=== PATIENT | female | born 1970 | race Caucasian/White ===

== ENCOUNTER → 2017-06-03 08:47 | Outpatient (CLI) | payer MEDICAID, SELFPAY ==
--- NOTE | 2017-06-03 08:51 | US_ITS ---
US thyroid HISTORY: Thyromegaly, weight gain and fatigue ITS.REASON: THYROMEGALY ORDERING PHYSICIAN: Anne Hancock PATIENT AGE: 47 years COMPARISON: None FINDINGS: Right lobe: The right lobe measures 4.3 x 1.3 x 1.6 cm. Homogeneous echogenicity. No mass. Left lobe: Left lobe measures 3.9 x 1.2 x 1.3 cm. Homogeneous echogenicity. No mass. Isthmus: The isthmus is slightly prominent measuring up to 5 mm in thickness. IMPRESSION: Mild thyromegaly otherwise negative thyroid ultrasound. No thyroid mass evident
== END ==
PROVIDERS: Family Provider Internal Medicine Adolescent Medicine; PCP Internal Medicine Adolescent Medicine; Visit Provider Nurse Practitioner Family
DX: E01.0 Iodine-deficiency related diffuse (endemic) goiter (principal)
CPT/HCPCS: 76536

== ENCOUNTER → 2020-11-01 18:36 | Outpatient (CLI) | payer OTHER, SELFPAY ==
[2020-11-01 19:16] LABS: Basophils % 0.3 % (0.1-2.0); Eosinophils # 0.2 K/mm3 (0.0-0.4); Eosinophils % 1.5 % (0.1-12.0); Hemoglobin 15.1 g/dL (12.2-16.2); Lymphocytes # 2.6 K/mm3 (0.7-4.5); Lymphocytes % 25.7 % (10-50); Mean Corpuscular HGB Conc 32.9 g/dL (31.8-35.4); Mean Corpuscular Hemoglobin 29.2 pg (27.0-31.2); Mean Corpuscular Volume 88.7 fl (81-99); Mean Platelet Volume 9.5 fl (7.4-10.4); Monocytes # 0.4 K/mm3 (0.1-1.0); Monocytes % 4.3 % (1.7-9.3); Neutrophils # 6.8 K/mm3 (1.8-7.8); Neutrophils % 68.3 % (37.0-80.0); Platelet Count 328 K/mm3 (142-424); Red Blood Count 5.19 M/mm3 (4.20-5.40); Red Cell Distribution Width 14.2 % (11.5-17.5)
[2020-11-01 19:39] LABS: Chloride 106 mmol/L (98-107)
[2020-11-01 19:40] LABS: Potassium 4.8 mmoL/L (3.5-5.1); Sodium 140 mmol/L (136-145)
[2020-11-01 19:42] LABS: Alanine Aminotransferase 24 U/L (12-78); Albumin Level 4.5 g/dl (3.5-5.0); Albumin/Globulin Ratio 1.6 (1.1-1.8); Alkaline Phosphatase 44 U/L (38-126); Anion Gap 13.8 mEq/L (5-15); Aspartate Amino Transferase 24 U/L (14-36); Bilirubin,Total 0.4 mg/dl (0.2-1.3); Blood Urea Nitrogen 16 mg/dl (7-17); Carbon Dioxide 25 mmol/L (22.0-30.0); Cholesterol 200 mg/dl (140-200); Estimated Glomerular Filt Rate 106 ml/min (>60); GFR (African American) 129 ML/MIN (>60); Globulin 2.9 g/dL (1.3-3.2); Total Protein,Serum 7.4 g/dl (6.3-8.2); Triglycerides 111 mg/dl (30-150); VLDL Cholesterol 22 mg/dL (0-40)
[2020-11-01 19:43] LABS: Calcium 9.4 mg/dl (8.4-10.2); Chol/HDL Ratio 4.3 (1-3.5); Glucose 101 mg/dl (74-100); HDL Cholesterol 47 mg/dl (40-60)
[2020-11-01 19:54] LABS: Direct LDL Cholesterol 120.86 mg/dL (100-129)
[2020-11-01 20:12] LABS: Thyroid Stimulating Hormone 1.06 uIU/mL (0.465-4.68)
[2020-11-01 21:48] LABS: 25-OH Vitamin D, Total 41.4 ng/mL (30-100)
== END ==
PROVIDERS: Visit Provider Nurse Practitioner Family
DX: L40.59 Other psoriatic arthropathy (principal); R63.5 Abnormal weight gain; E78.5 Hyperlipidemia, unspecified
CPT/HCPCS: 80053; 80061; 82306; 84443; 85025

== ENCOUNTER → 2021-02-19 09:37 | Outpatient (CLI) | payer OTHER, SELFPAY ==
--- NOTE | 2021-02-19 09:42 | FL_ITS ---
PROCEDURE: FL UPPER GI W AIR CLINICAL INDICATION: DYSPHAGIA COMPARISON: No exams were available for comparison TECHNIQUE: FLUOROSCOPY TIME : 1.32 minutes FINDINGS: The esophagus, stomach, and duodenum have an unremarkable appearance.There is no evidence of hiatal hernia. No ulcer or mass evident. There is mild prominence of the mucosa at the duodenal bulb and 2nd portion of the duodenum. There is normal peristalsis. The duodenal C-loop is nondisplaced. IMPRESSION: Mild prominence of the mucosa of the duodenal bulb and 2nd portion of the duodenum which may be seen with duodenitis. Otherwise negative Dictated by: Galdino Monzon MD 02/19/2021 13:57 Galdino Monzon MD in [place] 02/19/2021 13:57
== END ==
PROVIDERS: PCP Internal Medicine Adolescent Medicine; Visit Provider Nurse Practitioner Family
DX: R13.10 Dysphagia, unspecified (principal)
CPT/HCPCS: 74246

== ENCOUNTER → 2021-03-27 07:50 | Outpatient (CLI) | payer OTHER, SELFPAY | PROVIDERS: Visit Provider Internal Medicine | DX: Z20.822 Contact with and (suspected) exposure to COVID-19 (principal) | CPT/HCPCS: C9803; U0003; U0005 ==

== ENCOUNTER 2021-03-28 10:02 | Day surgery (SDC) | payer OTHER, SELFPAY ==
[2021-03-26 10:39] VITALS: BMI 28.1
--- NOTE | 2021-03-26 12:46 | SUR.PREOP ---
03/26/21 @ 9657 Called [facility] Orly colon prep Jaron. SPoke with Desean alcala. Order from Dr Cao
--- NOTE | 2021-03-26 12:48 | SUR.PREOP ---
TC to pt to let her know that GoLytely prep was called in to [facility] pharmacy in [place]. Also reviewed prep instructions with pt. Pt verbalized understanding of all instructions.
[2021-03-28] VITALS (7 sets, daily range): BP systolic 73–123; BP diastolic 38–84; PULSE 64–78; RESP 14–18; TEMP 36.1–37.3; O2SAT 91–100
[2021-03-28 10:21] LABS: Urine Pregnancy, HCG Qual. Negative (Negative)
--- NOTE | 2021-03-28 11:19 | HMH.SCOPE ---
- Procedure: Date: 03/28/21 Patient Date of :: 1970 Procedure Performed:: EGD Indications:: Abdominal pain. GERD. Intermittent dysphagia Performing Provider:: Tomas Cao MD Referring Provider:: Darian Escamilla MD Sedation:: See RN notes Procedure:: The gastroscope was gently passed through the incisoral orifice into the oral cavity and under direct visualization the esophagus was intubated. The endoscope was passed down the esophagus, through the stomach, and into the duodenum. Color, texture, mucosa, and anatomy of the esophagus, stomach, and duodenum were carefully examined with the scope. Findings:: Oropharynx: normal Esophagus: normal. Biopsies obtained distal and mid esophagus. Empiric dilatation performed sequentially with 18-20 mm tts balloon EG Junction: intact at 40 cm Cardia: normal Fundus: normal Body: Mild gastritis. Biopsies obtained Antrum: Mild gastritis. Biopsies obtained Duodenal bulb: Edematous appearing mucosa. Mild duodenitis. Biopsies obtained Duodenum (second and third portion): normal. Biopsies obtained Recommendations:: Await pathology results Recomend use of omeprazole (prilosec) or famotidine (pepcid) as needed Follow up with referring provider Complications:: None Estimated blood obtained (mL): 0
--- NOTE | 2021-03-28 11:23 | HMH.SCOPE ---
- Procedure: Date: 03/28/21 Patient Date of :: 1970 Procedure Performed:: Colonoscopy Indications:: The patient is a 51 year old who presents for screening colonoscopy Performing Provider:: Tomas Cao MD Referring Provider:: Darian Escamilla MD Sedation:: See RN notes Procedure:: After placing the patient in the left lateral decubitus position, the colonoscopy was gently inserted into the rectum and under direct visualization advanced to the cecum which was identified by transillumination in the right lower quadrant, identification of the ileocecal valve, appendiceal orifice, and cecal strap. Color, texture, mucosa, and anatomy of the colon were carefully examined with the scope. Findings:: Anal canal: normal Rectum: normal Sigmoid colon: Sessile polyp less than 5 mm in size. Removed with cold snare polypectomy. Polyp retrieved. Diverticulosis. Descending colon: normal without polyps or inflammatory changes Splenic flexure: normal Transverse colon: normal without polyps or inflammatory changes Hepatic flexure: normal Ascending colon: normal without polyps or inflammatory changes Cecum: normal Terminal ileum: not visualized Recommendations:: Await pathology results Repeat colonoscopy in 5 years Follow up with referring provider Complications:: none Estimated blood obtained (mL): 0
--- NOTE | 2021-03-28 13:28 | HMH.ANESCL ---
[facility] Anesthesia Checklist - Patient Identification Patient Identification: Arm Band, Verbal (Name & ) - Structural Data Admitted From: Home Planned Operative Procedure/s: EGD/Colonoscopy Consent for Planned Operative Procedure(s) Verified: Yes Verified Documents: Surgical Consent - NPO Status Verified Time NPO: 00:00 - Chart Verification Results Verified: None - Airway Assessment C-Spine Mobility Assessed: Yes TMJ Mobility Assessed: Yes Dentition: Good Dentition - Neurological Assessment Level of Consciousness: Awake, Alert, Appropriate - Anesthesia Plan Anesthesia Risk discussed: Yes ASA Class: II Anesthesia Type: General [facility] History I have reviewed the patient's past medical history: Yes Medical History: Reports:: Hyperlipidemia Denies:: Cancer, Diabetes Mellitus Type 1, Diabetes Mellitus Type 2, Internal Pacemaker, MRSA, Seizures *Have you ever received a pneumonia vaccine?: No *Have you received a flu vaccine this season?: Yes Anesthesia experience/problems:: none Other Surgeries: No: Pacemaker Amputation: No Fractures: No - *Social History Last grade of school completed: High school graduate Smoking Status: Current every day smoker Tobacco Type: cigarettes # Packs/Day (cigarettes): 1 Alcohol Intake: never Substance Use Type: denies use *Occupational Status:: employed *Travel in the last 8 weeks: None Family Hx:: No significant family history
== END 2021-03-28 12:17 | disposition home or self-care (01) ==
LOC: OUTP 10:03
PROVIDERS: PCP Internal Medicine Adolescent Medicine; Visit Provider Internal Medicine
PROC: 0DJ08ZZ Inspection of Upper Intestinal Tract, Via Natural or Artificial Opening Endoscopic (ICD-10-PCS; CPT 43235; principal; 2021-03-28 11:00)
DX: Z12.11 Encounter for screening for malignant neoplasm of colon (principal); K21.9 Gastro-esophageal reflux disease without esophagitis; K29.80 Duodenitis without bleeding; K63.5 Polyp of colon; K57.32 Diverticulitis of large intestine without perforation or abscess without bleeding; E78.5 Hyperlipidemia, unspecified; Z88.1 Allergy status to other antibiotic agents; Z88.6 Allergy status to analgesic agent; Z88.8 Allergy status to other drugs, medicaments and biological substances; Z79.899 Other long term (current) drug therapy
CPT/HCPCS: 43239; 45385; 81025; C1726

== ENCOUNTER → 2021-04-04 07:51 | Outpatient (CLI) | payer OTHER, SELFPAY ==
--- NOTE | 2021-04-04 07:54 | MM_ITS ---
PROCEDURE INFORMATION: Exam: Screening 3D Mammography Exam date and time: 04/04/2021 7:54 AM Age: 51 years old Clinical indication: Encounter for screening mammogram for malignant neoplasm of breast TECHNIQUE: Imaging protocol: Screening tomosynthesis and 2D mammography including computer-aided detection (CAD) when performed. COMPARISON: DMSB DIGITAL MAMM-SCREEN BILATERAL 12/20/2011 1:03 PM FINDINGS: MAMMOGRAPHY: Breast composition: The breast tissue is heterogeneously dense, which may obscure small masses. Mass: 1.9 cm mass in the middle third of the left approximate 3 o'clock axis may be on the basis of underlying cystic change Architectural distortion: None. Calcifications: No suspicious calcifications. Asymmetric density: None. Skin thickening: None. Axillary adenopathy: None. IMPRESSION: Patient to be recalled for left breast ultrasound for further evaluation of a left breast mass. ASSESSMENT: BI-RADS Category 0: Incomplete- Need Additional Imaging Evaluation and/or Prior Mammograms for Comparison
--- NOTE | 2021-04-04 07:54 | CT_ITS ---
FINAL REPORT CLINICAL HISTORY: CURRENT SMOKER FINDINGS: Low-Dose Chest CT CTDI vol (mGy): 2.90 DLP (mGy-cm): 87.25 Axial images were obtained from the lung apex to the mid abdomen by computed tomography. Low-dose protocol was utilized. FINDINGS: CHEST: There is no axillary adenopathy. There is no hilar or mediastinal adenopathy. The heart is proper size. There is no pericardial or pleural effusion. Limited images of the upper abdomen are unremarkable. Lung window images demonstrate mild emphysema. There is mild scarring. There are 2 adjacent nodules in the superior segment of the right lower lobe measuring 10 mm and 9 mm versus a focally dilated blood vessel. This could possibly represent a focal AVN. There is a 3 mm nodule in the left lung base on image 47. IMPRESSION: Lung RADS category 4A. Recommend PET-CT and/or post contrast chest CT. Reviewed, Interpreted and Dictated by Levy Galindo III, MD Transcribed by Yara Florence Authenticated by Levy Galindo III, MD on 04/04/2021 02:51:49 PM [facility]
== END ==
PROVIDERS: PCP Internal Medicine Adolescent Medicine; Visit Provider Nurse Practitioner Family
DX: Z12.31 Encounter for screening mammogram for malignant neoplasm of breast (principal); Z87.891 Personal history of nicotine dependence; Z12.2 Encounter for screening for malignant neoplasm of respiratory organs
CPT/HCPCS: 71271; 77063; 77067

== ENCOUNTER → 2021-04-17 12:38 | Outpatient (CLI) | payer OTHER, SELFPAY ==
--- NOTE | 2021-04-17 12:42 | CT_ITS ---
FINAL REPORT CLINICAL HISTORY: PULMONARY NODULES COMPARISON: 04/04/2021 FINDINGS: Axial CT images of the chest were obtained with contrast. Coronal reformatted images were also obtained. This study was performed with techniques to keep radiation doses as low as reasonably achievable, (ALARA). Individualized dose reduction techniques using automated exposure control or adjustment of mA and/or KV according to the patient's size were employed. There is mild upper right paratracheal adenopathy measuring up to 1.6 cm which is nonspecific, may be reactive. No axillary mass is identified. Again identified is anterior right lower lobe nodules measuring up to 10 and 9 mm which do not show evidence of contrast enhancement. These do not appear to be dilated blood vessels. Mild atelectasis is noted. Limited images of the upper abdomen reveal no mass or localized inflammatory process. IMPRESSION: Anterior right lower lobe nodules which do not appear to be dilated blood vessels but have a nonspecific appearance. Recommend PET/CT or short-term interval follow-up CT in 3 months. Reviewed, Interpreted and Dictated by Levy Galindo III, MD Transcribed by Rosalina Castro Authenticated by Levy Galindo III, MD on 04/17/2021 02:32:24 PM [facility]
--- NOTE | 2021-04-17 12:42 | US_ITS ---
PROCEDURE INFORMATION: Exam: US Left Breast, Complete Exam date and time: 04/17/2021 12:42 PM Age: 51 years old Clinical indication: Patient recalled for further evaluation of a left breast mass TECHNIQUE: Imaging protocol: Complete ultrasound of all four quadrants of the Left breast and the retroareolar regions, including ultrasound of the axilla when performed. COMPARISON: MG MM DIG SCREENING MAMM BI W/CAD 04/04/2021 8:00 AM FINDINGS: Breast: Sonographic images of the left breast including the retroareolar region, all 4 quadrants and the axilla do not demonstrate any solid masses. 1.9 cm cyst in the 2 o'clock axis 5 cm from the nipple corresponds to the mass on mammography. No architectural distortion or acoustical shadowing. No skin thickening or axillary adenopathy. IMPRESSION: Mass on screening mammography corresponds to underlying cystic change sonographically. There is no mammographic evidence of malignancy.Annual bilateral mammographic screening is recommended unless otherwise clinically indicated. ASSESSMENT: BI-RADS Category 2: Benign
== END ==
PROVIDERS: PCP Internal Medicine Adolescent Medicine; Visit Provider Nurse Practitioner Family
DX: R91.8 Other nonspecific abnormal finding of lung field (principal); R92.8 Other abnormal and inconclusive findings on diagnostic imaging of breast
CPT/HCPCS: 71260; 76641; Q9967

== ENCOUNTER → 2021-10-25 07:54 | Outpatient (CLI) | payer OTHER, SELFPAY ==
--- NOTE | 2021-10-25 09:21 | CT_ITS ---
FINAL REPORT TECHNIQUE: Axial images were obtained from the lung apex to the mid abdomen by computed tomography. Coronal reformatted images were obtained. This study was performed with techniques to keep radiation doses as low as reasonably achievable, (ALARA). Individualized dose reduction techniques using automated exposure control or adjustment of mA and/or kV according to the patient''s size were employed. CLINICAL HISTORY: Lung nodule COMPARISON: April 17, 2021 FINDINGS: There is no axillary adenopathy. There is no hilar adenopathy. There are several borderline size mediastinal lymph nodes including a subcarinal lymph node measuring up to 1.5 cm and a lower right paratracheal lymph node measuring up to 1.3 cm. Heart size is normal. There is no pericardial or pleural effusion. Limited images of the upper abdomen are unremarkable. Again noted are anterior right lower lobe nodules measuring 9 mm and 10 mm which are stable. No new mass or nodule is identified. There is mild atelectasis or scarring in the lung bases. There is a calcified granuloma in the right upper lobe. IMPRESSION: Stable findings. Consider additional follow-up chest CT in 12 months. Reviewed, Interpreted and Dictated by Levy Galindo III, MD Transcribed by Yara Florence Authenticated and [facility]
== END ==
PROVIDERS: PCP Internal Medicine Adolescent Medicine; Visit Provider Internal Medicine Pulmonary Disease
DX: R06.00 Dyspnea, unspecified (principal); R91.8 Other nonspecific abnormal finding of lung field
CPT/HCPCS: 71250; 94060; 94618; 94726; 94729

== ENCOUNTER → 2021-11-22 11:23 | Outpatient (CLI) | payer OTHER, SELFPAY ==
--- NOTE | 2021-11-22 11:27 | XR_ITS ---
FINAL REPORT CLINICAL HISTORY: SACROILIAC PAIN, low back pain FINDINGS: SACROILIAC JOINTS Three views demonstrate no acute fracture or dislocation. The sacral arches are intact. There is mild degenerative change of the right hip and right SI joint. No soft tissue abnormality is seen. IMPRESSION: Mild degenerative change. Reviewed, Interpreted and Dictated by Levy Galindo III, MD Transcribed by Paramjit Mendez Authenticated and [facility]
== END ==
PROVIDERS: PCP Nurse Practitioner Family; Visit Provider Nurse Practitioner Family
DX: M53.3 Sacrococcygeal disorders, not elsewhere classified (principal)
CPT/HCPCS: 72202

== ENCOUNTER → 2022-04-22 13:02 | Outpatient (CLI) | payer OTHER, SELFPAY ==
--- NOTE | 2022-04-22 13:02 | CT_ITS ---
FINAL REPORT TECHNIQUE: Thin section axial CT images of the facial bones and sinuses were obtained without contrast. Coronal reformatted images were also obtained. This study was performed with techniques to keep radiation doses as low as reasonably achievable, (ALARA). Individualized dose reduction techniques using automated exposure control or adjustment of mA and/or kV according to the patient's size were employed. CLINICAL HISTORY: sinusitis FINDINGS: CT SINUSES There is lobular mucoperiosteal thickening in the inferior right maxillary sinus. No air fluid levels are identified. The ostiomeatal units have an unremarkable appearance. The nasal septum is in the midline. No fracture or acute bony abnormality is identified. IMPRESSION: Lobular mucoperiosteal thickening in the inferior right maxillary sinus. Reviewed, Interpreted and Dictated by Ezequiel Bateman MD Transcribed by Yara Florence Authenticated and . [facility]
== END ==
PROVIDERS: PCP Nurse Practitioner Family; Visit Provider Student in an Organized Health Care Education/Training Program
DX: J32.9 Chronic sinusitis, unspecified (principal)
CPT/HCPCS: 70486

== ENCOUNTER → 2022-11-04 10:27 | Outpatient (CLI) | payer OTHER, SELFPAY ==
--- NOTE | 2022-11-04 10:28 | CT_ITS ---
FINAL REPORT CLINICAL HISTORY: lung cancer screening smokes 1 pk per day x 30 yrs copd COMPARISON: 10/25/2021, 04/04/2021 FINDINGS: CTDI vol (mGy): 2.90 DLP: 96.[address] images of the chest were obtained using the low-dose protocol for screening. A few scattered mediastinal lymph nodes are seen but unchanged from prior exam. No axillary mass or adenopathy is identified. On the lung window images, lobular, contiguous nodules are seen in the anterior right lower lobe with the most anterior nodule measuring 8 mm and posterior nodule measuring 10 mm. This is best seen on image 37 of series 3. These are stable from April 2021. IMPRESSION: Stable pulmonary nodules from 2021. Lung RADS category 2. Recommend 12 month followup low-dose CT for further evaluation. Reviewed, Interpreted and Dictated by Ezequiel Bateman MD Transcribed by Arabella Nunez Authenticated and [facility]
== END ==
PROVIDERS: PCP Nurse Practitioner Family; Visit Provider Internal Medicine Pulmonary Disease
DX: Z87.891 Personal history of nicotine dependence (principal); Z12.2 Encounter for screening for malignant neoplasm of respiratory organs
CPT/HCPCS: 71271

== ENCOUNTER → 2022-11-29 10:53 | Outpatient (CLI) | payer OTHER, SELFPAY ==
--- NOTE | 2022-11-29 10:59 | MM_ITS ---
PROCEDURE INFORMATION: Exam: MG Bilateral Screening 3D Mammography Exam date and time: 11/29/2022 10:58 AM Age: 52 years old Clinical indication: Screening examination; Family history of breast cancer in grandmother and Cousin TECHNIQUE: Imaging protocol: Bilateral Screening tomosynthesis and 2D mammography including computer-aided detection (CAD) when performed. COMPARISON: 1. MG MM DIG SCREENING MAMM BI W/CAD 04/04/2021 8:00 AM 2. MG DMSB DIGITAL MAMM-SCREEN BILATERAL 12/20/2011 1:03 PM FINDINGS: MAMMOGRAPHY: Breast composition: The breasts are heterogeneously dense, which may obscure small masses. Mass: None. Architectural distortion: None. Calcifications: No suspicious calcifications. Asymmetric density: None. Skin thickening: None. Axillary adenopathy: None. IMPRESSION: No mammographic evidence of malignancy. Annual screening is recommended unless otherwise clinically indicated. ASSESSMENT: BI-RADS Category 1: Negative
== END ==
PROVIDERS: PCP Nurse Practitioner Family; Visit Provider Nurse Practitioner Family
DX: Z12.31 Encounter for screening mammogram for malignant neoplasm of breast (principal)
CPT/HCPCS: 77063; 77067

== ENCOUNTER 2023-11-12 10:39 | Outpatient (CLI) | payer OTHER, SELFPAY ==
--- NOTE | 2023-11-12 10:39 | CT_ITS ---
FINAL REPORT CLINICAL HISTORY: lung cancer screening quit smoking 2 weeks ago. smoked 1 ppd x 30 years COMPARISON: 11/04/2022 FINDINGS: Axial images were obtained from the lung apex to the mid abdomen by computed tomography. Low-dose protocol was utilized. CTDl vol(mGy): 2.90 DLP (mGy-cm): 95.34 FINDINGS: There is no axillary adenopathy. There is no hilar or mediastinal adenopathy. The heart size is normal. There is no pericardial or pleural effusion. Limited images of the upper abdomen demonstrate mild fatty infiltration of the liver.. On the lung window images, lobular, contiguous nodules are seen in the anterior right lower lobe with the most anterior nodule measuring 8 mm and posterior nodule measuring 10 mm. This is best seen on image 31 of series 3. These are stable from April 2021. No new nodules are identified. IMPRESSION: Stable pulmonary nodules. Lung RADS category 2. Recommend 12 month follow-up low-dose chest CT. Reviewed, Interpreted and Dictated by Ezequiel Bateman MD Transcribed by Arti Bajwa Authenticated and [facility]
== END 2023-11-12 23:59 | disposition home or self-care (01) ==
LOC: RAD 10:39
PROVIDERS: PCP Nurse Practitioner Family; Visit Provider Internal Medicine Pulmonary Disease
DX: F17.210 Nicotine dependence, cigarettes, uncomplicated (principal)
CPT/HCPCS: 71271

== ENCOUNTER 2024-06-15 09:45 | Outpatient (CLI) | payer MEDICAID, SELFPAY ==
[2024-06-15 10:20] VITALS: PULSE 80
[2024-06-15] MEDS: LEVALBUTEROL 1.25MG/3ML NEB 1.25 MG IH (10:25)
== END 2024-06-15 23:59 | disposition home or self-care (01) ==
LOC: RT 09:46
PROVIDERS: PCP Nurse Practitioner Family; Visit Provider Internal Medicine Pulmonary Disease
DX: J44.9 Chronic obstructive pulmonary disease, unspecified (principal); R06.09 Other forms of dyspnea
CPT/HCPCS: 94010; 94618; 94640; J7614

== ENCOUNTER 2024-08-10 11:53 | Emergency (ER) | payer MEDICAID, SELFPAY ==
[2024-08-10 12:06] VITALS: BP 138/77; PULSE 87; RESP 20; TEMP 36.8; O2SAT 100; BMI 33.2
--- NOTE | 2024-08-10 12:07 | CT_ITS ---
FINAL REPORT CLINICAL HISTORY: rule out abscess on chin COMPARISON: None FINDINGS: CT SINUSES TECHNIQUE: Thin section axial CT with coronal and sagittal reconstructions were obtained after the administration of IV contrast. This study was performed with techniques to keep radiation doses as low as reasonably achievable, (ALARA). Individualized dose reduction techniques using automated exposure control or adjustment of mA and/or kV according to the patient's size were employed. The lower incisors and right lower teeth appear to be absent. At the level of the lateral right lower incisor, there appears to be a region of bony erosion measuring up to 9 mm in diameter. This may be related to dental abscess. There is overlying soft tissue inflammation. No discrete fluid collection identified. There are a few small submandibular lymph nodes which are asymmetrically more numerous on the right measuring up to 1.2 cm. There are linear lucencies in the right anterior mandible, well seen on images 74-81 of series 1002. Question of submandibular nondisplaced fracture possibly related to dental extraction. Correlate clinically. IMPRESSION: Possible mandible fracture. Possible area of bony erosion lateral right lower incisor. Reviewed, Interpreted and Dictated by Ezequiel Bateman MD Transcribed by Rhona De Jesus Authenticated and [facility]
--- NOTE | 2024-08-10 12:11 | ED_ITS ---
Discharge Plan Disposition Patient Disposition: Xfer Short-Term Hosp Condition: Fair Prescriptions Prescriptions: No Action Ajovy Syringe 225 mg/1.5 mL syringe 1 ml SQ MONTHLY nystatin 100,000 unit/gram cream 1 applic topical DAILY folic acid 1 mg tablet 1 mg PO DAILY diclofenac sodium 1 % kit 2 g topical BID Rx Instructions: apply to single elbow, wrist or hand; for hand includes palm/fingers/back of hand Nurtec ODT 75 mg tablet,disintegrating 75 mg PO .PRN trazodone 50 mg tablet 50 mg PO DAILY omeprazole 20 mg capsule,delayed release(DR/EC) 20 mg PO DAILY Cosentyx Pen 150 mg/mL pen injector 300 mg SQ Q4W celecoxib 100 mg capsule 100 mg PO DAILY leflunomide 10 mg tablet 10 mg PO DAILY valsartan-hydrochlorothiazide 80-12.5 mg tablet 1 tab PO DAILY Patient Comments: TAKE 1 TABLET BY MOUTH EVERY DAY FOR 30 DAYS cetirizine 10 mg tablet 10 mg PO DAILY Patient Comments: TAKE 1 TABLET BY MOUTH EVERY DAY FOR 90 DAYS ketotifen fumarate 0.025 % (0.035 %) drops 1 drp Eye-Both BID Patient Comments: INSTILL 1 DROP INTO BOTH EYES TWICE DAILY venlafaxine 75 mg capsule,extended release 24hr 75 mg PO DAILY Patient Comments: TAKE 1 CAPSULE BY MOUTH EVERY DAY FOR 30 DAYS atorvastatin 80 mg tablet 80 mg PO DAILY Patient Comments: TAKE 1 TABLET BY MOUTH EVERY DAY FOR 90 DAYS Combivent Respimat 20-100 mcg/actuation mist 1 puff IH Q6H PRN (Reason: shortness of breath or wheezing) 90 Days Qty: 4 3RF Stiolto Respimat 2.5-2.5 mcg/actuation mist 2 puff inhalation DAILY 90 Days Qty: 4 2RF fluticasone propionate 50 mcg/actuation spray,suspension See Rx Instructions .ROUTE .COMPLEX Qty: 16 3RF Dose Instruction: USE 2 SPRAYS IN EACH NOSTRIL ONCE DAILY Rx Instructions: USE 2 SPRAYS IN EACH NOSTRIL ONCE DAILY nicotine (polacrilex) 2 mg gum See Rx Instructions .ROUTE .COMPLEX Qty: 100 0RF Dose Instruction: CHEW [address] IT IN CHEEK EVERY 4 HOURS NEEDED FOR NICOTINE CRAVINGS Rx Instructions: CHEW [address] IT IN CHEEK EVERY 4 HOURS NEEDED FOR NICOTINE CRAVINGS montelukast 10 mg tablet See Rx Instructions .ROUTE .COMPLEX Qty: 90 3RF Dose Instruction: TAKE 1 TABLET BY MOUTH EVERY DAY Rx Instructions: TAKE 1 TABLET BY MOUTH EVERY DAY azelastine 137 mcg (0.1 %) spray,non-aerosol 2 spray intranasal HS 90 Days Qty: 30 2RF Rx Instructions: administer into each nostril halobetasol propionate 15 GM ointment 15 gm TP DAILY ibuprofen 600 MG tablet 1 mg PO HS PRN (Reason: pain) Referrals Follow up/Referrals: Anne Hancock APRN [Primary Care Provider] - See instructions Clinical Impressions Clinical Impression: Shilo angina, Cellulitis of submental space Stand Alone Forms Stand Alone Forms: Transfer Record - ED Instructions Patient Instructions: DI for Skin Abscess Print Language Print Language: Frisian Discharge ED Provider: Paul Rodas General Adult HPI <Josselyn Pastor APRN - Last Filed: 08/10/24 12:14> General Chief complaint: Skin/Abscess/Foreign Body Stated complaint: poss infection on chin w/redness headache Time Seen by Provider: 08/10/24 11:59 History of Present Illness HPI narrative: Bridgette Herr is a 54-year-old female who presents emergency room today with complaints of swelling of her chin. She recently had some dental work done in the last several weeks, has had at least 9 teeth pulled. Has been on azithromycin, Flagyl, and doxycycline, last finished Flagyl on August 04. Reports that she had a significant amount of drainage out of her chin about a week ago. Has been afebrile. No other complaints noted at this time. Please note that the above description of symptoms, and this electronic medical record under categorization of recalled from ER triage doctor by RN are reflective of an initial nursing assessment, however, is not reflective of my full history and physical exam that was personally taken and clarified. Consequentially, this proceeding description of symptoms, which may include the patient's cauterized chief complaint in the EMR, do not reflect my personal clinical impression, and the ultimate description of the history of present illness stated complaints should be deferred to this section of this note. Unless stated otherwise were congruent with the section of the note, additional signs, symptoms, or incongruence can be interpreted as in or accurate with my clinical impression. Related Data Home Medications ?Medication ?Instructions ?Recorded ?Confirmed fremanezumab-vfrm 225 mg/1.5 mL 1 ml SQ MONTHLY migraines 10/26/20 06/15/24 subcutaneous syringe (Ajovy Syringe) halobetasol propionate 0.05 % 15 gm topical DAILY * 03/26/21 06/15/24 topical ointment ibuprofen 600 mg tablet 1 mg PO HS PRN pain 03/26/21 06/15/24 diclofenac sodium 1 % gel topical 2 g topical BID 11/14/22 06/15/24 kit folic acid 1 mg tablet 1 mg PO DAILY 11/14/22 06/15/24 nystatin 100,000 unit/gram topical 1 applic topical DAILY 11/14/22 06/15/24 cream omeprazole 20 mg capsule,delayed 20 mg PO DAILY 11/14/22 06/15/24 release rimegepant 75 mg disintegrating 75 mg PO .PRN 11/14/22 06/15/24 tablet (Nurtec ODT) trazodone 50 mg tablet 50 mg PO DAILY 11/14/22 06/15/24 secukinumab 150 mg/mL subcutaneous 300 mg SQ Q4W 05/16/23 06/15/24 pen injector (Cosentyx Pen) atorvastatin 80 mg tablet 80 mg PO DAILY 06/15/24 06/15/24 celecoxib 100 mg capsule 100 mg PO DAILY 06/15/24 06/15/24 cetirizine 10 mg tablet 10 mg PO DAILY 06/15/24 06/15/24 ketotifen fumarate 0.025 % (0.035 1 drp Eye-Both BID 06/15/24 06/15/24 %) eye drops leflunomide 10 mg tablet 10 mg PO DAILY 06/15/24 06/15/24 valsartan 80 1 tab PO DAILY 06/15/24 06/15/24 mg-hydrochlorothiazide 12.5 mg tablet venlafaxine 75 mg capsule,extended 75 mg PO DAILY 06/15/24 06/15/24 release 24 hr Previous Rx's ?Medication ?Instructions ?Recorded ipratropium 20 mcg-albuterol 100 1 puff inhalation Q6H PRN 12/04/23 mcg/actuation mist for inhalation shortness of breath or wheezing 90 (Combivent Respimat) days #4 grams tiotropium 2.5 mcg-olodaterol 2.5 2 puff inhalation DAILY 90 days #4 04/15/24 mcg/actuation mist for inhalation grams (Stiolto Respimat) fluticasone propionate 50 See Rx Instructions .Route 05/17/24 mcg/actuation nasal .COMPLEX #16 mL spray,suspension nicotine (polacrilex) 2 mg gum See Rx Instructions .Route 05/31/24 .COMPLEX #100 gums montelukast 10 mg tablet See Rx Instructions .Route 06/28/24 .COMPLEX #90 tabs azelastine 137 mcg (0.1 %) nasal 2 spray intranasal HS 90 days #30 07/05/24 spray mL Allergies Allergy/AdvReac Type Severity Reaction Status Date / Time albuterol Allergy Unknown Unknown Verified 06/15/24 11:24 allergy reaction amoxicillin (From Augmentin) Allergy Unknown Unknown Verified 06/15/24 11:24 allergy reaction bupropion Allergy Unknown Unknown Verified 06/15/24 11:24 allergy reaction cephalexin (From Keflex) Allergy Unknown Unknown Verified 06/15/24 11:24 allergy reaction clavulanic acid (From Allergy Unknown Unknown Verified 06/15/24 11:24 Augmentin) allergy reaction codeine Allergy Unknown Unknown Verified 06/15/24 11:24 allergy reaction levofloxacin (From Levaquin) Allergy Unknown Unknown Verified 06/15/24 11:24 allergy reaction phenol (From Chloraseptic) Allergy Unknown Unknown Verified 06/15/24 11:24 allergy reaction PFSH <Josselyn Pastor, BROOMCORN THRESHER - Last Filed: 08/10/24 12:14> [facility], LAT[facility] Disclaimer: The information contained in this section may have been updated after the patient was seen, as this information can be updated by other users. Medical History Smoking greater than 30 pack years COPD (chronic obstructive pulmonary disease) Allergic rhinitis, unspecified Mediastinal lymphadenopathy Screening for lung cancer Tobacco abuse disorder Tobacco abuse counseling Pulmonary emphysema Multiple pulmonary nodules Smoking greater than 30 pack years Dyspnea on exertion Chronic sinusitis Surgical History H/O nasal septoplasty Family History Other No significant family history Social History Smoking Status: Never smoker smoking status stop date: 10/28/23 alcohol intake: never substance use type: denies use current occupational status: employed Travel in the last 8 weeks?: None caffeine: Yes Have you lived/traveled outside US in past 30 days?: No Contact w/someone who lives/traveled outside US past 30 days?: No Exposure to someone with infectious disease in past 14 days?: No Do you have a fever (greater than 100.4 F or 38 C)?: No Have you tested positive for COVID-19?: No Exposed to someone with COVID-19 in past 14 days?: No Do you have a sore throat?: No Do you have a cough?: No Do you have any weakness?: No Do you have any diarrhea?: No Are you experiencing any unusual bleeding?: No Do you have any muscle aches/pain?: No Do you have any abdominal pain?: Yes Are you experiencing loss of taste or smell?: No Other Medical History Have you received the Flu Vaccine for this season: Yes Have you received the Pneumonia Vaccine: Yes <Paul Rodas MD - Last Filed: 08/10/24 15:46> ROS Obtained: Yes All systems reviewed & no additional complaints except as documented Physical Exam <Paul Rodas MD - Last Filed: 08/10/24 15:46> General General appearance: alert and in no apparent distress Head Head exam: atraumatic and normocephalic Eye Eye exam: Present normal appearance, PERRL and EOMI ENT ENT exam: Present other (Submental redness, induration, significant tenderness. No evidence of tonsillitis, exudate, pharyngeal erythema, uvular deviation, palatal swelling, trismus,angioedema, or other abnormal leoplodo pharyngeal findings) Neck Neck exam: Present normal inspection, full ROM and trachea midline Respiratory Respiratory exam: Absent respiratory distress, wheezes, stridor, accessory muscle use or prolonged expiratory phase Cardiovascular Cardiovascular exam: Present other (Pulses equal symmetric in upper and lower extremities) Abdominal Exam Abdominal exam: Present soft; Absent distention, tenderness or pulsatile mass Extremities Exam Extremities exam: Absent edema Neurological Exam Neurological exam: Present alert, oriented X3 and CN II-XII intact; Absent motor sensory deficit Skin Skin exam: Present warm and dry; Absent diaphoresis or erythema Medical Decision Making <Josselyn Yund, [employer] THRESHER - Last Filed: 08/10/24 12:14> Medical Records Screening: Per USPSTF and CDC recommendations, given the prevalence of disease in our region, it is our hospital?s policy to screen for HIV and viral Hepatitis for all patients aged 18 and over and those with ongoing risk factors. Vital Signs: 08/10/24 12:06 08/10/24 15:58 08/10/24 16:22 Temperature 98.2 F 98.1 F Temperature Source Oral Oral Pulse Rate 74 87 Pulse Rate [Left Radial] 87 Respiratory Rate 20 16 17 Blood Pressure 141/65 H 135/87 Blood Pressure [Right Arm] 138/77 Blood Pressure Mean [Right Arm] 97 Blood Pressure Source Automatic Cuff Blood Pressure Position Sitting 02 Sat by Pulse Oximetry 100 97 Oxygen Delivery Method Room Air Room Air Room Air Lab Data Lab Results 08/10/24 13:15: WBC 9.5, RBC 4.21, Hgb 11.9 L, Hct 36.7 L, MCV 87.2, MCH 28.3, MCHC 32.4, RDW 13.7, Plt Count 325, MPV 10.1, Neut % (Auto) 70.7, Lymph % (Auto) 18.5, [place] % (Auto) 8.6, Eos % (Auto) 1.5, Baso % (Auto) 0.4, Neut # (Auto) 6.7, Lymph # (Auto) 1.8, [place] # (Auto) 0.8, Eos # (Auto) 0.1, Baso # (Auto) 0.0, Sodium 138, Potassium 4.0, Chloride 108 H, Carbon Dioxide 26, Anion Gap 8.0, BUN 11, Creatinine 0.60, Estimated Creat Clear 132, Estimated GFR 105, Est GFR ( Amer) 127, Glucose 115 H, Calcium 9.3, Total Bilirubin 0.3, AST 37 H, ALT 46, Alkaline Phosphatase 71, Total Protein 7.0, Albumin 3.9, Globulin 3.1, Albumin/Globulin Ratio 1.3 08/10/24 13:15 08/10/24 13:15 Orders (Tests/Meds): ED MEDICATIONS Discontinued Medications Generic Name Dose Route Start Last Admin Trade Name Freq PRN Reason Stop Dose Admin Diphenhydramine HCl 50 mg 08/10/24 12:56 08/10/24 13:26 Diphenhydramine 50mg/Ml Vial IV 09/09/24 12:55 50 mg NEEDED PRN Administration Allergic Reaction Sodium Chloride 1,000 mls @ 999 mls/hr 08/10/24 12:53 08/10/24 13:24 Sod Chlor 0.9% 1000ml Bag IV 08/10/24 13:53 999 mls/hr .Q1H1M ONE Administration Metronidazole 500 mg in 100 mls @ 100 mls/hr 08/10/24 12:53 08/10/24 13:26 Flagyl 500mg/100ml Ivpb IV 08/10/24 13:52 100 mls/hr ONCE ONE Administration Vancomycin/PEG/NADA/Lysine/Water 1.25 gm in 250 mls @ 125 mls/hr 08/10/24 13:15 08/10/24 13:46 Vancomycin 1.25gm/250ml (Peg) Premix IV 08/10/24 15:14 125 mls/hr ONCE ONE Administration Iopamidol 75 ml 08/10/24 13:58 08/10/24 13:58 Iopamidol-370 (76%);100ml Bottle IV 08/10/24 13:59 75 ml ONCE ONE Administration Ketorolac Tromethamine 30 mg 08/10/24 15:20 08/10/24 15:35 Ketorolac 30mg/Ml Vial IV 08/10/24 15:21 30 mg ONCE ONE Administration Sodium Chloride 10 ml 08/10/24 13:58 08/10/24 13:58 Sodium Chloride 0.9% 10ml Syr (Rad Only) IV 08/10/24 13:59 10 ml ONCE ONE Administration ORDERS Category Date Time Status CT facial bones w con Stat Cat Scan 08/10/24 12:[address] soft tissue neck w con Stat Cat Scan 08/10/24 12:12 Completed CBC w/Auto Diff [Complete Blood Count Auto Diff] Stat Lab 08/10/24 13:15 Completed CMP [Comprehensive Metabolic Panel] Stat Lab 08/10/24 13:15 Completed <Paul Rodas MD - Last Filed: 08/10/24 15:46> Medical Records Medical records reviewed: Yes I reviewed the patient's medical records. Corey Inquiry Pt receiving controlled substance: No Corey was queried for this patient: No Vital Signs: 08/10/24 12:06 08/10/24 15:58 08/10/24 16:22 Temperature 98.2 F 98.1 F Temperature Source Oral Oral Pulse Rate 74 87 Pulse Rate [Left Radial] 87 Respiratory Rate 20 16 17 Blood Pressure 141/65 H 135/87 Blood Pressure [Right Arm] 138/77 Blood Pressure Mean [Right Arm] 97 Blood Pressure Source Automatic Cuff Blood Pressure Position Sitting 02 Sat by Pulse Oximetry 100 97 Oxygen Delivery Method Room Air Room Air Room Air Lab Data Lab Results 08/10/24 13:15: WBC 9.5, RBC 4.21, Hgb 11.9 L, Hct 36.7 L, MCV 87.2, MCH 28.3, MCHC 32.4, RDW 13.7, Plt Count 325, MPV 10.1, Neut % (Auto) 70.7, Lymph % (Auto) 18.5, [place] % (Auto) 8.6, Eos % (Auto) 1.5, Baso % (Auto) 0.4, Neut # (Auto) 6.7, Lymph # (Auto) 1.8, [place] # (Auto) 0.8, Eos # (Auto) 0.1, Baso # (Auto) 0.0, Sodium 138, Potassium 4.0, Chloride 108 H, Carbon Dioxide 26, Anion Gap 8.0, BUN 11, Creatinine 0.60, Estimated Creat Clear 132, Estimated GFR 105, Est GFR ( Amer) 127, Glucose 115 H, Calcium 9.3, Total Bilirubin 0.3, AST 37 H, ALT 46, Alkaline Phosphatase 71, Total Protein 7.0, Albumin 3.9, Globulin 3.1, Albumin/Globulin Ratio 1.3 Orders (Tests/Meds): ED MEDICATIONS Discontinued Medications Generic Name Dose Route Start Last Admin Trade Name Freq PRN Reason Stop Dose Admin Diphenhydramine HCl 50 mg 08/10/24 12:56 08/10/24 13:26 Diphenhydramine 50mg/Ml Vial IV 09/09/24 12:55 50 mg NEEDED PRN Administration Allergic Reaction Sodium Chloride 1,000 mls @ 999 mls/hr 08/10/24 12:53 08/10/24 13:24 Sod Chlor 0.9% 1000ml Bag IV 08/10/24 13:53 999 mls/hr .Q1H1M ONE Administration Metronidazole 500 mg in 100 mls @ 100 mls/hr 08/10/24 12:53 08/10/24 13:26 Flagyl 500mg/100ml Ivpb IV 08/10/24 13:52 100 mls/hr ONCE ONE Administration Vancomycin/PEG/NADA/Lysine/Water 1.25 gm in 250 mls @ 125 mls/hr 08/10/24 13:15 08/10/24 13:46 Vancomycin 1.25gm/250ml (Peg) Premix IV 08/10/24 15:14 125 mls/hr ONCE ONE Administration Iopamidol 75 ml 08/10/24 13:58 08/10/24 13:58 Iopamidol-370 (76%);100ml Bottle IV 08/10/24 13:59 75 ml ONCE ONE Administration Ketorolac Tromethamine 30 mg 08/10/24 15:20 08/10/24 15:35 Ketorolac 30mg/Ml Vial IV 08/10/24 15:21 30 mg ONCE ONE Administration Sodium Chloride 10 ml 08/10/24 13:58 08/10/24 13:58 Sodium Chloride 0.9% 10ml Syr (Rad Only) IV 08/10/24 13:59 10 ml ONCE ONE Administration ORDERS Category Date Time Status CT facial bones w con Stat Cat Scan 08/10/24 12:[address] soft tissue neck w con Stat Cat Scan 08/10/24 12:12 Completed CBC w/Auto Diff [Complete Blood Count Auto Diff] Stat Lab 08/10/24 13:15 Completed CMP [Comprehensive Metabolic Panel] Stat Lab 08/10/24 13:15 Completed Medical Decision Narrative: 54-year-old female presenting with concern for facial cellulitis. She states that she has been on antibiotics on and off for the past month including Augmentin, clindamycin, Flagyl for dental infections. States that she has had multiple teeth extracted. Came in today because she is now having swelling underneath her chin. She states that for 5 days prior to this, she had abscess on the right side of her jaw open, drained, and malodorous discharge was expressed. Patient also states that she is not having significant pain underneath her jaw. No tongue elevation, changes in voice, difficulty breathing, pain or changes with range of motion of her neck, nausea, vomiting, fevers, chills, etc.. History was obtained via conversation with patient. On arrival, patient hemodynamically stable, alert, oriented x4, appropriate, GCS 15, moving all extremities spontaneously, pupils equal and reactive to light. Full physical exam performed and significant for submental induration with associated erythema and significant tenderness. No stridor, range of motion of neck difficulties, voice changes, intraoral abnormalities. No elevation of the tongue. Differential includes cellulitis, abscess, deep space infection, among others. Patient given Toradol, fluids, empiric antibiotics. Workup initiated and independently interpreted. No leukocytosis. Nonactionable chemistry. On independent interpretation of CT scan of the face and neck with contrast, patient has dental abscess, what appears to be submental cellulitis without abscess. Otolaryngology was formally consulted here. Dr. Prater saw patient in the emergency department. Recommended transfer for IV antibiotics, since patient is immune compromised on long-acting injectable for psoriatic arthritis as well as failed multiple outpatient antibiotics. was contacted and case was discussed at length with Dr. Wilson, wanted to talk to oral surgery prior to final disposition. OMFS recommended transfer for likely I&D and evaluation. Because patient high risk for clinical decompensation if discharged, deemed appropriate for transfer and inpatient admission. Results were relayed to patient who voiced understanding and patient was agreeable to transfer, inpatient admission, and management. Patient was graciously accepted and transferred to [facility] for further definitive management, under Dr. Wilson.. Lead Portfolio Manager disclaimer Much of this encounter note is an electronic philatelic consultant spoken language to printed text. Electronic philatelic consultant of the spoken language may permit errors. Although I have reviewed the note, some errors may still exist. Critical Care <Paul Rodas MD - Last Filed: 08/10/24 15:46> Critical Care Time Critical Care Time: Yes (ID) Attestation: On 08/10/24, the high probability of a clinically significant, sudden or life threatening deterioration of the following system(s) required my full and direct attention, intervention and personal management. The time I documented below is in addition to time spent performing reported procedures but includes the following listed in this critical care notation. Total Time Total Critical Care Time: 35
--- NOTE | 2024-08-10 12:12 | CT_ITS ---
FINAL REPORT TECHNIQUE: Thin section axial CT images with coronal and sagittal reformats were performed after the administration of IV contrast. This study was performed with techniques to keep radiation doses as low as reasonably achievable (ALARA). Individualized dose reduction techniques using automated exposure control or adjustment of mA and/or kV according to the patient''s size were employed. CLINICAL HISTORY: rule out abscess chin COMPARISON: None FINDINGS: Asymmetrically more numerous submandibular lymph nodes xwfao-uhuaras-czcl-left measuring up to 1.2 cm. Inflammation is seen adjacent to the right mandible. No discrete abscess identified. IMPRESSION: Inflammation adjacent to the right mandible. No discrete abscess identified. Reviewed, Interpreted and Dictated by Ezequiel Bateman MD Transcribed by Rhona De Jesus Authenticated and [facility]
--- OUTSIDE RECORDS SUMMARY | 2024-08-10 12:12 | XMS_ITS | Continuity of Care Document ---
Author Organization [facility] [address] Address [address] [place] [address] Care Team Providers Care Manager Product Management Name Role Phone ANALI HANCOCK Referring Provider ANALI HANCOCK Primary Care Provider [phone] Assessment No assessment recorded. Plan of Treatment Reminders Order Date Submit Date Provider Last Modified By Organization Details Last Modified Time Details Appointments None record ed. Lab None record ed. Referral None record ed. Procedures None record ed. Surgeries None record ed. Imaging None record ed. Medication Orders None record ed. Patient TargetsNo targets recorded. Patient Instructions Encounter Date Encounter Id Patient Instructions Last Modified By Organization Details Last Modified Time 07/14/2024 [id number] patient has right-sided mild nasal septal deviation. There is no evidence of polyps or obstruction of the OMCs. I have recommended a nasal cone to be used in the right nasal cavity at nighttime if this is bothersome to her an information regarding were to obtain those was discussed. Follow up as needed. [email or web address] Not available 07/14/2024 11:00:32 Reason for Referral None Reported. Results Created Date Observation Date Name Description Value Unit Range Abnormal Flag Note LastModifiedBy Organization Detail LastModifiedTime 06/17/1906/16/2024 US, echoc ardio gram, trans thora cic, compl ete, w/ color flow [facility] [address] [place] [address] Phone: Fax: Name: CATHERINE SONG MS Exam Date: 025 : 1969 Age 54 years Gender : F Access ion: [id number] Physic hcacorta: ASHLIE BARRIOS Facili ty: [facility] Facili ty HSV: Outpat ient Exam: ECHOCA RDIOGR AM Conclu sions: 1. Normal LV size and functi on. 2. Estima carolann left ventri cular ejecti on fracti on is 55-60% . 3. Mild concen tric left ventri cular hypert rophy. 4. There is no signif icant valvul ar stenos is or regurg itatio n by Dopple r flow analys is. Findin gs: Left Ventri klaudia:Mi ld concen tric left ventri cular hypert rophy. No left ventri cular thromb us noted. Normal LV size and functi on. Right Ventri klaudia:No right ventri cular thromb us is noted. Left Atrium :Renate l left atrial size. Right Atrium :Renate l right atrial size. Mitral Valve: Normal mitral valve struct ure. Tricus pid Valve: The tricus pid valve is poorly seen. Aortic Valve: Normal aortic valve struct ure. Pulmon ic Valve: The pulmon ic valve is poorly seen. Aorta: The aortic root is normal . Pulmon lyndon Artery :The pulmon lyndon artery is not well visual ized. Perica rdium: Normal perica rdium. There is no signif icant perica rdial effusi on. Electr onical ly signed PATRICK GAMEZ MD 06/15/24 2:24 PM Study Data 2D Measur ements LVIDd: 4.81 (4.2-5 .9) cm LVIDs: 4.09 (2.1-4 .0) cm IVSDd: 1.33 (0.6-1 .0) cm IVSDs: 0.99 (0.7-1 .1) cm LVPWd: 1.25 (0.6-1 .0) cm LVPWs: 0.94 (0.9-1 .4) cm Aortic Root:2 .64 (2.0-3 .7) cm LA/AR Ratio: 1.27 Simpso n's EF:47. 85 % FS:5.9 8 (25-43 ) % SV:11. 57 (70-10 0) ml SI:6.5 6 EDV:84 .67 (67-15 5) ml EDV Index: 48.01 (35-75 ) ml/m2 ESV:73 .79 (22-58 ) ml ESV Index: 41.84 (12-30 ) ml/m2 LA:3.3 6 (3.0-4 .0) cm LV Mass:1 71 (88-22 4) g LV Mass index: 96.96 (49-11 5) g/m2 LVOT Diam:2 .03 (1.8-2 .4) cm M-MODE Measur ements LV Mass:2 90 (88-22 4) g LV Mass Index: 164.43 (49-11 5) g/m2 EPSS:0 .54 cm Mitral Valve Mitral P.6 7 mmHg Peak E Grad:2 .82 mmHg Peak A Grad:3 .1 mmHg Legall y authen ticate d by BUDDY Ng MD 06-16 07:59: 02 E/A Ratio: 0.95 (.75-1 .5) E/e' Latera l:9.33 (<=8) E/e' Medial :6 (<=8) MVA by PHT:2. 24 (4-6) cm2 Tricus pid Valve Peak Grad:6 .97 (<=2) mmHg TR Peak Grad:6 .45 mmHg TAPSE: 1.52 (>=1.6 ) cm Aortic Valve Peak Grad:6 .35 (<=16) mmHg LVOT P.8 9 mmHg Pulmon ic Valve Peak Grad:4 .16 (<=3) mmHg Report for CATHERINE SONG MS [id number] on 5 Dictat ed By: PATRICK BENOIT Transc ribed By: JACQUELIN VILLAGOMEZ Transc ribed On: 06/17/19 7:51 AM Electr onical ly signed by: PATRICK BENOIT 06/17/19 Thank you for referr CATHERINE Bocanegra MS to [facility]. Legall y authen ticate d by BUDDY Ng MD 06-16 07:59: 02 CC'ed Logic: Orderi ng Provid er: BUDDY Ng Attend ing Provid er: SOPHIE DAILEY Referr ing Provid er: SOPHIE DAILEY Admitt ing Provid er: SOPHIE DAILEY [facility] [address] , [place], [address], 07/01/2024 09:58:01 07/15/19 25 04/22/2022 CT, sinus es, w/o contr ast No observ ation record ed. Not Available 09:13:54 Result Notes None recorded. Procedures Surgical History Date Name Laterality Status Provider Name and Address Organization Details Recorded Time 07/15/19 25 Nasal Endoscopy completed Yana Rebollar MD [address] [facility], [place], [address], [place] [facility] [place] [facility] [place] 07/14/2024 10:53:46 07/25/19 23 completed Callie Karissa [place] [facility] [place] [facility] [place] 07/14/2024 09:01:15 03/23/19 22 Date of Last Colonoscopy completed Callie Karissa [place] [facility] [place] [facility] [place] 07/14/2024 09:01:15 03/17/19 22 Colonoscopy completed Callie Karissa [place] [facility] [place] [facility] [place] 07/14/2024 09:02:23 12/24/19 20 Date of Last Pap Smear completed Callie Karissa [place] [facility] [place] [facility] [place] 07/14/2024 09:01:15 03/17/19 09 Sinus Surgery completed Callie Karissa [place] [facility] [place] [facility] [place] 07/14/2024 09:02:23 03/17/19 08 Other completed Callie Karissa [place] [facility] [place] [facility] [place] 07/14/2024 09:02:23 03/17/18 89 Other completed Callie Karissa [place] [facility] [place] [facility] [place] 07/14/2024 09:02:23 03/17/18 85 Appendectomy completed Callie Karissa [place] [facility] [place] [facility] [place] 07/14/2024 09:02:23 appendectomy completed Callie Karissa [place] [facility] [place] [facility] [place] 07/14/2024 08:55:30 nasal septoplasty completed Callie Karissa [place] [facility] [place] [facility] [place] 07/14/2024 08:55:45 Imaging Results None recorded. Procedure Notes None recorded. Medical Equipment None Reported. Allergies Allergen ID Allergen Name Allergen Category Reaction Reaction Severity Criticality Documentation Date Start Date Code Code System Note Provider Name and Address Organization Details Recorded Time 785325 Levaquin medicatio n hives severe Not available 07/14/2024 29034 2 RxNorm Callie Karissa null, [place] [facility] & [place] 5 09:01:09 [id number] codeine medicatio n hives severe Not available 07/14/2024 2670 RxNorm Callie Karissa null, [place] [facility] & [place] 5 09:01:09 [id number] Zyban medicatio n hives Not available [facility] 07/14/2024 57107 8 RxNorm Callie Karissa null, [place] [facility] & [place] 5 08:56:43 [id number] Augmentin medicatio n hives severe Not available 07/14/2024 05373 2 RxNorm Callie Karissa [place], [place] [facility] [place] [facility] [place] 5 09:01:09 405690 albuterol medicatio n hives moderate Not available 07/14/2024 435 RxNorm Callie Karissa [place], [place] [facility] [place] [facility] [place] 5 09:01:08 [id number] Chlorasep tic medicatio n hives severe Not available 07/14/2024 25269 RxNorm Callie Karissa [place], [place] [facility] [place] [facility] [place] 5 09:01:08 [id number] amoxicill in medicatio n hives moderate Not available 07/14/2024 723 RxNorm Callie Karissa null, [place] [facility] [place] [facility] [place] 5 09:01:08 245688 bupropion Not available hives moderate Not available 07/14/2024 44490 RxNorm Callie wen, [place] - [facility] & [place] 5 09:01:08 287278 Keflex medicatio n hives severe Not available 07/14/2024 83665 7 RxNorm Callie wen, [place] - [facility] & [place] 5 09:01:08 Medications Name Sig Start Date Stop Date Status Note LastModified by Organization Details LastModified Time atorvastati n 40 mg tablet TAKE 1 TABLET BY MOUTH EVERY DAY FOR 30 DAYS 07/05 completed Not Available Not Available Not Available methocarbam ol 500 mg tablet TAKE 1-2 TABLETS BY MOUTH 2 TIMES A DAY NEEDED FOR SPASM 10 DAYS 07/14 completed Not Available Not Available Not Available atorvastati n 80 mg tablet TAKE 1 TABLET BY MOUTH EVERY DAY FOR 90 DAYS 2024 active Not Available Not Available Not Avai lable venlafaxine ER 75 mg capsule,ext ended release 24 hr TAKE 1 CAPSULE BY MOUTH EVERY DAY FOR 30 DAYS 07/14 completed Not Available Not Available Not Available clindamycin HCl 300 mg capsule TAKE ONE CAPSULE 3 TIMES A DAY UNTIL GONE. 07/14 completed Not Available Not Available Not Available triazolam 0.25 mg tablet TAKE 1 TABLET AT BEDTIME NIGHT BEFORE APPT, 1 TABLET 1 HOUR BEFORE APPT. BRING 3RD TABLET TO APPT active Not Available Not Available No t Available trazodone 50 mg tablet 2 TABLETS ORALLY ONCE A DAY AT NIGHT 30 DAYS active Not Available Not Available No t Available cetirizine 10 mg tablet TAKE 1 TABLET BY MOUTH EVERY DAY FOR 90 DAYS active Not Available Not Available No t Available ibuprofen 800 mg tablet TAKE 1 TABLET BY MOUTH EVERY 6 TO 8 HOURS NEEDED 07/14 completed Not Available Not Available Not Available nicotine (polacrilex ) 2 mg gum CHEW [address] IT IN CHEEK EVERY 4 HOURS NEEDED FOR NICOTINE CRAVINGS active Not Available Not Available No t Available ketotifen 0.025 % (0.035 %) eye drops INSTILL 1 DROP INTO BOTH EYES TWICE DAILY active Not Available Not Available No t Available hydrocodone 5 mg-acetamin ophen 325 mg tablet TAKE 1 TABLET BY MOUTH EVERY 4 TO 6 HOURS NEEDED FOR PAIN active Not Available Not Available No t Available prednisone 20 mg tablet TAKE 2 TABLETS BY MOUTH EVERY DAY FOR 5 DAYS 07/14 completed Not Available Not Available Not Available venlafaxine ER 150 mg capsule,ext ended release 24 hr TAKE 1 CAPSULE BY MOUTH EVERY DAY FOR 30 DAYS active Not Available Not Available No t Available amlodipine 5 mg tablet TAKE 1 TABLET BY MOUTH EVERY DAY 07/05 completed Not Available Not Available Not Available valsartan 80 mg-hydrochl orothiazide 12.5 mg tablet TAKE 1 TABLET BY MOUTH EVERY DAY FOR 30 DAYS active Not Available Not Available No t Available amlodipine 10 mg tablet TAKE 1 TABLET BY MOUTH EVERY DAY 07/05 completed Not Available Not Available Not Available oseltamivir 75 mg capsule TAKE 1 CAPSULE BY MOUTH EVERY DAY FOR 10 DAYS 07/05 completed Not Available Not Available Not Available halobetasol propionate 0.05 % topical ointment APPLY 1 EZRA APPLIED TOPICALLY 2 TIMES A DAY active Not Available Not Available No t Available nicotine 21 mg/24 hr daily transdermal patch 1 PATCH TRANSDERM ALLY ONCE A DAY active Not Available Not Available No t Available omeprazole 20 mg capsule,del ayed release TAKE 1 CAPSULE BY MOUTH EVERY DAY FOR 30 DAYS active Not Available Not Available No t Available folic acid 1 mg tablet TAKE 1 TABLET BY MOUTH EVERY DAY FOR 30 DAYS active Not Available Not Available No t Available montelukast 10 mg tablet TAKE 1 TABLET BY MOUTH EVERY DAY active Not Available Not Available No t Available ergocalcife rol (vitamin D2) 1,250 mcg (50,000 unit) capsule TAKE 1 CAPSULE BY MOUTH 2 TIMES A WEEK 07/14 completed Not Available Not Available Not Available azelastine 137 mcg (0.1 %) nasal spray 2 SPRAY INTRANASA LLY AT BEDTIME NIGHTLY FOR 90 DAYS ADMINISTE R INTO EACH NOSTRIL active Not Available Not Available No t Available ibuprofen 600 mg tablet TAKE ONE TABLET BY MOUTH THREE TIMES A DAY NEEDED FOR JOINT PAIN active Not Available Not Available No t Available methylpredn isolone 4 mg tablets in a dose pack TAKE 6 TABLETS ON DAY 1 DIRECTED ON PACKAGE AND DECREASE BY 1 TAB EACH DAY FOR A TOTAL OF 6 DAYS 07/14 completed Not Available Not Available Not Available celecoxib 100 mg capsule TAKE 1 CAPSULE BY MOUTH TWICE A DAY NEEDED active Not Available Not Available No t Available fluticasone propionate 50 mcg/actuati on nasal spray,suspe nsion USE 2 SPRAYS IN EACH NOSTRIL ONCE DAILY active Not Available Not Available No t Available diclofenac 1 % topical gel APPLY TOPICALLY 4 TIMES A DAY DIRECTED active Not Available Not Available No t Available Combivent Respimat 20 mcg-100 mcg/actuati on solution for inhalation 1 PUFF INHALED EVERY 6 HOURS NEEDED FOR SHORTNESS OF BREATH OR WHEEZING FOR 90 DAYS active Not Available Not Available No t Available Stiolto Respimat 2.5 mcg-2.5 mcg/actuati on solution for inhalation INHALE 2 PUFFS DAILY FOR 90 DAYS active Not Available Not Available No t Available Ajovy Syringe 225 mg/1.5 mL subcutaneou s INJECT SUBCUTANE OUSLY ONCE A MONTH 30 DAYS active Not Available Not Available No t Available Nurtec ODT 75 mg disintegrat ing tablet TAKE 1 TABLET BY MOUTH EVERY DAY NEEDED FOR MIGRAINES active Not Available Not Available No t Available Vitals Date Recorded Body weight Body mass index (BMI) Body height Body temperature Provider Name and Address Organization Details Last Updated DateTime 07/14/2024 90720.07 g 34 kg/m2 152.4 cm 97.2 [degF] Callie Hancock [facility] & [place] 07/14/2024 09:01:02 Social History Question Answer Notes LastModified by [employer] Details LastModified Time Tobacco Smoking Status Former Smoker Callie Hancock [facility], [facility] & [place] 07/14/2024 09:01:26 Do You Have An Advance Directive? No Information not available 07/14/2024 Are You Blind Or Do You Have Difficulty Seeing? No Information not available 07/14/2024 What Was The Date Of Your Most Recent Tobacco Screening? 07/13/2024 Information not available 07/14/2024 Are You Passively Exposed To Smoke? No Information not available 07/14/2024 How Much Tobacco Do You Smoke? No Information not available 07/14/2024 How Many Years Have You Smoked Tobacco? 30 Information not available 07/14/2024 Sex: Unknown Functional Status Question Answer Note LastModified by [employer] ion Details LastModified Time Do you use any illicit or recreational drugs? No Information not available 07/14/2024 What is your level of alcohol consumption? Occasional Information not available 07/14/2024 Do you or have you ever used smokeless tobacco? Never used smokeless tobacco Information not available 07/14/2024 What is your exercise level? Occasional Information not available 07/14/2024 Mental Status Question Answer Note LastModified by Organization D etails LastModified Time Do you feel stressed (tense, restless, nervous, or anxious, or unable to sleep at night)? [id number] Information not available 07/14/2024 Family History Relationship Description Onset Age of this Age Resolved Age Notes LastModified by Organization Details LastModified Time Mother Disorder of endocrine system pt. added direct ly (07/13) [email or web address] Not available 07/13/2024 13:56:48 Mother Headache pt. added direct ly (07/13) [email or web address] Not available 07/13/2024 13:57:07 Mother Hypercholest erolemia pt. added direct ly (07/13) [email or web address] Not available 07/13/2024 13:57:49 Brother Disorder of endocrine system pt. added direct ly (07/13) [email or web address] Not available 07/13/2024 13:56:48 Brother Hypertensive disorder pt. added direct ly (07/13) [email or web address] Not available 07/13/2024 13:58:03 Brother Kidney disease pt. added direct ly (07/13) [email or web address] Not available 07/13/2024 13:58:35 Maternal Aunt Disorder of endocrine system pt. added direct ly (07/13) [email or web address] Not available 07/13/2024 13:56:48 Maternal Aunt Heart disease pt. added direct ly (07/13) [email or web address] Not available 07/13/2024 13:57:36 Maternal Uncle Disorder of endocrine system pt. added direct ly (07/13) [email or web address] Not available 07/13/2024 13:56:48 Maternal Grandfather Heart disease pt. added direct ly (07/13) [email or web address] Not available 07/13/2024 13:57:36 Father Hypercholest erolemia pt. added direct ly (07/13) [email or web address] Not available 07/13/2024 13:57:49 Medical History Condition Response Other Y Migraines Y COPD Y Osteoporosis/Osteopenia Y Autoimmune disease Y Arthritis Y Acid Reflux (GERD) Y Reflux/GERD Y High Cholesterol Y Rheumatoid Arthritis Y Headaches Y Hypertension Y Gynecological History Statement/Question Response Menses Monthly N Date of Last Pap Smear 12/24/2019 Date of Last Colonoscopy 03/23/2021 07/24/2022 Sexually Active? N Obstetrics History GPAL:G 0 P 0 0 0 0 Past Encounters Encounter ID Performer Location Encounter Start Date Encounter Closed Date Diagnosis/Indication Diagnosis SNOMED-CT Code Diagnosis ICD10 Code Diagnosis Note [id number] Ynaa Rebollar MD [facility] [place] [address] [place] [address] 07/14/2024 08:49:20 07/14/2024 09:42:45 Nasal congestion 72875453 R09.81 History of nasal sinus surgery 7947865321 80447 Z98.890 Health Concerns Section Related Observation LastModified by Organization Detai ls LastModified Time None Recorded Concern Status LastModified by Organization Details LastModified Time None Recorded Payers Encounter Date Sequence Insurance Name Policy Number Policy Martinez Covered Member ID Martinez Member ID Guarantor Name 07/14/2024 1 [facility] (MEDICAID HMO) Catherine Herr [id number] Catherine Herr Notes Date Note Type Note Provider Name and Address Organization Details Recorded Time 07/14/2024 text/html 07/14/24-Patient is here for right side nasal congestion. This is mostly at nightime when she is trying to fall asleep. She reports that it does not wake her up at night. She has not had a recent sinus infection. Patient has difficulty breathing from the right side at night only. Patient saw Dr García and had deviated septum surgery in [address] Prater at [facility] and she had a CT of sinus and was told she had a cyst on her sinuses but it was nothing he would do surgery on .Patient is wanting a second opinion. Patient uses Flonase and Montelukast, azelastine.Lane woo states she has been on these for a couple years. She was allergy tested at [facility] in [place] but allergy injections were not recommended. CT scan of the sinus from 2022 was available for my review. Yana Rebollar MD [address], [place], [address], [facility] - [place] & [place] 07/14/2024 11:01:23 OBGyn Episode No OBEpisode recorded.
--- OUTSIDE RECORDS SUMMARY | 2024-08-10 12:12 | XMS_ITS | Continuity of Care Document ---
Author Organization [facility] Phone Care Team Providers Care Digital Sales Planner Name Role Phone TYRA RAMOS Admitting ANALI BAIRD Primary Care TYRA RAMOS Primary Attending TYRA RAMOS Unavailable ALLERGIES AND ADVERSE REACTIONS ALLERGIES AND ADVERSE REACTIONS Code System Allergy Substance Adverse Reaction Date Reaction (Severity) Comment [place] [id number] RXNorm LEVAQUIN Hives Hives active Patient [id number] on December 19, 2021 12:39:02 PM UTC 2231 RXNorm KEFLEX Hives Hives active Patient [id number] o n December 19, 2021 12:39:02 PM UTC 2670 RXNorm CODEINE Hives Hives active Patient [id number] on December 19, 2021 12:39:02 PM UTC 23048 RXNorm ZYBAN Hives Hives active Patient [id number] o n December 19, 2021 12:39:02 PM UTC RESULTS Patient: ALICE NEAL Date of : 1970 8 LABORATORY RESULTS Information is not available LABORATORY NARRATIVE RESULTS Information is not available RADIOLOGY RESULTS ORDER 100: PELVIS 1 TO 2V (L OINC: [id number]) ORDER DATE: July 21, 2024 2:48:00 PM [place] PERFORMING LAB: [address] [id number] Final Result Date: July 21 2:58:[address] [place] [address] Name: CATHERINE JENKINS Exam Date: 07/21/2024 : 1970 Age 54 years Gender: F Physician: TYRA RAMOS Facility: [facility] Facility HSV: Outpatient Exam: PELVIS 1 TO 2V EXAM DESCRIPTION: LUMBAR 2 TO 3V (accession [id number]), PELVIS 1 TO 2V (accession [id number]) CLINICAL HISTORY: 54 years Female, standing TECHNIQUE: Conventional radiography. COMPARISON: None available. FINDINGS: A frontal view of the pelvis with a frontal view of the left hip and a frog-leg lateral view were obtained; frontal and lateral views of the lumbar spine were obtained. The pelvis shows no acute abnormality. There are degenerative changes in the hips. No aggressive skeletal lesion is identified. Tubal ligation clips are evident. There are 5 nonrib-bearing lumbar-type vertebral bodies. Vertebral body heights are maintained, and the spine is well aligned. There are minimal discogenic endplate changes. An L5 pars interarticularis defect is evident with trace anterolisthesis of L5 on S1.. Vascular calcifications are present. IMPRESSION: 1. No acute abnormality in the pelvis with degenerative changes in the hips. 2. Bilateral L5 pars interarticularis defects with trace anterolisthesis of L5 on S1. 3. Mild degenerative changes throughout the spine. Electronically signed by: Javier Sharpe MD 07/22/2024 10:47 AM EDT RP Dictated By: Javier Sharpe Transcribed By: Transcribed On: 07/21/2024 10:58 AM Electronically signed by: Javier Sharpe 07/21/2024 Thank you for referring CATHERINE JENKINS to [facility]. Legally authenticated by POLINA MCCLURE MD 2024-07-21 10:58:33 ORDER 200: LUMBAR 2 TO 3V (L OINC: [id number]) ORDER DATE: July 21, 2024 2:48:00 PM [facility] PERFORMING LAB: [address] [id number] Final Result Date: July 21 2:58:[address] [place] [address] Name: CATHERINE JENKINS Exam Date: 07/21/2024 : 1970 Age 54 years Gender: F Physician: TYRA RAMOS Facility: [facility] Facility HSV: Outpatient Exam: LUMBAR 2 TO 3V EXAM DESCRIPTION: LUMBAR 2 TO 3V (accession [id number]), PELVIS 1 TO 2V (accession [id number]) CLINICAL HISTORY: 54 years Female, standing TECHNIQUE: Conventional radiography. COMPARISON: None available. FINDINGS: A frontal view of the pelvis with a frontal view of the left hip and a frog-leg lateral view were obtained; frontal and lateral views of the lumbar spine were obtained. The pelvis shows no acute abnormality. There are degenerative changes in the hips. No aggressive skeletal lesion is identified. Tubal ligation clips are evident. There are 5 nonrib-bearing lumbar-type vertebral bodies. Vertebral body heights are maintained, and the spine is well aligned. There are minimal discogenic endplate changes. An L5 pars interarticularis defect is evident with trace anterolisthesis of L5 on S1.. Vascular calcifications are present. IMPRESSION: 1. No acute abnormality in the pelvis with degenerative changes in the hips. 2. Bilateral L5 pars interarticularis defects with trace anterolisthesis of L5 on S1. 3. Mild degenerative changes throughout the spine. Electronically signed by: Javier Sharpe MD 07/22/2024 10:47 AM EDT RP Dictated By: Javier Sharpe Transcribed By: Transcribed On: 07/21/2024 10:58 AM Electronically signed by: Javier Sharpe 07/21/2024 Thank you for referring CATHERINE JENKINS to [facility]. Legally authenticated by POLINA MCCLURE MD 2024-07-21 10:58:40 PATHOLOGY NARRATIVE RESULTS Information is not available MICROBIOLOGY RESULTS No Micro Labs/Results Exist for Patient BLOOD ADMIN RESULTS Information is not available MEDICATIONS HOME MEDICATIONS Status RXNORM NDC Medication Dose Route Frequency Dates Comments Reported By Updated By Drug Treatment Unknown DISCHARGE MEDICATIONS Status RXNORM NDC Medication Dose Route Frequency Dates Comments Physician Updated By No Discharge Medication Info rmation Available INPATIENT MEDICATIONS Status RXNORM NDC Medication Dose Route Frequency Rat e Quantity Dates Comments Physician Updated By No Inpatient Medication Info rmation Available SOCIAL HISTORY SOCIAL HISTORY SNOMED-CT Social History Element Description Effective Dates Offered Cessation Comment UpdatedBy [id number] Smoking Status Unknown If Ever Smoked SOCIAL HISTORY - Gender Sex: Female SOCIAL HISTORY - Status : status i nformation is not available Intention in Next Year: intention information is not available SOCIAL HISTORY - Sexual Behavior Sexual Orientation Gender Identity SNOMED-CT Description SNO MED -CT Description Activity Level No of Partners Partner Type UpdatedBy Information is not available HEALTH CONCERNS Problems Concern Status Health Concern problem infor mation not available. Smoking Status Status Years Used Consumed packs p er day Health Concern smoking histo ry information not available. Family History Concern Status Health Concern family histor y information not available. ENCOUNTERS ENCOUNTER INFORMATION Reason for Visit M54.50 Admission July 21, 2024 2:39:[address] [address] Discharge July 21, 2024 2:39:00 PM [facility] DISCH ARGED TO HOME OR SELF CARE ENCOUNTER DIAGNOSES Notes information is not jayjay ilable. Code System Diagnosis Onset Date Diagnosis information is not available. ABSTRACT DIAGNOSES Code System Diagnosis Updated By M54.50 ICD10 LOW BACK PAIN, UNSPECIFIED I [id number] on July 23, 2024 9:54:21 AM [facility] M25.552 ICD10 PAIN IN LEFT HIP [id number] on July 23, 2024 9:54:21 AM [facility] M47.816 ICD10 SPONDYLOSIS WITH OUT MYELOPATHY OR RADICULOPATHY, LUMBAR REGION [id number] on July 23, 2024 9:54:21 AM [facility] M43.17 ICD10 SPONDYLOLISTHESIS, LUMBOSACR AL REGION [id number] on July 23, 2024 9:54:21 AM [facility] M43.8X7 ICD10 OTHER SPECIFIED DEFORMING DORSOPATHIES, LUMBOSACRAL REGION [id number] on July 23, 2024 9:54:21 AM [facility] M16.0 ICD10 BILATERAL PRIMARY OSTEOARTHR ITIS OF HIP [id number] on July 23, 2024 9:54:21 AM [facility] M54.50 ICD10 LOW BACK PAIN, UNSPECIFIED I [id number] on July 23, 2024 9:54:21 AM [facility] M25.552 ICD10 PAIN IN LEFT HIP [id number] on July 23, 2024 9:54:21 AM [facility] CARE TEAM Care Digital Sales Planner Role TYRA RAMOS Admitting NAALI BAIRD Primary Care TYRA RAMOS Primary Attending TYRA RAMOS Referring CARE TEAM CARE carpenter helper hardwood flooring Role on Team Status Start Date End Date Update d By OLI Crain APRN PCP normal July 21, 2024 4:00:00 AM UT July 21, 2024 2:39:00 PM UT [id number] on July 21, 2024 2:40:25 PM UT RICHARD MARY MD Referring normal July 21, 2024 4:00:00 AM [facility] July 21, 2024 2:39:00 PM [facility] [id number] on July 21, 2024 2:40:25 PM [facility] RICHARD MARY MD Attending normal July 21, 2024 4:00:00 AM [facility] July 21, 2024 2:39:00 PM [facility] [id number] on July 21, 2024 2:40:25 PM [facility] RICHARD MARY MD Admitting normal July 21, 2024 4:00:00 AM [facility] July 21, 2024 2:39:00 PM [facility] [id number] on July 21, 2024 2:40:25 PM [facility]
--- OUTSIDE RECORDS SUMMARY | 2024-08-10 12:12 | XMS_ITS | Data Portability ---
[facility] Organization [place] [facility] Address [address] [place] [id number] Care Team Providers Care Shower Doors And Panels Fabricator Name Role Phone OLI, ANALI Referring Provider ANALI HANCOCK Primary Care Provider Assessment No assessment recorded. Plan of Treatment Reminders Order Date Submit Date Provider Last Modified By Organization Details Last Modified Time Details Appointments None record ed. Lab None record ed. Referral None record ed. Procedures None record ed. Surgeries None record ed. Imaging None record ed. Medication Orders None record ed. Patient TargetsNo targets recorded. Patient InstructionsNo instructions recorded. Reason for Referral None Reported. Results Created Date Observation Date Name Description Value Unit Range Abnormal Flag Note LastModifiedBy Organization Detail LastModifiedTime 06/17/1906/16/2024 US, echoc ardio gram, trans thora cic, compl ete, w/ color flow [facility] [address] [place] [address] Phone: Fax: Name: CATHERINE SONG MS Exam Date: 025 : 1969 Age 54 years Gender : F Access ion: [id number] Physic chacorta: ASHLIE BARRIOSi ty: [facility] Facili ty HSV: Outpat ient Exam: [...] (<=3) mmHg Report for CATHERINE SONG MS [id number] on 5 Dictat ed By: PATRICK BENOIT Transc ribed By: JACQUELIN VILLAGOMEZ Transc ribed On: 06/17/19 7:51 AM Electr onical ly signed by: PATRICK BENOIT 06/17/19 Thank you for referr sabra SONG CATHERINE OLVERA to [facility]. Legall y authen ticate d by BUDDY Ng MD 06-16 07:59: 02 CC'ed Logic: Orderi ng Provid er: BUDDY Ng Attend ing Provid er: SOPHIE DAILEY Referr ing Provid er: SOPHIE Summers ing Provid er: SOPHIE DAILEY [facility] [address], [place], [address], 07/01/2024 09:58:01 07/15/19 25 04/22/2022 CT, sinus es, w/o contr ast No observ ation record ed. [id number] Not Available 09:13:54 Result Notes None recorded. Procedures Surgical History Date Name Laterality Status Provider Name and Address Organization Details Recorded Time 07/15/19 25 Nasal Endoscopy completed Yana Rebollar MD [address] [facility], [place], [address], [place] [facility] [place] [facility] [place] 07/14/2024 10:53:46 07/25/19 23 completed Callie Oli [place] - [facility] [place] [facility] [place] 07/14/2024 09:01:15 03/23/19 22 Date of Last Colonoscopy completed Callie Oli [place] [facility] [place] [facility] [place] 07/14/2024 09:01:15 03/17/19 22 Colonoscopy completed Callie Oli [place] [facility] [place] 07/14/2024 09:02:23 12/24/19 20 Date of Last Pap Smear completed Callie Oli [place] [facility] [place] 07/14/2024 09:01:15 03/17/19 09 Sinus Surgery completed Callie Oli [place] [facility] [place] [facility] [place] 07/14/2024 09:02:23 03/17/19 08 Other completed Callie Oli [place] [facility] [place] [facility] [place] 07/14/2024 09:02:23 03/17/18 89 Other completed Callie Oli [place] [facility] [place] 07/14/2024 09:02:23 03/17/18 85 Appendectomy [place] Callie Oli [place] [facility] [place] 07/14/2024 09:02:23 appendectomy completed Clalie Oli [place] [facility] [place] [facility] [place] 07/14/2024 08:55:30 nasal septoplasty completed Callie Oli [place] [facility] [place] [facility] [place] 07/14/2024 08:55:45 Imaging Results None recorded. Procedure Notes None recorded. Medical Equipment None Reported. Allergies Allergen ID Allergen Name Allergen Category Reaction Reaction Severity Criticality Documentation Date Start Date Code Code System Note Provider Name and Address Organization Details Recorded Time 601021 Levaquin medicatio n hives severe Not available 07/14/2024 77426 2 RxNorm Callie Oli null, [place] [facility] [place] [facility] [place] 5 09:01:09 152083 codeine medicatio n hives severe Not available 07/14/2024 2670 RxNorm Callie Oli [place], [place] [facility] [place] 5 09:01:09 181632 Zyban medicatio n hives Not available high 07/14/2024 02222 8 RxNorm Callie Oli [place], [place] [facility] [place] 5 08:56:43 300332 Augmentin medicatio n hives severe Not available 07/14/2024 51801 2 RxNorm Callie Oli [place], [place] [facility] [place] [facility] [place] 5 09:01:09 994020 albuterol medicatio n hives moderate Not available 07/14/2024 435 RxNorm Callie Oli [place], [place] [facility] [place] [facility] [place] 5 09:01:08 617766 Chlorasep tic medicatio n hives severe Not available 07/14/2024 78641 RxNorm Callie Oli [place], [place] [facility] [place] 5 09:01:08 722605 amoxicill in medicatio n hives moderate Not available 07/14/2024 723 RxNorm Callie Oli [place], [place] [facility] [place] [facility] [place] 5 09:01:08 349095 bupropion Not available hives moderate Not available 07/14/2024 54928 RxNorm Callie Oli null, [place] [facility] [place] [facility] [place] 5 09:01:08 847260 Keflex medicatio n hives severe Not available 07/14/2024 27172 7 RxNorm Callie Oli [place], [place] [facility] [place] [facility] [place] 5 09:01:08 Medications Name Sig Start Date [...] Not Available Not Available No t Available [facility] ODT 75 mg disintegrat ing tablet TAKE 1 TABLET BY MOUTH EVERY DAY NEEDED FOR MIGRAINES active Not Available Not Available No t Available Vitals Date Recorded Body weight Body mass index (BMI) Body height Body temperature Provider Name and Address Organization Details Last Updated DateTime 07/14/2024 99996.07 g 34 kg/m2 152.4 cm 97.2 [degF] Callie CARRIZALES [facility] & [place] 07/14/2024 09:01:02 Social History Question Answer Notes LastModified by [employer] Details LastModified Time Tobacco Smoking Status Former Smoker Callie [facility], [facility] & [place] 07/14/2024 09:01:26 Do You Have An Advance [...] Functional Status Question Answer Note LastModified by Organizat ion Details LastModified Time Do you use [...] anxious, or unable to sleep at night)? GV85033-2 Information not available 07/14/2024 Family History Relationship [...] available 07/13/2024 13:57:49 Medical History Condition Response Autoimmune disease Y Other Y Osteoporosis/Osteopenia Y Arthritis Y Reflux/GERD Y High Cholesterol Y Acid Reflux (GERD) Y Rheumatoid Arthritis Y Migraines Y Headaches Y Hypertension Y COPD Y Gynecological History Statement/Question Response Menses Monthly N Date of Last Pap Smear 12/24/2019 Date of Last Colonoscopy 03/23/2021 07/24/2022 Sexually Active? N Obstetrics History GPAL:G 0 P 0 0 0 0 Past Encounters Encounter ID Performer Location Encounter Start Date Encounter Closed Date Diagnosis/Indication Diagnosis SNOMED-CT Code Diagnosis ICD10 Code Diagnosis Note [id number] Yana Rebollar MD [facility] [id number] [address] [facility], [place] [address] 07/14/2024 08:49:20 07/14/2024 09:42:45 Nasal congestion 68337771 R09.81 History of nasal sinus surgery 2839302492 75073 Z98.890 Health Concerns Section Related Observation LastModified by Organization Detai ls LastModified Time None Recorded Concern Status LastModified by Organization Details LastModified Time None Recorded Advance Directives Directive N: Payers Insurance Date Sequence Insurance Name Policy Number Policy Martinez Covered Member ID Martinez Member ID Guarantor Name 07/11/2024 1 [facility] (MEDICAID HMO) Catherine Herr [id number] Catherine Herr Notes Date Note Type Note [...] [address] Prater at [facility] and she had a CT of sinus and was told she had a cyst on her sinuses but it was nothing he would do surgery on .Patient is wanting a second opinion. Patient uses Flonase and Montelukast, azelastine.Lane t states she has been on these for a couple years. She was allergy tested at [facility] in [place] but allergy injections were not recommended. CT scan of the sinus from 2022 was available for my review. Yana Rebollar MD [facility], [place], [address], [facility] [place] & [place] 07/14/2024 11:01:23 OBGyn Episode No OBEpisode recorded.
[2024-08-10] MEDS: 0.9 % SODIUM CHLORIDE 1000ML 1,000 ML 999 ML IV (13:24)
[2024-08-10] MEDS: METRONIDAZ/SOD CHL 500 MG/100 ML PIGGYBACK 100 MG IV (13:26)
[2024-08-10] MEDS: diphenhydrAMINE 50MG/ML VIAL 50 MG IV (13:26)
[2024-08-10 13:30] LABS: Basophils % 0.4 % (0.1-2.0); Eosinophils # 0.1 Kmm3 (0.0-0.4); Eosinophils % 1.5 % (0.1-12.0); Hematocrit 36.7 % (37.0-47.0); Hemoglobin 11.9 g/dL (12.2-16.2); Immature Granulocytes # 0.03 10^3uL; Immature Granulocytes % 0.3 %; Lymphocytes # 1.8 K/mm3 (0.7-4.5); Lymphocytes % 18.5 % (10-50); Mean Corpuscular HGB Conc 32.4 g/dL (31.8-35.4); Mean Corpuscular Hemoglobin 28.3 pg (27.0-31.2); Mean Corpuscular Volume 87.2 fl (81-99); Mean Platelet Volume 10.1 fl (7.4-10.4); Monocytes # 0.8 K/mm3 (0.1-1.0); Monocytes % 8.6 % (1.7-9.3); Neutrophils # 6.7 K/mm3 (1.8-7.8); Neutrophils % 70.7 % (37.0-80.0); Nucleated Red Blood Cells # 0 10^3/uL; Nucleated Red Blood Cells % 0 %; Platelet Count 325 K/mm3 (142-424); Red Blood Count 4.21 M/mm3 (4.20-5.40); Red Cell Distribution Width 13.7 % (11.5-17.5); Red Cell Distribution Width-SD 43.8 fL; White Blood Count 9.5 K/mm3 (4.8-10.8)
[2024-08-10 13:39] LABS: Albumin Level 3.9 g/dl (3.5-5.0); Chloride 108 mmol/L (98-107); Sodium 138 mmol/L (136-145)
[2024-08-10 13:41] LABS: Blood Urea Nitrogen 11 mg/dl (7-17); Creatinine Clearance Estimated 132 mL/min (50-200); Estimated Glomerular Filt Rate 105 ml/min (>60); GFR (African American) 127 ML/MIN (>60)
[2024-08-10 13:42] LABS: Alanine Aminotransferase 46 U/L (12-78); Albumin/Globulin Ratio 1.3 (1.1-1.8); Alkaline Phosphatase 71 U/L (38-126); Aspartate Amino Transferase 37 U/L (14-36); Bilirubin,Total 0.3 mg/dl (0.2-1.3); Calcium 9.3 mg/dl (8.4-10.2); Carbon Dioxide 26 mmol/L (22.0-30.0); Globulin 3.1 g/dL (1.3-3.2); Glucose 115 mg/dl (74-100)
[2024-08-10] MEDS: VANCOMYCIN/WATER FOR INJ (PEG) 1.25 GM/250 ML PIGGYBACK IV (13:46)
[2024-08-10] MEDS: IOPAMIDOL-370 (76%);100ML BOTTLE 75 ML IV (13:58)
[2024-08-10] MEDS: SODIUM CHLORIDE 0.9% 10ML SYR (RAD ONLY) 10 ML IV (13:58)
--- NOTE | 2024-08-10 14:29 | PC.NURSE ---
speaking with Dr. Prater, ENT
--- NOTE | 2024-08-10 15:01 | PC.NURSE ---
calling [facility] at this time.
--- NOTE | 2024-08-10 15:15 | PC.NURSE ---
on the phone with
--- NOTE | 2024-08-10 15:22 | EXP.ENTCONS ---
History of Present Illness *Admission Date: 08/10/24 *Reason for visit:: floor of mouth swelling *History of present illness: 54-year-old female presents with an approximate 1 month history of intermittent floor of mouth and submandibular swelling associated with her lower dentition. She has been in the process of getting her teeth pulled but still has a few left ago with the oral surgeons. She states she has been on numerous rounds of oral antibiotics when her mouth will swell and then will go back down. Over the last week or so it has been more significantly swollen and had a spot come up on the right side of her mandible that opened up and drained. Over the last 48 hours she has developed continued swelling and is starting develop some throat irritation. She denies any difficulty breathing. It does hurt to swallow but she is managing to get things down fine. No difficulties laying flat. NC/AT NAD no inc WOB, no stridor, no steror nasal passages clear external ear WNL tongue mobile, OP clear, no OP swelling FOM firm to palpation significant submental and submandibular swelling and induration, spot of recent drainage on right side of mandible noted but no active drainage PFSH PFS Disclaimer: The information contained in this section may have been updated after the patient was seen, as this information can be updated by other users. Medical History Smoking greater than 30 pack years COPD (chronic obstructive pulmonary disease) Allergic rhinitis, unspecified Mediastinal lymphadenopathy Screening for lung cancer Tobacco abuse disorder Tobacco abuse counseling Pulmonary emphysema Multiple pulmonary nodules Smoking greater than 30 pack years Dyspnea on exertion Chronic sinusitis Surgical History H/O nasal septoplasty Family History Other No significant family history Social History Smoking Status: Never smoker smoking status stop date: 10/28/23 alcohol intake: never substance use type: denies use current occupational status: employed Travel in the last 8 weeks?: None caffeine: Yes Have you lived/traveled outside US in past 30 days?: No Contact w/someone who lives/traveled outside US past 30 days?: No Exposure to someone with infectious disease in past 14 days?: No Do you have a fever (greater than 100.4 F or 38 C)?: No Have you tested positive for COVID-19?: No Exposed to someone with COVID-19 in past 14 days?: No Do you have a sore throat?: No Do you have a cough?: No Do you have any weakness?: No Do you have any diarrhea?: No Are you experiencing any unusual bleeding?: No Do you have any muscle aches/pain?: No Do you have any abdominal pain?: Yes Are you experiencing loss of taste or smell?: No Meds Home Medications and Allergies Home Medications ?Medication ?Instructions ?Recorded ?Confirmed ?Type fremanezumab-vfrm 225 mg/1.5 mL 1 ml SQ MONTHLY migraines 10/26/20 06/15/24 History subcutaneous syringe (Ajovy Syringe) halobetasol propionate 0.05 % 15 gm topical DAILY * 03/26/21 06/15/24 History topical ointment ibuprofen 600 mg tablet 1 mg PO HS PRN pain 03/26/21 06/15/24 History diclofenac sodium 1 % gel topical 2 g topical BID 11/14/22 06/15/24 History kit folic acid 1 mg tablet 1 mg PO DAILY 11/14/22 06/15/24 History nystatin 100,000 unit/gram topical 1 applic topical DAILY 11/14/22 06/15/24 History cream omeprazole 20 mg capsule,delayed 20 mg PO DAILY 11/14/22 06/15/24 History release rimegepant 75 mg disintegrating 75 mg PO .PRN 11/14/22 06/15/24 History tablet (Nurtec ODT) trazodone 50 mg tablet 50 mg PO DAILY 11/14/22 06/15/24 History secukinumab 150 mg/mL subcutaneous 300 mg SQ Q4W 05/16/23 06/15/24 History pen injector (Cosentyx Pen) ipratropium 20 mcg-albuterol 100 1 puff inhalation Q6H PRN 12/04/23 06/15/24 Rx mcg/actuation mist for inhalation shortness of breath or wheezing 90 (Combivent Respimat) days #4 grams tiotropium 2.5 mcg-olodaterol 2.5 2 puff inhalation DAILY 90 days #4 04/15/24 06/15/24 Rx mcg/actuation mist for inhalation grams (Stiolto Respimat) fluticasone propionate 50 See Rx Instructions .Route 05/17/24 06/15/24 Rx mcg/actuation nasal .COMPLEX #16 mL spray,suspension nicotine (polacrilex) 2 mg gum See Rx Instructions .Route 05/31/24 06/15/24 Rx .COMPLEX #100 gums atorvastatin 80 mg tablet 80 mg PO DAILY 06/15/24 06/15/24 History celecoxib 100 mg capsule 100 mg PO DAILY 06/15/24 06/15/24 History cetirizine 10 mg tablet 10 mg PO DAILY 06/15/24 06/15/24 History ketotifen fumarate 0.025 % (0.035 1 drp Eye-Both BID 06/15/24 06/15/24 History %) eye drops leflunomide 10 mg tablet 10 mg PO DAILY 06/15/24 06/15/24 History valsartan 80 1 tab PO DAILY 06/15/24 06/15/24 History mg-hydrochlorothiazide 12.5 mg tablet venlafaxine 75 mg capsule,extended 75 mg PO DAILY 06/15/24 06/15/24 History release 24 hr montelukast 10 mg tablet See Rx Instructions .Route 06/28/24 Rx .COMPLEX #90 tabs azelastine 137 mcg (0.1 %) nasal 2 spray intranasal HS 90 days #30 07/05/24 Rx spray mL New Prescriptions to Start Prescriptions: Allergies Allergy/AdvReac Type Severity Reaction Status Date / Time albuterol Allergy Unknown Unknown Verified 06/15/24 11:24 allergy reaction amoxicillin (From Augmentin) Allergy Unknown Unknown Verified 06/15/24 11:24 allergy reaction bupropion Allergy Unknown Unknown Verified 06/15/24 11:24 allergy reaction cephalexin (From Keflex) Allergy Unknown Unknown Verified 06/15/24 11:24 allergy reaction clavulanic acid (From Allergy Unknown Unknown Verified 06/15/24 11:24 Augmentin) allergy reaction codeine Allergy Unknown Unknown Verified 06/15/24 11:24 allergy reaction levofloxacin (From Levaquin) Allergy Unknown Unknown Verified 06/15/24 11:24 allergy reaction phenol (From Chloraseptic) Allergy Unknown Unknown Verified 06/15/24 11:24 allergy reaction Results Labs 08/10/24 13:15 08/10/24 13:15 Labs: Abnormal lab results 08/10/24 Range/Units 13:15 Hgb 11.9 L (12.2-16.2) g/dL Hct 36.7 L (37.0-47.0) % Chloride 108 H (98-107) mmol/L Glucose 115 H (74-100) mg/dl AST 37 H (14-36) U/L H & H 08/10/24 Range/Units 13:15 Hgb 11.9 L (12.2-16.2) g/dL Hct 36.7 L (37.0-47.0) % All other labs normal. Assessment and Plan *Assessment and plan (1) Shilo angina: Status: Acute Category: Medical Code(s): K12.2 - Cellulitis and abscess of mouth Plan 54-year-old with likely developing Shilo angina in the setting of being on Cosyentrix from numerous odontogenic infections. I reviewed her CT scan and I do not see any obvious drainable abscesses but she has significant cellulitis and edema in her floor of mouth and submental area. She is not having any airway issues at this time and she has since been started on IV antibiotics by the emergency department. Given there is no abscess I do not see any indication for surgical intervention but I do think she warrants admission for airway observation, IV antibiotics, and likely see infectious disease. Unfortunately we do not have infectious disease coverage here in [place], as such I have discussed with the emergency room team about transfer to a tertiary care center that has this available which they and the patient are in agreement with. She certainly wants that this gets cool down needs to continue to follow with oral surgery about removing the remaining mandibular dentition to prevent this from happening going forward
[2024-08-10] MEDS: KETOROLAC 30MG/ML VIAL 30 MG IV (15:35)
--- NOTE | 2024-08-10 15:46 | PC.NURSE ---
accepted to [facility] by Dr. Wilson and [facility]
[2024-08-10 15:58] VITALS: BP 141/65; PULSE 74; RESP 16; O2SAT 97
[2024-08-10 16:22] VITALS: BP 135/87; PULSE 87; RESP 17; TEMP 36.7; O2SAT 98
== END 2024-08-10 16:24 | disposition short-term general hospital (02) ==
PROVIDERS: Nurse Practitioner Acute Care; Emergency Provider Emergency Medicine; PCP Nurse Practitioner Family
DX: L03.211 Cellulitis of face (principal); K12.2 Cellulitis and abscess of mouth; Z87.891 Personal history of nicotine dependence
CPT/HCPCS: 10060; 70487; 70491; 80053; 85025; 96365; 96366; 96375; 99285; J1200; J1836; J1885; J3372; J7030; Q9967

== ENCOUNTER 2024-11-16 08:24 | Outpatient (CLI) | payer MEDICAID, SELFPAY ==
--- OUTSIDE RECORDS SUMMARY | 2024-06-19 17:30 | XMS_ITS ---
Author Organization [facility] Address [address] [facility] [address] [place] [address] Care Team Providers Care Barrel Cooper Name Role Phone Darian Escamilla Primary Care Provider [phone] Anne Hancock Unavailable [phone] Migration, Provider Unavailable Unavailable Allergies Allergen (clinical drug ingredient) Drug/Non Drug Allergy documented on EMR Reaction Allergy Type Onset Date Status CHLOROSEPTIC (uncoded) hives/rash Allergy Active LEVAQUIN (uncoded) rash Allergy A ctive ZYBAN (uncoded) hives Allergy Acti ve amoxicillin / clavulanate Augmentin hives Drug Allergy Active escitalopram Lexapro Unknown Drug Allergy Acti ve codeine Codeine hives Drug Allergy Active REASON FOR VISIT [facility] To [facility] Conversion Encounter Medications Medication SIG (Take, Route, [...] review and pick correct strength-formulat ion from [employer]omato options. If intended option is not shown, [...] review and pick correct strength-formulat ion from Zomato options. If intended option is not shown, discontinue and re-order from Quick Search* Active Leflunomide 10 MG 1 tab(s) orally once a day Active Venlafaxine HCl ER 150 MG 1 cap(s) orally once a day; Duration: 30 days 06/16/2024 Active Encounters Encounter Location Date Provider Diagnosis [facility] [address] [facility] [address] [place] [id number] 06/19/2024 Provider Migration Depression with anxiety F41.8 [...] * Bridgette JENKINS RDOB:1969 (54 yo F)Acc No.[id number]:06/19/2024 Patient: Bridgette CASE Provider: Shaheed Dykes :1970 A ge:54 Y S ex:Female Date:06/19/2024 Address:[address] [place], [place] [id number] Pcp:Darian Escamilla Subjective: * Chief Complaints: * 1 . [facility] En[facility]. * Medical History: * Medications: T aking Leflunomide 10 MG Tablet 1 tab(s) orally once a day , Taking Stiolto Respimat 2.5 MCG-2.5 MCG/INH AEROSOL 2 PUFF(S) INHALED EVERY 24 HOURS , Notes to Pharmacist: *Please review and pick correct strength-formulation from [employer] options. If intended option is not shown, [...] *Please review and pick correct strength-formulation from [facility] options. If intended option is not shown, [...] Treatment: * * Electronic signature of Prov ider Migration on 11/16/2024 at 08:44 AM EDT Sign off status: Pending * Provider: Shaheed schmid Migration Date: 0 06/19/2024 Generated for Ernesto resendez/Lynda/Rebekah on: 0 11/16/2024 08:44 AM EDT
--- OUTSIDE RECORDS SUMMARY | 2024-09-21 10:30 | XMS_ITS | Encounter Summary ---
Author Organization Healthcare Address [address] [place] [address] Care Team Providers Care Blown Film Extrusion Operator Name Role Phone Anne Hancock CELIA Primary Care Provider [phone] Reason for Referral * Consultation (Routine) - Authorized Specialty Diagnoses / Procedures Referred By Mukesh woo Referred To Contact Diagnoses Osteomyelitis of mandible Leighann Rodriguez APRN [address] [address] Phone: tel: fax: Referral ID Status Reason Start Date Expiration Date V isits Requested Visits Authorized [id number] Authorized 09/21/2024 03/23/2026 1 1 Reason for Visit * Reason Comments Hospital Follow Up Encounter Details Date Type Department Care Team (Late st Contact Info) Description 09/21/2024 10:30 AM EDT Office Visit [address] [address] Leighann Rodriguez APRN [address] [address] Osteomyelitis of mandible (Primary Dx); Receiving intravenous antibiotic treatment at home; Hospital discharge follow-up Social History Tobacco Use Types Packs/Day Years Used Date Smoking Tobacco: Former Cigarettes Smokeless Tobacco: Never Alcohol Use Standard Drinks/Week Comments Not Currently 0 (1 standard drink = 0.6 oz pur e alcohol) Humiliation, Afraid, Rape, and Kick questionnair e Answer Date Recorded Within the last year, have y ou been afraid of your partner or ex-partner? No 08/13/2024 Within the last year, have y ou been humiliated or emotionally abused in other ways by your partner or ex-partner? No Within the last year, have y ou been kicked, hit, slapped, or otherwise physically hurt by your partner or ex-partner? No 08/13/2024 Within the last year, have y ou been raped or forced to have any kind of sexual activity by your partner or ex-partner? No 08/13/2024 PHQ-2 Answer Date Recorded Patient Health Questionnaire-2 Score 0 05/13/2024 Hunger Vital Sign Answer Date Recorded Within the past 12 months, y ou worried that your food would run out before you got the money to buy more. Never true 08/14/19 25 Within the past 12 months, t he food you bought just didn't last and you didn't have money to get more. Never true 08/13/2024 PRAPARE - Transportation Answer Date Re corded In the past 12 months, has l ack of transportation kept you from medical appointments or from getting medications? No 07/17 In the past 12 months, has l ack of transportation kept you from meetings, work, or from getting things needed for daily living? No 08/13/2024 Housing Stability Vital Sign Answer Get e Recorded In the last 12 months, was t here a time when you were not able to pay the mortgage or rent on time? No 08/13/2024 In the past 12 months, how m any times have you moved where you were living? 0 08/13/2024 At any time in the past [address] [facility], were you homeless or living in a chcf (including now)? No 08/13/2024 Utilities Answer Date Recorded In the past 12 months has e electric, gas, oil, or water company threatened to shut off services in your home? No 08/13/2024 PHQ-2A Answer Date Recorded Patient Health Questionnaire-2 Score 0 10/18/2022 Comments No Sex and Gender Information Value Date Recorded Sex Assigned at Not on file Legal Sex Female 6:58 PM EDT Gender Identity Not on file Sexual Orientation Not on file documented as of this encounter Last Filed Vital Signs Vital Sign Reading Time Taken Comments Blood Pressure 128/84 09/21/2024 10:20 AM EDT Pulse 74 09/21/2024 10:20 AM EDT Temperature 36.6 C (97.8 F) 09/21/2024 10:20 AM EDT Respiratory Rate - - Oxygen Saturation 95% 09/21/2024 10:20 AM EDT Inhaled Oxygen Concentration - - Weight 76.8 kg (169 lb 5 oz) 09/21/2024 10:20 AM EDT Height 154.9 cm (5' 1 ) 09/21/2024 10:20 AM EDT Body Mass Index 31.99 09/21/2024 10:20 AM EDT documented in this encounter Miscellaneous Notes * Coral Parra RN - 09/21/2024 10:46 AM EDT Images from the original note were not included. 810 After PICC Line Removal How do I care for myself at home? Before you go home. When the PICC is out, we will put pressure at the insertion site. This helps prevent bleeding. We may put antibiotic ointment on the site. We will tape dry, sterile gauze over thesite. Leave this dressing on for 24 hours. Cleaning the site. After the 24 hours is up, you may remove the dressing. The PICC site is very small. A small scab may form at the site. It is okay to wash the site gently with soap and water. Do not remove or pick the scab off. After washing, gently pat the site dry. You do not need to put another dressing on after you wash it. Activity. Avoid hard physical activity for 24 hours. This includes things like: ?? Weight lifting ?? Hard yard work ?? Any physical activity with repeated arm movements When do I call my doctor? Call or see your caregiver if you have any of these problems in the arm that had the PICC: ?? Swelling or puffiness ?? Tenderness or pain that gets worse When should I go to the Emergency Room? Go to the nearest ER if you have any of these problems in the arm that had the PICC: ?? Numbness or tingling in your fingers, hand, or arm ?? Arm has a blue color and feels cold to the touch ?? Redness around the insertion site or a red-streak goes up your arm ?? Any type of drainage from the PICC insertion site - including: o Bleeding - (If so, use a clean towel to put firm, direct pressure to the site.) o Drainage that is yellow or armstrong in color ?? You have temperature by mouth above 102??F (38.9?? C) that is not helped by medicine * Progress Notes - Leighann Rodriguez APRN - 09/21/2024 10:30 AM EDT INFECTIOUS DISEASE HOSPITAL FOLLOW UP NOTE Patient Name: Bridgette Herr [id number] female 54 y.o. Admission Dates: 08/10/24 --> 08/16/24 ANTIMICROBIAL REVIEW: [facility] HOSPITAL HPI: Bridgette Herr is a 54 y.o. female with history of hypertension, hyperlipidemia, GERD, PsoriaticArthritis on COsentyx and history of tobacco use disorder with recent dental extractions performed by General Dentistry on 07/02; followed by oral maxillofacial surgical dental extraction performed on 07/23 with a complication of mandibular abscess formation/gum line infection. Patient has recent antibiotic exposure to clindamycin, azithromycin, Flagyl therapy. Patient reports mandibular edema and erythema improved while on Flagyl; however, after completing this one-week course of antibiotic, she developed submental edema, erythema with spontaneous purulent drainage of the right chin leading her to ED for evaluation. Patient was hemodynamically stable at the time of admission with normal white count and renal function. She was initiated on antibiotics with cefepime and Flagyl therapy based on her antibiotic intolerances noted in the past. Oral maxillofacial surgery took her for submental abscess I&D with mandibular bone biopsy for culture and right neck fistulectomy on 08/11/2024. All surgical cultures are currently pending. With concern for osteomyelitis, Infectious Disease was asked see the patient. Agree with the concern of osteomyelitis given recent dental extraction procedures in the setting ofpoor healing and intraoral/extraoral purulent drainage as an outpatient. We will continue to followsurgical cultures for antibiotic recommendations. She has multiple drug intolerances listed and would consider transition to ertapenem 1 g IV daily with monitoring of tolerance while inpatient. Agreethat she will require 6 weeks of IV antibiotics with the use of single lumen PICC line to facilitate discharge to home. OPAT nurse navigator requested to see the patient to assist with possible discharge prior to the weekend RECOMMENDATIONS: Continue Invanz 1 g IV Daily and monitor tolerance -If she is itchy with infusion, can pre-medicate with Benadryl -Would recommend discontinue if there is concern for tongue/lip swelling, difficulty swallowing or breathing (d/w patient) Single lumen PICC line to assist with outpatient infusion needs Lab Monitoring (weekly, preferably on Mondays unless otherwise specified): CBC w/ differential, BUN, SrCr, and LFTs, CRP Start Date: 08/11/24 Stop Date: 09/21/24 Anticipated Duration of therapy : 6 weeks total Wound care (to include mouth rinses) per OMFS recommendations HPI: Ms. Herr presents to clinic today for hospital follow-up. Patient was recently admitted due to mandibular OM with sinus tract/orocutaneous fistula present. Patient is s/p recent dental extraction(07/02 and 07/23). Inpatient ID recommended 6 weeks of IV Invanz which is due to end today. Patient reports that the jaw pain has improved, denies any drainage, and swelling is improving. She does report that she just recently had the rest of her teeth extracted. REVIEW OF SYSTEMS: 14-point ROS negative except as stated above. ALLERGIES: Allergies[1] VITAL SIGNS: Visit Vitals BP 128/84 Pulse 74 Temp 36.6 ??C (97.8 ??F) (Oral) Ht 1.549 m (5' 1 ) Wt 76.8 kg (169 lb 5 oz) SpO2 95% BMI 31.99 kg/m?? PHYSICAL EXAM: Physical Exam Vitals reviewed. Constitutional: Appearance: Normal appearance. HENT: Head: Normocephalic. Cardiovascular: Heart sounds: Normal heart sounds. Pulmonary: Effort: Pulmonary effort is normal. Breath sounds: Normal breath sounds. Abdominal: General: Bowel sounds are normal. Palpations: Abdomen is soft. Musculoskeletal: Cervical back: Normal range of motion and neck supple. Skin: General: Skin is warm and dry. Neurological: Mental Status: She is alert and oriented to person, place, and time. Psychiatric: Mood and Affect: Mood normal. Behavior: Behavior normal. No images are attached to the encounter. LABS:. Documentation on 09/16/2024 Component Date Value Ref Range Status External C-Reactive Protein(CRP) 09/16/2024 0.4 (A) 0.05 - 0.3 mg/dl Final External BUN 09/16/2024 9 Final External Creatinine Blood 09/16/2024 0.9 mg/dL Final External AST (SGOT) 09/16/2024 80 Final External ALT (SGPT) 09/16/2024 135 Final External Alkaline Phosphatase 09/16/2024 82 Final External Bilirubin Total 09/16/2024 0.5 mg/dL Final External WBC 09/16/2024 6.1 4.5 - 11.5 10^3/ul Final External Red Blood Cell (RBC) 09/16/2024 4.49 Final External Hemoglobin (Hgb) 09/16/2024 12.80 Final External Platelet Count (Plt) 09/16/2024 241 Final External Neutrophil Abs 09/16/2024 3.73 Final External Lymphocyte-Absolute 09/16/2024 1.59 Final External Eos-Absolute 09/16/2024 0.25 10^3/ul Final ASSESSMENT/PLAN: Problem List Items Addressed This Visit None Visit Diagnoses Osteomyelitis of mandible - Primary Relevant Medications ertapenem (INVanz) injection Receiving intravenous antibiotic treatment at home Hospital discharge follow-up Reviewed inpatient records, previous test results, and OPAT communications. I will discontinue the IV antibiotic today and have the OPAT RN remove her PICC. She will remain inoffice for 30 minutes s/p PICC removal for monitoring. Patient will return in 1 month for follow-up. Leighann Rodriguez APRN Infectious Diseases [1] Allergies Allergen Reactions Albuterol Hives Amoxicillin-Pot Clavulanate Hives and Rash Tolerated cefepime 07/2024 Bupropion Hives Cephalexin Hives Tolerated cefepime 07/2024 Codeine Hives Escitalopram Hives Levofloxacin Hives Phenol Hives * Progress Notes - Coral Armendariz RN - 09/21/2024 10:30 AM EDTAssociated Order(s): Discontinue PICC Pre-Procedure Diagnose(s): Osteomyelitis of mandible Post-Procedure Diagnose(s): Osteomyelitis of mandible Patient ID: Bridgette Herr is a 54 y.o. female. Encounter Diagnoses Name Primary? Osteomyelitis of mandible Yes Receiving intravenous antibiotic treatment at home Hospital discharge follow-up Discontinue PICC Date/Time: 09/21/2024 10:40 AM Performed by: Coral Armendariz RN Authorized by: Leighann Rodriguez APRN Consent: Consent obtained: Verbal Consent given by: [facility] protocol: Procedure explained and questions answered to patient or proxy's satisfaction: yes Site/side marked: yes Immediately prior to procedure, a time out was called: yes Patient identity confirmed: Verbally with patient Sedation: Sedation type: None Procedure specific details: Patient remained in clinic for 30 minutes following removal. No concerns noted. Return precautions and care instructions reviewed, patient verbalized understanding. Post-procedure details: Procedure completion: Tolerated well, no immediate complications documented in this encounter Plan of Treatment Upcoming Encounters Date Type Department Care Team (Late st Contact Info) Description 01/13/2025 10:30 AM EDT Office Visit [facility] Medicine Specialties [address] [place] [address] Rafael Michele APRN [address] [place] [address] Scheduled Referrals Name Type Priority Associated Diagnoses Orde r Schedule Follow Up ID Outpatient Referral Routine Osteomyelitis of mandible 1 Occurrences starting 09/21/2024 until 10/22/2025 documented as of this encounter Procedures Procedure Name Priority Date/Time Associated Diagnosis Comments DISCONTINUE PICC Routine 09/21/2024 10:4 0 AM EDT Osteomyelitis of mandible documented in this encounter Results * Discontinue PICC (09/21/2024 10:40 AM EDT) Narrative Coral Armendariz RN - 09/21/2024 10:40 AM EDT Coral Armendariz RN 09/21/2024 10:46 AM Discontinue PICC Date/Time: 09/21/2024 10:40 AM Performed by: Coral Armendariz RN Authorized by: Leighann Rodriguez APRN Consent: Consent obtained: Verbal Consent given by: [facility] [place] protocol: Procedure explained and questions answered to patient or proxy's satisfaction: yes Site/side marked: yes Immediately prior to procedure, a time out was called: yes Patient identity confirmed: Verbally with patient Sedation: Sedation type: None Procedure specific details: Patient remained in clinic for 30 minutes following removal. No concerns noted. Return precautions and care instructions reviewed, patient verbalized understanding. Post-procedure details: Procedure completion: Tolerated well, no immediate complications Leighann Rodriguez APRN IV THERAPY ORDERABLES Daja ballesteros Result documented in this encounter Visit Diagnoses Diagnosis Osteomyelitis of mandible- Primary Receiving intravenous antibiotic treatment at home Hospital discharge follow-up Other follow-up examination documented in this encounter Additional Health Concerns Assessment Noted Time A fall risk assessment has been complete d for the patient 05/13/2024 9:20 AM EST A Body Mass Index follow-up plan has been documented for the patient 09/30/2024 3:45 PM EDT documented as of this encounter Care Teams Blown Film Extrusion Operator Relationship Specialty Start Date End Date Anne Hancock APRN [address] [place] [address] PCP - General 07/28/20 documented as of this encounter
--- OUTSIDE RECORDS SUMMARY | 2024-09-22 13:07 | XMS_ITS ---
Author Organization [facility] Address [address] [facility] [address] [facility] [address] [place] [address] Care Team Providers Care E Commerce Solution Architect Name Role Phone Darian Escamilla Primary Care Provider KarissaAnne cope [facility] [phone] Results Component Value Reference Range Notes QUANTIFERON(R)-TB GOLD PLUS, 1 TUBE (24571) Reviewed date:11/04/2024 10:50:09 AM Interpretation: Performing Lab:[facility], [facility] [facility] Lennox Menendez Notes/Report: NON-FASTING QUANTIFERON(R)-TB GOLD PLUS, 1 TUBE NEGATIVE NEGATIVE Negative test result. M. tuberculosis complex infection unlikely. NIL 0.02 MITOGEN-NIL 7.56 TB1-NIL 0.00 TB2-NIL 0.00 The Nil tube value reflects the background interferon gamma immune response of the patient's blood sample. This value has been subtracted from the patient's displayed TB and Mitogen results. Lower than expected results with the Mitogen tube prevent false-negative Quantiferon readings by detecting a patient with a potential immune suppressive condition and/or suboptimal pre-analytical specimen handling. The TB1 Antigen tube is coated with the M. tuberculosis-specific antigens designed to elicit responses from TB antigen primed CD4+ helper T-lymphocytes. The TB2 Antigen tube is coated with the M. tuberculosis-specific antigens designed to elicit responses from TB antigen primed CD4+ helper and CD8+ cytotoxic T-lymphocytes. 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 P olyarticular psoriatic arthritis - L40.59 (Primary) 2 . I mmunosuppressed status - D89.9 Plan: * Treatment: 2. I mmunosuppressed status L AB: QUANTIFERON(R)-TB GOLD PLUS, 1 TUBE (97350) * Procedure Codes: * true * Date: Generated for Calistai ng/Falashellg/eTransmitting on: 0 11/16/2024 08:44 AM EDT
--- NOTE | 2024-11-16 08:30 | CT_ITS ---
FINAL REPORT TECHNIQUE: Thin section axial images were obtained from the lung apices to the upper abdomen by computed tomography. Reformatted images were obtained and reviewed. This study was performed with techniques to keep radiation doses al low as reasonably achievable (ALARA). Individualized dose reduction techniques using automated exposure control or adjustment of mA and/or kV according to the patient's size were employed. CLINICAL HISTORY: lung cancer screening former smoker, quit 1 year ago. smoked 1 ppd x 30 years COMPARISON: 11/12/2023 FINDINGS: CHEST CT LOW DOSE 54-year-old female, former smoker for 1 year, 62-mngo-zqbv history. CTDI vol (mGy): 2.90 DLP (mGy-cm): 92.73 There is no axillary adenopathy. There is no mediastinal or hilar mass or adenopathy. The heart is normal in size. There is no pericardial or pleural effusion. Lung window images demonstrate the lobular contiguous nodules in the anterior right lower lobe, stable when compared to the prior exam of 11/12/2023. This is best seen on image #36 of series 4, and in aggregate the nodules measure up to 1.8 centimeters in size, stable. Limited images of the upper abdomen are unremarkable. IMPRESSION: Lung-RADS category 2. Recommend 12 month follow up low dose chest CT. Reviewed, Interpreted and Dictated by Ezequiel Bateman MD Transcribed by Chula Herrera Authenticated and [facility]
--- OUTSIDE RECORDS SUMMARY | 2024-11-16 08:44 | XMS_ITS | Referral Summary ---
Author Organization [facility] ([place], [place], [place], [place]) Address [address] [place] [address] Care Team Providers Care Partition Notcher Name Role Phone Unavailable Primary Care Provider Unavailabl e Social History Tobacco Use Types Packs/Day Years Used Date Smoking Tobacco: Never Assessed Food Insecurity Answer Date Recorded Food run out past 12 months Not on file 03/18 Food did not last past 12 months Not on file 04/05/2023 Employment Answer Date Recorded Help finding and keeping a job Not on file 0 04/05/2023 Family and Community Support Answer Get e Recorded Help with Day to Day Activities Not on file 04/05/2023 Feeling Lonely or Isolated Not on file 04/05 Educational Attainment Answer Date Wolf rded Speak language other than Guamanian at home Not on file 04/05/2023 Want help with school or training Not on file 04/05/2023 Substance Use Answer Date Recorded Used prescription meds for non-medical reasons N ot on file 04/05/2023 Used illegal drugs past 12 months Not on file 04/05/2023 Comments Unknown Sex and Gender Information Value Date Recorded Sex Assigned at Not on file Legal Sex Female 9:44 AM FELT FINISHER Gender Identity Not on file Sexual Orientation Not on file Plan of Treatment Not on file [facility]
--- OUTSIDE RECORDS SUMMARY | 2024-11-16 08:44 | XMS_ITS | Encounter Summary ---
Author Organization Healthcare Address [address] [place] [address] Care Team Providers Care Chief Of Anesthesiology Name Role Phone Anne Hancock APRN Primary Care Provider [phone]- [phone] Reason for Visit * Reason Onset Date Comments Med Refill 04/18/2023 Encounter Details Date Type Department Care Team (Late st Contact Info) Description 04/18/2023 Refill [facility] Medicine Specialties [address] [place] [address] Cassidy Bolanos MD [address] [facility] [address] [place] [address] Psoriatic arthritis (CMS/HCC) Social History Tobacco Use Types Packs/Day Years Used Date Smoking Tobacco: Every Day Smokeless Tobacco: Never Alcohol Use Standard Drinks/Week Comments Yes 0 (1 standard drink = 0.6 oz pur e alcohol) PHQ-2 Answer Date Recorded Patient Health Questionnaire-2 Score 0 04/22/2023 PHQ-2A Answer Date Recorded Patient Health Questionnaire-2 Score 0 10/18/2022 Comments Unknown Sex and Gender Information Value Date Recorded Sex Assigned at Not on file Legal Sex Female 6:58 PM EDT Gender Identity Not on file Sexual Orientation Not on file documented as of this encounter Plan of Treatment Upcoming Encounters Date Type Department Care Team (Late st Contact Info) Description 01/13/2025 10:30 AM EDT Office Visit [facility] Medicine Specialties [address] [place] [id number] Rafael Michele, CELIA [address] [place] [address] documented as of this encounter Visit Diagnoses Diagnosis Psoriatic arthritis (CMS/HCC) Psoriatic arthropathy documented in this encounter Additional Health Concerns Assessment Noted Time A fall risk assessment has been complete d for the patient 04/19/2022 10:44 AM EST A Body Mass Index follow-up plan has been documented for the patient 10/18/2022 7:22 PM EDT documented as of this encounter Care Teams Chief Of Anesthesiology Relationship Specialty Start Date End Date Anne Hancock APRN [address] [phone] PCP - General 07/28/20 documented as of this encounter
--- OUTSIDE RECORDS SUMMARY | 2024-11-16 08:44 | XMS_ITS | Encounter Summary ---
Author Organization [facility] Address [address] [place] [address] Care Team Providers Care Telephonic Case Manager Name Role Phone Anne Hancock CELIA Primary Care Provider +1- [phone] Encounter Details Date Type Department Care Team (Latest Contact Info) Description 09/21/2024 Travel Social History Tobacco Use Types Packs/Day Years [...] any time in the past 12 m [facility], were you homeless or living in a senior living (including now)? No 08/13/2024 Utilities Answer Date Recorded In the past 12 months has th e electric, gas, oil, or water company [...] Description 01/13/2025 10:30 AM EDT Office Visit [facility] Medicine Specialties [address] [place] [address] Rafael Michele APRN [address] [place] [address] documented as of this encounter Visit Diagnoses Not on filedocumented in this encounter Additional Health Concerns Assessment Noted Time A fall risk assessment has been complete d for the patient 05/13/2024 9:20 AM EST A Body Mass Index follow-up plan has been documented for the patient 09/30/2024 3:45 PM EDT documented as of this encounter Care Teams Telephonic Case Manager Relationship Specialty Start Date End Date Anne Hancock APRN [address] [place] [address] PCP - General 07/28/20 documented as of this encounter
--- OUTSIDE RECORDS SUMMARY | 2024-11-16 08:44 | XMS_ITS | Patient Health Record ---
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 Role Phone Darian Escamilla Primary Care Provider Anne Hancock Unavailable [phone] Migration, Provider Unavailable Unavailable Allergies Allergen (clinical drug ingredient) Drug/Non Drug Allergy documented on EMR Reaction Allergy Type Onset Date Status CHLOROSEPTIC (uncoded) hives/rash Allergy Active LEVAQUIN (uncoded) rash Allergy A ctive ZYBAN (uncoded) hives Allergy Acti ve amoxicillin / clavulanate Augmentin hives Drug Allergy Active escitalopram Lexapro Unknown Drug Allergy Acti ve codeine Codeine hives Drug Allergy Active Results Component Value Reference Range Notes QUANTIFERON(R)-TB GOLD PLUS, 1 TUBE (82950) Reviewed date:11/04/2024 10:50:09 AM Interpretation: Performing Lab:[facility], [facility] HospitalGzwhSX[address] Lennox Menendez Notes/Report: NON-FASTING QUANTIFERON(R)-TB GOLD PLUS, [...] T-lymphocytes. For additional information, please refer to https://[email or web address]/faq/[email or web address] (This link is being provided for informational/ educational purposes only.) Medications Medication SIG (Take, Route, Frequency, Duration) Notes Start Date End Date Status Atorvastatin Calcium 80 MG 1 tab(s) orally once a day; Duration: 90 days Active Folic Acid 1 MG 1 tab(s) orally once a day; Duration: 30 day(s) Active ALL DAY ALLERGY (CETIRIZINE) 10 MG 1 TAB(S) ORALLY ONCE A DAY; Duration: 90 DAYS *Please review for potential replacement for e-prescription and drug interaction check* Active Leflunomide 10 MG 1 tab(s) orally once a day Active Stiolto Respimat 2.5 MCG-2.5 MCG/INH 2 PUFF(S) INHALED EVERY 24 HOURS *Please review and pick correct strength-formulat ion from [employer] options. If intended option is not shown, discontinue and re-order from Quick Search* Active Ibuprofen 600 MG 1 tab(s) orally 3 times a day as needed for joint pain; Duration: 30 days Active Venlafaxine HCl ER 150 MG TAKE 1 CAPSULE BY MOUTH EVERY DAY FOR 30 DAYS; Duration: 30 Active Diclofenac Sodium 1 % as directed applied topically 4 times a day; Duration: 30 days Active Halobetasol Propionate 0.05 % 1 margaret applied topically 2 times a day; Duration: 25 Active Methocarbamol 500 MG 1-2 tablets orally 2 times a day as needed for spasm; Duration: 10 days Active NURTEC ODT 75 MG TAKE 1 TABLET BY MOUTH EVERY DAY PRN FOR MIGRAINES; Duration: 28 days Active Valsartan-hydroCHLOR Othiazide 80-12.5 MG TAKE 1 TABLET BY MOUTH EVERY DAY FOR 30 DAYS; Duration: 30 Active Cosentyx 150 MG/ML 300mg subcutaneously every 4 weeks Active Ajovy 225 MG/1.5ML INJECT SUBCUTANEOUSL Y ONCE A MONTH 30 DAYS; Duration: 30 Active traZODone HCl 50 MG 2 tablets orally onc e a day at night; Duration: 30 days Active Combivent Respimat 20-100 MCG/ACT INHALE 1 PUFF BY MOUTH EVERY 6 HOURS NEEDED; Duration: 30 Active Fluticasone Propionate 50 MCG/ACT 2 sprays each nostril once a day; Duration: 30 days Active Promethazine HCl 25 MG 1 tab(s) orally every 6 hours as needed for nausea/vomiting; Duration: 3 days 05/27/2023 Active Omeprazole 20 MG TAKE 1 CAPSULE BY MOUTH EVERY DAY FOR 30 DAYS; Duration: 30 Active amLODIPine Besylate 5 MG TAKE 1 TABLET BY MOUTH EVERY DAY; Duration: 30 Active Immunizations Vaccine Route Administration Date Status Comme nts Flublok IM Intramuscular 12/21/2019 Administered Lot # [id number] Flublok IM Intramuscular 01/09/2022 Administered Pneumovax 23 IM Intramuscular 01/20/2017 Administered SHINGRIX Unknown 03/26/2021 Administered SHINGRIX Unknown 07/17/2021 Administered Social History Tobacco Use: Social History Observation Description Date Details (start date - stop date) Former Smoker NA - NA Tobacco Control (Standard) Question Answer Notes Tobacco use: Former smoker How long has it been since you last smoked? 1-5 years Problems Problem Type SNOMED Code ICD Code Onset Dates Problem Status W/U Status Risk Notes Problem Hyperlipidemia (72258328) Hyperlipidemia, unspecified (E78.5) Active confirmed Problem Anxiety disorder (126566233) Anxiety disorder, unspecified (F41.9) Active confirmed Problem Simple chronic bronchitis (11781942) Simple chronic bronchitis (J41.0) Active confirmed Problem Localized, primary osteoarthritis of the hand (082046575) Primary osteoarthritis, right hand (M19.041) Active confirmed Problem Localized, primary osteoarthritis of the hand (245151001) Primary osteoarthritis, left hand (M19.042) Active confirmed Problem Tobacco use (466276919) Tobacco use (Z72.0) Active confirmed Problem Mixed anxiety and depressive disorder (091978161) Depression with anxiety (F41.8) Active confirmed Problem Allergic rhinitis (55309708) Allergic rhinitis (J30.9) Active confirmed Problem Vitamin D deficiency (39744304) Vitamin D deficiency (E55.9) Active confirmed Problem Tobacco use (638190827) Tobacco use disorder (Z72.0) Active confirmed Problem Chronic obstructive pulmonary disease (21401215) 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) Active confirmed Problem Essential hypertension (08100546) Essential hypertension (I10) Active confirmed Problem Psoriasis (2652948) Psoriasis (L40.9) Active co nfirmed Problem Seasonal allergy (992812612) Seasonal allergies (J30.2) Active confirmed Problem Body mass index 30.00 to 34.99 (822802307504111) BMI 34.0-34.9,adult (Z68.34) Active confirmed Problem Chronic pain (22307237) Other chronic pain (G89.29) Active confirmed Problem BMI 30+ - obesity (532195564) BMI 32.0-32.9,adult (Z68.32) Active confirmed Problem Chronic migraine (560477428) Chronic migraine (G43.709) Active confirmed Problem Abnormal mammogram (098363545) Abnormal mammogram (R92.8) Active confirmed Problem Chronic insomnia (241301959) Chronic insomnia (F51.04) Active confirmed Problem Disorder of immune function (528818799) Immunosuppressed status (D89.9) Active confirmed Problem Migraine without aura, not refractory (687555795) Migraine NOS/not intrcbl (G43.009) Active confirmed Problem 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) Active confirmed Problem Dysphagia (49206522) Dysphagia, unspecified type (R13.10) Active confirmed Problem Reflux gastritis (12008117) Reflux gastritis (K29.60) Active confirmed Problem Folate deficiency (081524104) Folate deficiency (E53.8) Active confirmed Problem Elevated blood-pressure reading without diagnosis of hypertension (202255287) Elevated blood pressure reading (R03.0) Active confirmed Problem Nocturia (655935428) Nocturia more than twice per night (R35.1) Active confirmed Problem Acne rosacea, erythematous telangiectatic type (419838) Acne rosacea, erythematous telangiectatic type (L71.8) Active confirmed Problem Thyromegaly (5055904) Thyromegaly (E01.0) Active confirmed Problem Menopausal flushing (981931457) Hot flashes, menopausal (N95.1) Active confirmed Problem Drug-induced immunodeficiency (disorder) (593536260) 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) Active confirmed Problem Impaired fasting glycaemia (012785881) IFG (impaired fasting glucose) (R73.01) Active confirmed Problem Tomography - chest abnormal (739477217) Abnormal CT of the chest (R93.89) Active confirmed Problem Sebaceous cyst of skin of breast (56858561) Sebaceous cyst of skin of left breast (N60.82) Active confirmed Vital Signs Heart Rate 92 /min 08/25/2024 Temperature 98 degrees Fahrenheit 08/25/2024 Blood pressure diastolic 80 mm Hg 08/25/2024 Height 60 in 08/25/2024 Blood pressure systolic 122 mm Hg 08/25/2024 Weight 168 lbs 08/25/2024 BMI 32.81 kg/m2 08/25/2024 Encounters Encounter Location Date Provider Diagnosis [facility] [address] [facility] [address] [place] [address] 06/19/2024 Provider Migration Depression with anxiety F41.8 [facility] [place] [address] [address] 06/02/2024 Anne Karissa Essential hypertensi on I10 ; Polyarticular psoriatic arthritis L40.59 ; Depression with anxiety F41.8 ; BMI 34.0-34.9,adult Z68.34 and Acute left-sided low back pain without sciatica M54.50 [facility] [place] [address] [address] 06/16/2024 Anne Karissa Essential hypertensi on I10 ; Depression with anxiety F41.8 and Hot flashes, menopausal N95.1 [facility] [address] [address] 08/25/2024 Anne Karissa Dental abscess K04.7 ; Essential hypertension I10 ; Hospital discharge follow-up Z09 ; BMI 32.0-32.9,adult Z68.32 ; Polyarticular psoriatic arthritis L40.59 ; Immunosuppressed status D89.9 and Submental abscess L02.01 [facility] [address] [facility] [address] [place] [address] 11/18/2023 Anne Karissa [facility] [address] [facility] [address] [place] [address] 12/15/2023 Anne Karissa [facility] [address] [place] [address] 12/31/2023 Anne Karissa [facility] [address] [place] [address] 04/20/2024 Anne Karissa [facility] [address] [place] [address] 06/29/2024 Anne Karissa [facility] [address] [place] [address] 07/01/2024 Anne Karissa [facility] [address] [facility] [address] [place] [address] 08/04/2024 Anne Karissa [facility] [place] [address] [place] [address] 08/19/2024 Darian Besson [facility] [address] [place] [address] 08/25/2024 Anne Karissa [facility] [place] [address] [facility] [address] [place] [address] 09/14/2024 Anne Karissa [facility] [address] [place] [address] 09/22/2024 Anne Karissa Polyarticular psoria tic arthritis L40.59 and Immunosuppressed status D89.9 Assessments Encounter Date Diagnosis (ICD Code) Assessment Notes Treatment Notes Treatment Clinical Notes Section Notes 09/22/2024 Immunosuppressed status (ICD-10 - D89.9) 09/22/2024 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 consider stress testing pending those results. add additional therapy for HTN...discussed importance of weight loss. weight has been stable over the past year. She has improved portion control, isn't drinking soda, does have 2 cups of coffee most days. encouraged more regular exercise, either walking or use of exercise bike which would be easiest on her joints. 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 gabapentin may be a reasonable option. concerned about use of Veozah due to risk of hepatotoxicity and her other medications with similar risk. 06/16/2024 Essential hypertension (ICD-10 - I10) Much better control, requested results of echo 06/16/2024 Hot flashes, menopausal (ICD-10 - N95.1) 06/02/2024 Depression with anxiety (ICD-10 - F41.8) no changes recommended, much of this seems situational at present 08/25/2024 Hospital discharge follow-up (ICD-10 - Z09) records reviewed 08/25/2024 BMI 32.0-32.9,adult (ICD-10 - Z68.32) discussed importance of limiting calories and increasing physical activity for weight loss 06/02/2024 BMI 34.0-34.9,adult (ICD-10 - Z68.34) complicates all aspects of care 06/02/2024 Acute left-sided low back pain without sciatica (ICD-10 - M54.50) suspect SI inflammation, she will d/w orthopedics 08/25/2024 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) 08/25/2024 Immunosuppressed status (ICD-10 - D89.9) 08/25/2024 Submental abscess (ICD-10 - L02.01) Plan Of Treatment Pending Test Test Name Order Date X ray : Chest 06/10/2019 Ultrasound : Breast, Left 12/13/2016 Ultrasound : Breast, Left 06/24/2017 Ultrasound : Pelvis, Transvaginal 2011 Mammogram : Diagnostic 06/04/2017 Mammogram : Left breast 12/13/2016 Mammogram : Left breast 12/23/2016 Mammogram : Right Breast 12/23/2016 Rapid Strep 11/28/2008 H-CRP 06/01/2014 , Rapid Urine 09/25/2011 Physical Therapy 05/01/2011 Physical Therapy 09/15/2013 Physical Therapy 11/28/2021 Physical Therapy 11/21/2021 CT Scan : Head, with/without contrast H-CBC with AUTO DIFF 09/24/2010 H-CBC with AUTO DIFF 01/20/2017 H-CBC with AUTO DIFF 09/02/2016 H-CBC with AUTO DIFF 03/28/2015 H-CBC with AUTO DIFF 09/06/2013 H-CBC with AUTO DIFF 11/28/2008 H-CBC with AUTO DIFF 07/08/2011 H-THROAT CULTURE 11/28/2008 H-THROAT CULTURE 09/24/2010 H-IRON & TIBC 06/12/2009 H-FOLATE, SERUM 06/12/2009 H-FERRITIN 06/12/2009 H-CMP 03/28/2015 H-CMP 09/02/2016 H-CMP 01/20/2017 H-CMP 09/06/2013 H-LIPID PANEL 02/14/2016 H-LIPID PANEL 09/06/2013 H-LIPID PANEL 09/02/2016 H-LIPID PANEL 03/28/2015 H-LIPID PANEL 01/20/2017 H-TSH 09/02/2016 H-SED RATE 07/08/2011 H-NOAH PROFILE 07/08/2011 [id number] NUCLEAR AG IgG 11/28/2008 [id number] NUCLEAR AG IgM 11/28/2008 H-URINALYSIS 07/08/2011 C-CBC 03/02/2010 C-CMP 03/02/2010 C-LIPID PANEL 03/02/2010 M-Complete Blood Count Auto Diff 018 M-Complete Blood Count Auto Diff 020 M-Complete Blood Count Auto Diff 019 M-Complete Blood Count Auto Diff 020 M-Comprehensive Metabolic Panel 11/10/19 20 M-Comprehensive Metabolic Panel 09/25/19 19 M-Comprehensive Metabolic Panel 04/01/19 20 M-Comprehensive Metabolic Panel 11/14/19 18 M-Lipid Panel 11/13/2017 M-Lipid Panel 09/24/2018 M-Lipid Panel 04/01/2019 M-Lipid Panel 10/30/2022 M-Lipid Panel 11/10/2019 M-Free T4 (Free Thyroxine) 11/13/2017 M-Thyroid Stimulating Hormone 11/13/2017 M-Thyroid Stimulating Hormone 10/30/2022 M-Thyroid Stimulating Hormone 04/01/2019 M-Thyroid Stimulating Hormone 09/24/2018 M-Vitamin B12 09/24/2018 M-Vitamin D 25 Hydroxy 04/01/2019 M-Vitamin D 25 Hydroxy 11/01/2020 M-Vitamin D 25 Hydroxy 10/30/2022 M-Vitamin D 25 Hydroxy 11/10/2019 M-Vitamin D 25 Hydroxy 09/24/2018 M-Folate 10/30/2022 Physical Therapy Eval and Treat 07/25/19 23 LIPID PANEL, STANDARD (7600) 05/16/2023 COMPREHENSIVE METABOLIC PANEL (19735) CBC (INCLUDES DIFF/PLT) (6399) HEMOGLOBIN A1c (496) 05/16/2023 HEMOGLOBIN A1c (496) 10/29/2023 FOLATE, SERUM (466) 05/16/2023 VITAMIN B12 (927) 05/16/2023 TSH W/REFLEX TO FT4 (18775) 05/16/2023 VITAMIN D,25-OH,TOTAL,IA [phone] Insurance Providers Payer Name Payer Address Payer Phone Subscriber Number Group Number Insured Name Patient Relationship to Insured Coverage Start Date Coverage End Date [employer] [place] [employer] [address] [address] [place] [phone] [id number] Bridgette Herr Self - patient is the insured Medications Administered Medication Instructions Date of Administration Dosage Notes Dexamethasone 4mg Injection 12/18/2022 4 mg Medical (General) History Medical History History ICD Code depression psoriasis anxiety hyperlipidemia tobacco use Migraine headaches Asthma with COPD - diagnosed by Dr Nandini dickey reflux gastritis screening colonoscopy 2021, tubular adenoma, repeat [address] Cao Abnormal CT chest - followed by Dr Cheek gi Surgical History Surgery Date(Month/Year) appendectomy ovarian cyst nasal surgery 2009 mirena colonoscopy Hospitalization History Reason Date(Month/Year) 08/10-08/15/2024 allergic reaction
--- OUTSIDE RECORDS SUMMARY | 2024-11-16 08:44 | XMS_ITS | Clinical Summary ---
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 Gender Identity Not on file Sexual Orientation Not on file Plan of Treatment Health Maintenance Due Date Last Done Comments CT Colonography 1971 Colonoscopy 1971 Colorectal Cancer Screening 1971 FOBT/FIT 1971 Fit-DNA (Cologuard) 1971 Sigmoidoscopy 1971 Depression Screening (12+) 1983 Tobacco Cessation Counseling and Screening (12+) 1983 HIV Screening 1986 Hepatitis C Screening 1989 DTAP/TDAP/TD VACCINES (1 - Tdap) 1990 Pap Smear 02/25/1992 Lipid Panel 02/25/2016 Breast Cancer Screening 01/19/2020 01/18/2018 Pneumococcal 50+ years (2 of 2 - PCV) 02/24/202108/2016 COVID-19 VACCINE (1 - season) 2023 Influenza Vaccine (#1) 2024 0, 12/21/2019, 12/28/2015 Shingles Vaccine (Zoster) Completed 07/17/2021, 12/2021 Insurance [employer] [facility]
--- OUTSIDE RECORDS SUMMARY | 2024-11-16 08:44 | XMS_ITS | Encounter Summary ---
Author Organization Healthcare Address [address] [place] [address] Care Team Providers Care Senior Project Leader/Team Lead Name Role Phone Anne Hancock CELIA Primary Care Provider [phone] Encounter Details Date Type Department Care Team (Late st Contact Info) Description 09/21/2024 Telephone [facility] [address] [place] [address] Batch, Andrey Ahn, PharmD Social History Tobacco Use Types Packs/Day Years [...] any time in the past 12 m onths, were you homeless or living in a group home (including now)? No 08/13/2024 Utilities Answer Date Recorded In the past 12 months has th e [employer], gas, oil, or water company threatened to shut off services in your home? No 08/13/2024 PHQ-2A Answer Date Recorded Patient Health Questionnaire-2 Score 0 10/18/2022 Comments No Sex and Gender Information Value Date Recorded Sex Assigned at Not on file Legal Sex Female 6:58 PM EDT Gender Identity Not on file Sexual Orientation Not on file documented as of this encounter Miscellaneous Notes * Telephone Encounter - Andrey Lozada PharmD - 09/23/2024 9:50 AM EDT [facility] Plan of Care - [facility] Review Reviewed patient's current medication list for drug interaction with specialty medication: No interaction identified Adherence Summary: Issues identified - No clinical intervention needed; Why? Held doses due to IV antibiotics Adverse events/side effect summary: No adverse events/side effects identified Storage, disposal, and administration summary: No issues identified Condition Summary: Improved Plan of care goal: Improving or maintaining quality of life and Control signs and symptoms of disease Therapeutic Goal Summary: Patient is achieving progress toward goal Patients therapy is appropriate to: Continue Did the patient have any additional questions or needs to be coordinated with additional members ofthe care team (Physical therapy, Social Work, etc)? no Summary: Pharmacist reviewed the plan of care in regards to specialty medication Cosentyx for diagnosis PsA. Assessment: Patient has ceased IV antibiotics and is clear to resume Cosentyx. Plan/Patient specific needs: Restart Cosentyx Patient/caregiver participated in the development and expressed understanding of the plan of care. Patient/caregiver had no additional questions or concerns for the care team. Patient/caregiver voiced understanding of the goals with the regimen and agreed to attend follow up appointments to assess progress toward their goal. The plan of care will be reviewed at least annually, or more often if there is a need. Andrey Lozada PharmD documented in this encounter Plan of Treatment Upcoming Encounters Date Type Department Care Team (Late st Contact Info) Description 01/13/2025 10:30 AM EDT Office Visit [facility] [address] [place] [id number] Rafael Michele APRN [address] [place] [address] documented as of this encounter Visit Diagnoses Not on filedocumented in this encounter Additional Health Concerns Assessment Noted Time A fall risk assessment has been complete d for the patient 05/13/2024 9:20 AM EST A Body Mass Index follow-up plan has been documented for the patient 09/30/2024 3:45 PM EDT documented as of this encounter Care Teams Senior Project Leader/Team Lead Relationship Specialty Start Date End Date Anne Hancock APRN [address] [address] PCP - General 07/28/20 documented as of this encounter
--- OUTSIDE RECORDS SUMMARY | 2024-11-16 08:45 | XMS_ITS | Clinical Summary ---
Author Organization Healthcare Address [address] [place] [address] Care Team Providers Care Appliance Counselor Name Role Phone Anne Hancock CELIA Primary Care Provider [phone] Allergies Active Allergy Reactions Criticality Noted Date Comments Albuterol Hives Medium 07/13/2014 Amoxicillin-Pot Clavulanate Hives,Rash Medium 01/20/20 18 Tolerated cefepime 07/2024 Bupropion Hives Medium 01/19/2018 Cephalexin Hives Medium 07/13/2014 Tolerated cefepime 07/2024 Codeine Hives Medium 01/19/2018 Escitalopram Hives Medium 01/09/2022 Levofloxacin Hives Medium 07/13/2014 Phenol Hives Medium 10/18/2022 Medications Fremanezumab-vfrm 225 MG/1.5ML solution auto-injector Inject 1.5 mL under the skin every 30 days. 10/19/19 21 Active Rimegepant Sulfate (Nurtec) 75 MG orally disintegrating tablet Dissolve 1 tablet on the tongue as needed. 11/25/19 21 Active cetirizine (ZyrTEC) 10 MG tablet Take 1 tablet by mouth daily. 10/27/19 21 Active fluticasone (Flonase) 50 MCG/ACT nasal spray Administer 2 sprays into each nostril daily. 11/16/19 21 Active ipratropium-albute rol (Combivent Respimat) 20-100 MCG/ACT inhaler Inhale 1 puff every 6 hours as needed for wheezing or shortness of breath. 11/16/19 21 Active diclofenac (Voltaren) 1 % topical gel Place on the skin 4 times a day. 11/22/19 21 Active halobetasol (UltraVATE) 0.05 % ointment Apply 1 application topically 2 (two) times a day. 10/10/19 21 Active omeprazole (PriLOSEC) [address] capsule Take 1 capsule by mouth daily. Do not crush or chew. Active folic acid (Folvite) 1 MG tablet Take 1 tablet by mouth daily. 08/19/19 22 Active montelukast (Singulair) 10 MG tablet Take 1 tablet by mouth daily. 09/26/19 23 Active KP Ketotifen Fumarate 0.035 % ophthalmic solution Administer 1 drop into both eyes 2 times a day. 03/26/19 24 Active Azelastine HCl 137 MCG/SPRAY solution Administer 2 sprays into each nostril nightly. 12/18/19 23 Active traZODone (Desyrel) 50 MG tablet Take 2 tablets by mouth nightly. 04/14/19 25 Active atorvastatin (Lipitor) 80 MG tablet Take 1 tablet by mouth daily. 01/29/20 24 Active venlafaxine XR (Effexor-XR) 150 MG 24 hr capsule Take 1 capsule by mouth daily. 04/14/19 25 Active celecoxib (CeleBREX) 100 MG capsule Take 1 capsule (100 mg) by mouth 2 (two) times a day. 60 capsule 11 05/13/19 25 Active Secukinumab, 300 MG Dose, (Cosentyx Sensoready, 300 MG,) 150 MG/ML solution auto-injectorIndic ations:Psoriatic arthritis (CMS/HCC),Plaque psoriasis Inject 300 mg under the skin every 28 (twenty-eight) days. 2 mL 8 05/13/19 25 Active leflunomide (Arava) 10 MG tablet Take 2 tablets by mouth daily. 60 tablet 4 07/29/19 25 Active valsartan-hydroCHL OROthiazide (Diovan-HCT) 80-12.5 MG tablet Take 1 tablet by mouth daily. Active tiotropium-olodate rol (Stiolto Respimat) 2.5-2.5 MCG/ACT aerosol solution inhaler Inhale 2 Inhalations daily. Active chlorhexidine (Peridex) 0.12 % solution Use 15 mL in the mouth or throat 2 times a day as needed for wound care. 473 mL 08/17/19 25 Active ibuprofen 600 MG tablet Take 1 tablet by mouth every 8 hours. 28 tablet 08/17/19 25 Active methocarbamol (Robaxin) 500 MG tablet Take 1 tablet by mouth 4 times a day. 40 tablet 08/17/19 25 Active oxyCODONE (Roxicodone) 5 MG immediate release tablet Take 1 tablet by mouth every 6 hours as needed for moderate pain or severe pain. 8 tablet 08/17/19 25 Active senna-docusate (Susie-Colace) 8.6-50 MG tablet Take 1 tablet by mouth 2 times a day. 20 tablet 08/17/19 25 Active Additional Information Patient not taking.Reported on 09/21/2024 amLODIPine (Norvasc) 10 MG tablet 1 (one) time each day at the same time. Active ertapenem (INVanz) injection 09/21/19 25 Active oxyCODONE-acetamin ophen (Percocet) 5-325 MG tablet 07/24/19 25 Active Active Problems Problem Noted Date Diagnosed Date Chronic obstructive pulmonary disease 08/11/2024 HTN (hypertension) 08/11/2024 Gastroesophageal reflux disease 08/11/2024 Rheumatoid arthritis 08/11/2024 Smoker 08/11/2024 Submental abscess 08/10/2024 Encounters Date Type Department Care Team Description 09/21/2024 10:30 AM EDT Office Visit [facility] [address] [place] [address] Leighann Rodriguez APRN Osteomyelitis of mandible (Primary Dx); Receiving intravenous antibiotic treatment at home; Hospital discharge follow-up 09/21/2024 Telephone [facility] [address] [place] [address] Batch, Andrey Ahn, PharmD 09/21/2024 Travel 08/19/2024 1:00 PM EDT Office Visit [facility] [address] [address] Amador Johansen DMD Submental abscess (Primary Dx) 08/19/2024 Travel 08/18/2024 Telephone [facility] [address] [place] [address] Ada Rubio LPN 08/17/2024 Telephone [facility] [address] [address] Surgeon Taylor MD 08/17/2024 Telephone [facility] [address] [address] Surgeon Claudia, 08/17/2024 Clinical Support [facility] [address] [place] [address] Patricio Butterfield, PharmD 08/10/2024 5:36 PM EDT - 08/16/2024 12:31 PM EDT Hospital Encounter [facility] [address] [place] [address] Anthony Jeong MD Tucker, Steven R, DMD Submental abscess (Primary Dx) Discharge Disposition: Home or Self Care from Last 3 Months Immunizations Immunization Administration Dates Next Due Influenza, injectable, quadrivalent 12/21/2019,1 Pneumococcal Polysaccharide PPV23 01/20/2017 Family History Medical History Relation Name Comments Breast cancer Cousin 1 Family history of malignant neoplasm of breast Thyroid cancer Cousin 2 Family histor y of malignant neoplasm of thyroid Conversions - Other Maternal Grandfather malignant neoplasm of skin Breast cancer Maternal Grandmother Family history of malignant neoplasm of breast Diabetes Other 1 Hyperlipidemia Other 2 Hypertension Other 3 Liver cancer Paternal Grandfather Family history of liver cancer Relation Name Status Comments Cousin 1 Cousin 2 Maternal Grandfather Maternal Grandmother Other 1 Other 2 Other 3 Paternal Grandfather Social History Tobacco Use Types Packs/Day Years Used Date Smoking Tobacco: Former Cigarettes Smokeless Tobacco: Never Tobacco Cessation:Counseling Given: Not Answered Alcohol Use Standard Drinks/Week Comments Not Currently [...] money to buy more. Never true 08/14/19 Within the past 12 months, t he [...] any time in the past 12 m [facility], were you homeless or living in a long-term (including now)? No 08/13/2024 Utilities Answer Date Recorded In the past 12 months has th e [employer], gas, oil, or water [employer] threatened to shut off services in your home? No 08/13/2024 PHQ-2A Answer Date Recorded Patient Health Questionnaire-2 Score 0 10/18/2022 Comments No Sex and Gender Information Value Date Recorded Sex Assigned at Not on file Legal Sex Female 6:58 PM EDT Gender Identity Not on file Sexual Orientation Not on file Last Filed Vital Signs Vital Sign Reading Time Taken Comments Blood Pressure 128/84 09/21/2024 10:20 AM EDT Pulse 74 09/21/2024 10:20 AM EDT Temperature 36.6 C (97.8 F) 09/21/2024 10:20 AM EDT Respiratory Rate 18 08/16/2024 7:36 AM EDT Oxygen Saturation 95% 09/21/2024 10:20 AM EDT Inhaled Oxygen Concentration - - Weight 76.8 kg (169 lb 5 oz) 09/21/2024 10:20 AM EDT Height 154.9 cm (5' 1 ) 09/21/2024 10:20 AM EDT Body Mass Index 31.99 09/21/2024 10:20 AM EDT Plan of Treatment Upcoming Encounters Date Type Department Care Team (Late st Contact Info) Description 01/13/2025 10:30 AM EDT [facility] Visit [facility] [address] [place] [address] Rafael Michele, [employer] [address] [place] [address] Health Maintenance Due Date Last Done Comments Dental Oral Exam 1970 Dental Prophylaxis 1970 Dental X-Ray: Bitewings 1970 Dental X-Ray: Full Mouth 1970 [facility]-Infant/Child/Adol SDOH Screenings 1971 [facility]-DTaP,Tdap,and Td Vaccines (1 - Tdap) 1990 [facility]-Hepatitis B Vaccines (1 of 3 - 19+ 3-dose series) 1990 [facility]-Zoster Vaccines (1 of 2) 1990 [facility]-Pap Smear 02/25/1992 [facility]-Cervical Cancer Screening 2001 [facility]-HPV/Cotest 2001 CT Colonography 02/25/2016 Colonoscopy 02/25/2016 FIT-DNA 02/25/2016 FIT 02/25/2016 FOBT 02/25/2016 Sigmoidoscopy 02/25/2016 [facility]-Colorectal Cancer Screening 02/25/2016 [id number] Vaccine (3 - Pfizer risk series) 07/28/2020 06/30/2020, 06/09/2020 [facility]-Breast Cancer Screening 2021 01/19/2018 [facility]-Pneumococcal Vaccine: 50+ Years (2 of 2 - PCV) 2021 01/20/2017 [facility]-Influenza Vaccine (#1) 2024 12/21/2019, [facility]- SDOH Screenings 02/13/2025 [facility]-Adult SDOH Screenings 02/13/2025 08/13/2024 [facility]-Depression Screening 05/13/2025 05/13/2024 [facility]-HIV Screening Completed 08/10/2024, 07/13/2014 [facility]-Hepatitis C Screening Completed 2024, 12/09/2016, 07/13/2014 [facility]-Obesity Intervention Completed 025, 08/19/2024, 08/17/2024, Additional history exists HPV Vaccines Aged Out No longer eligi ble based on patient's age to complete this topic [facility]-HIB Vaccines Aged Out No longer e ligible based on patient's age to complete this topic [facility]-Hepatitis A Vaccines Aged Out No longer eligible based on patient's age to complete this topic [facility]-IPV Vaccines Aged Out No longer e ligible based on patient's age to complete this topic [facility]-Rotavirus Vaccines Aged Out No lo nger eligible based on patient's age to complete this topic Procedures Procedure Name Priority Date/Time Associated Diagnosis Comments DISCONTINUE PICC Routine 09/21/2024 10:4 0 AM EDT Osteomyelitis of mandible CBC WITH AUTO DIFFERENTIAL Routine 09/16/2024 COMPREHENSIVE METABOLIC PANEL, PLASMA Routine 09/16/2024 C-REACTIVE PROTEIN, PLASMA Routine 09/16/2024 CBC WITH AUTO DIFFERENTIAL Routine 09/09/2024 C-REACTIVE PROTEIN, PLASMA Routine 09/09/2024 UREA NITROGEN, PLASMA Routine 09/09/2024 CREATININE, PLASMA Routine 09/09/2024 HEPATIC FUNCTION PANEL Routine 09/09/2024 CBC WITH AUTO DIFFERENTIAL Routine 09/02/2024 C-REACTIVE PROTEIN, PLASMA Routine 09/02/2024 COMPREHENSIVE METABOLIC PANEL, PLASMA Routine 09/02/2024 COMPREHENSIVE METABOLIC PANEL, PLASMA Routine 08/26/2024 C-REACTIVE PROTEIN, PLASMA Routine 08/26/2024 CBC WITH AUTO DIFFERENTIAL Routine 08/26/2024 CBC WITH AUTO DIFFERENTIAL Routine 08/19/2024 C-REACTIVE PROTEIN, PLASMA Routine 08/19/2024 UREA NITROGEN, PLASMA Routine 08/19/2024 CREATININE, PLASMA Routine 08/19/2024 HEPATIC FUNCTION PANEL Routine 08/19/2024 HEPATITIS C ANTIBODY - ED W/REFLEX TO HCV QUANT PCR STAT 08/10/2024 6:22 PM EDT ED HIV 1/2 ANTIBODY/ANTIGEN SCREEN WITH REFLEX TO HIV I/II DIFFERENTIATION STAT 08/10/2024 6:22 PM EDT MAMMOGRAPHY BREAST DIAGNOSTIC TOMOSYNTHESIS BILATERAL Routine 01/19/2018 12:00 AM EST from Last 3 Months or Most Recently Relevant to Health Maintenance Results * Discontinue PICC (09/21/2024 10:40 AM EDT) Narrative Coral Armendariz RN - 09/21/2024 10:40 AM EDT Coral Armendariz RN 09/21/2024 10:46 AM Discontinue PICC Date/Time: 09/21/2024 10:40 AM Performed by: Coral Armendariz RN Authorized by: Leighann Rodriguez APRN Consent: Consent obtained: Verbal Consent given by: Patient [place] protocol: Procedure explained and questions answered to [...] Procedure completion: Tolerated well, no immediate complications Result [facility] Leighann Rodriguez APRN IV THERAPY ORDERABLES Daja l Result * CBC and Differential (09/16/2024) Only the most recent of5 resultswithin the time period is included. Pathologist [facility] External WBC 6.1 4.5 - 11.5 10^3/ul External Red Blood Cell (RBC) 4.49 External Hemoglobin (Hgb) 12.80 External Platelet Count (Plt) 241 External Neutrophil Abs 3.73 External Lymphocyte-Absol [place] 1.59 External Eos-Absolute 0.25 10^3/ul Blood Venous blood specimen / Unknown 09/16/2024 Result [facility] Provider LAB BLOOD ORDERABLES Final R esult * (ABNORMAL) C-Reactive Protein, Plasma (09/16/2024) Only the most recent of5 resultswithin the time period is included. Pathologist [facility] External C-Reactive Protein(CRP) 0.4(A) 0.05 - 0.3 mg/dl Blood Venous blood specimen / Unknown 09/16/2024 Result [facility] Provider LAB BLOOD ORDERABLES Final R esult * Comprehensive Metabolic Panel, Plasma (09/16/2024) Only the most recent of3 resultswithin the time period is included. Pathologist [facility] External BUN 9 External Creatinine Blood 0.9 mg/dL External AST (SGOT) 80 External ALT (SGPT) 135 External Alkaline Phosphatase 82 External Bilirubin Total 0.5 mg/dL Blood Venous blood specimen / Unknown 09/16/2024 [facility] Provider LAB BLOOD ORDERABLES Final R esult * Creatinine, Plasma (09/09/2024) Only the most recent of2 resultswithin the time period is included. Pathologist [facility] External Creatinine Blood 0.9 0.6 - 1.0 mg/dL Blood Venous blood specimen / Unknown 09/09/2024 Donn Rush MD LAB BLOOD ORDERABLES Final Re sult * Urea Nitrogen, Plasma (09/09/2024) Only the most recent of2 resultswithin the time period is included. Pathologist [facility] External BUN 12 7 - 18 mg/dL Blood Venous blood specimen / Unknown 09/09/2024 Donn Rush MD LAB BLOOD ORDERABLES Final Re sult * (ABNORMAL) Hepatic Function Panel (09/09/2024) Only the most recent of2 resultswithin the time period is included. Pathologist [facility] External Alkaline Phosphatase 76 50 - 120 U/L External Bilirubin Total 0.6 0.4 - 1.5 mg/dL External ALT (SGPT) 111(A) 12 - 78 U/L External AST (SGOT) 72(A) 15 - 37 U/L Blood Venous blood specimen / Unknown 09/09/2024 Donn Rush MD LAB BLOOD ORDERABLES Final Re sult * ED HIV 1/2 Antibody/Antigen Screen w/Reflex to HIV 1/2 Differentiation (08/10/2024 6:22 PM EDT) Pathologist [facility] HIV 1 & 2 Antibody/Antigen Screen Non Reactive Non Reactive 08/10/2024 7:48 PM EDT [facility] Comment:Screening for HIV 1 & 2 antibodies, and P24 antigen is NONREACTIVE. No confirmatory testing is required. Blood Venous blood specimen / Unknown Venipuncture / Unknown 08/10/2024 6:22 PM EDT 08/10/2024 7:08 PM EDT Anthony Jeong MD LAB BLOOD ORDERABLES Fi nal Result Performing Organization Address City/[facility] Co de Phone Number [facility] [address] [place] [address] * Hepatitis C Antibody - ED (08/10/2024 6:22 PM EDT) Hepatitis C Antibody Negative Negative 08/10/2024 7:46 PM EDT [facility] Blood Venous blood specimen / Unknown Venipuncture / Unknown 08/10/2024 6:22 PM EDT 08/10/2024 7:07 PM EDT Anthony Jeong MD LAB BLOOD ORDERABLES Fi nal Result Performing Organization Address [facility] de Phone Number [facility] [address] [place] [address] * Mammography Breast Diagnostic Tomosynthesis Bilateral (01/19/2018 12:00 AM EST) Anatomical Region Laterality Modality Breast Bilateral Mammography Impressions 01/19/2018 12:44 PM EST BI-RADS Assessment Category 3: Probably benign finding. RECOMMENDATION: Finding 1: Short term follow-up mammogram and ultrasound of the right breast in 6 months. Finding 3: Cyst aspiration was offered for symptom relief. COMMUNICATION: The patient was seen today by the [facility] surgery/oncology team. They discussed the findings as well as our recommendations with the patient and a printed lay language version of the imaging report was given to the patient at the time of visit. The mammogram was read with the assistance of CAD and tomosynthesis. Dictated By: Kingston Uriarte M.D. Verified By: Kingston Uriarte M.D. on 01/19/2018 at 12:38:11 PM Page 2 of 2 Narrative 01/19/2018 12:44 PM EST REQUESTING PHYSICIAN: SELMA PARKER REASON FOR EXAMINATION/PROCEDURE: 2nd op EXAMINATION / PROCEDURE: Diag Mamm Servando w/cad Jan 19 2018:44; LORIN DIAGNOSTIC SERVANDO Jan 19 2018:44; US R BREAST-AXILLA IF PERF LTD Jan 19 2018 - 12:1 5; US L BREAST-AXILLA IF PERF LTD Jan 19 2018:15; HISTORY: Patient is 47 years old and is seen for a second opinion. The patient has the following family history of breast cancer: maternal grandmother and cousin female. COMPARIS ON: The present examination has been compared to prior imaging studies performed at [facility] on 06/29/2013, 11/11/2014, 11/13/2015, 12/04/2016, 12/23/2016 and 06/23/2017. MAMMOGRAM TECHNIQUE: The following mammographic views were o btained: bilateral craniocaudal; bilateral mediolateral oblique; and bilateral tomosynthesis images were obtained. Computer assisted detection was used in the interpretation of this study. FINDINGS: MAMMOGRAM The breast tissue is heter ogeneously dense, which may obscure detection of small masses. Finding 1: There is an oval mass measuring 23 millimeters in the right breast at 8 o'clock located 7 centimeters from the nipple. Ultrasound was performed to further evaluate. Finding 2: There is a mass in the left breast at 11 o'clock. Mass correlates to the palpable concern in the left breast at 11 o'clock. Ultrasound was performed to further evaluate. Finding 3: correlates to the palpable concern in the left breast at 3 o'clock Ultrasound was performed to further evaluate. ULTRASOUND Finding 1: A focused ultrasound was performed in the right breast at 8 o'clock 7 cm from the nipple using a radial and anti-radial approach. Ultrasound demonstr ates a clustered microcyst or two lose cysts measuring 21 x 20 x 10 mm in the right breast at 8 o'clock located 7 centimeters from the nipple. This correlates with the mammographic finding. Finding 2: A focused ultrasound was performed in the left breast at 11 o'clock 6 cm from the nipple using a radial and anti-radial approach. Ultrasound demonstrates a stable simple cyst measuring 21 x 21 x 4 mm in the left breast at 11 o'clock located 6 centimeters from the nipple. Finding porfirio elates to the palpable concern in the left breast at 11 o'clock. Finding 3: A focused ultrasound was performed in the left breast in the area of the palpable concern at 3 o'clock 6 cm from the nipple using a radial and anti-radial approach. There is a stable simple cyst measuring 40 x 40 x 25 mm in the left breast at 3 o'clock located 6 centimeters from the nipple. Finding correlates to the palpable concern in the left breast at 3 o'clock. IMPRESSION: BI-RADS Assessment Categ ory 3: Probably benign finding. RECOMMENDATION: Finding 1: Short term follow-up mammogram and ultrasound of the right breast in 6 months. Finding 3: Cyst aspiration was offered for symptom relief. COMMUNICATION: The patient was seen t curry by the [facility] surgery/oncology team. They discussed the findings as well as our recommendations with the patient and a printed lay language version of the imaging report was given to the patient at the time of visit. The mammogram was read wi th the assistance of CAD and tomosynthesis. Read By: KINGSTON URIARTE M.D. Signed By: KINGSTON URIARTE M.D. on 01/19/2018 at 12:43:25 Verified by: KINGSTON URIARTE M.D. on Jan 19 2018 12:43P Transcribed by: [facility] on Jan 19 2018 12:43P Dictated by: KINGSTON URIARTE M.D. on Jan 19 2018 12:43P Patient Name:Bridgette Mcknight : 1970 Age: 47 Gender: femaleDate of Service: 01/19/2018 eferring Phy:Selma Parker APRNAccount: [phone] Selma Parker APRN [facility] [address] [place] [address] FINAL REPORT PROCEDURE: Tomosynthesis Diagnostic Bilateral - bilateral , Diagnostic Mammogram With CAD - bilateral , Right Breast Ultrasound limited and Axilla - right and Left Breast Ultrasound limited and Axilla - left HISTORY: Patient is 47 years old and is seen for a second opinion. The patient has the following family history of breast cancer: maternal grandmother and cousin female. COMPARISON: The present examination has been compared to prior imaging studies performed at [facility] on 06/29/2013, 11/11/2014, 11/13/2015, 12/04/2016, 12/23/2016 and 06/23/2017. MAMMOGRAM TECHNIQUE: The following mammographic views were obtained: bilateral craniocaudal; bilateral mediolateral oblique; and bilateral tomosynthesis images were obtained. Computer assisted detection was used in the interpretation of this study. FINDINGS: MAMMOGRAM The breast tissue is heterogeneously dense, which may obscure detection of small masses. Finding 1: There is an oval mass measuring 23 millimeters in the right breast at 8 o'clock located 7 centimeters from the nipple. Ultrasound was performed to further evaluate. Finding 2: There is a mass in the left breast at 11 o'clock. Mass correlates to the palpable concern in the left breast at 11 o'clock. Ultrasound was performed to further evaluate. Finding 3: correlates to the palpable concern in the left breast at 3 o'clock Ultrasound was performed to further evaluate. ULTRASOUND Page 1 of 2 Patient Name:Bridgette Mcknight : 1970 Age: 47 Gender: femaleDate of Service: 01/19/2018 eferring Phy:Selma Parker, APRNAccount: [phone] Finding 1: A focused ultrasound was performed in the right breast at 8 o'clock 7 cm from the nipple using a radial and anti-radial approach. Ultrasound demonstrates a clustered microcyst or two lose cysts measuring 21 x 20 x 10 mm in the right breast at 8 o'clock located 7 centimeters from the nipple. This correlates with the mammographic finding. Finding 2: A focused ultrasound was performed in the left breast at 11 o'clock 6 cm from the nipple using a radial and anti-radial approach. Ultrasound demonstrates a stable simple cyst measuring 21 x 21 x 4 mm in the left breast at 11 o'clock located 6 centimeters from the nipple. Finding correlates to the palpable concern in the left breast at 11 o'clock. Finding 3: A focused ultrasound was performed in the left breast in the area of the palpable concern at 3 o'clock 6 cm from the nipple using a radial and anti-radial approach. There is a stable simple cyst measuring 40 x 40 x 25 mm in the left breast at 3 o'clock located 6 centimeters from the nipple. Finding correlates to the palpable concern in the left breast at 3 o'clock. Procedure Note Kingston Uriarte - 07/23/2020 REQUESTING PHYSICIAN: SELMA PARKER REASON FOR EXAMINATION/PROCEDURE: 2nd op EXAMINATION / PROCEDURE: Diag Mamm Servando w/cad Jan 19 2018:44; LORIN DIAGNOSTIC SERVANDO Jan 19 2018:44; US R BREAST-AXILLA IF PERF LTD Jan 19 2018 12:1 5; US L BREAST-AXILLA IF PERF LTD Jan 19 2018 - 12:15; HISTORY: Patient is 47 years old and is seen for a second opinion. The patient has the following family history of breast cancer: maternal grandmother and cousin female. COMPARIS ON: The present examination has been compared to prior imaging studies performed at [facility] on 06/29/2013, 11/11/2014, 11/13/2015, 12/04/2016, 12/23/2016 and 06/23/2017. MAMMOGRAM TECHNIQUE: The following mammographic views were o btained: bilateral craniocaudal; bilateral mediolateral oblique; and bilateral tomosynthesis images were obtained. Computer assisted detection was used in the interpretation of this study. FINDINGS: MAMMOGRAM The breast tissue is heter ogeneously dense, which may obscure detection of small masses. Finding 1: There is an oval mass measuring 23 millimeters in the right breast at 8 o'clock located 7 centimeters from the nipple. Ultrasound was performed to further evaluate. Finding 2: There is a mass in the left breast at 11 o'clock. Mass correlates to the palpable concern in the left breast at 11 o'clock. Ultrasound was performed to further evaluate. Finding 3: correlates to the palpable concern in the left breast at 3 o'clock Ultrasound was performed to further evaluate. ULTRASOUND Finding 1: A focused ultrasound was performed in the right breast at 8 o'clock 7 cm from the nipple using a radial and anti-radial approach. Ultrasound demonstr ates a clustered microcyst or two lose cysts measuring 21 x 20 x 10 mm in the right breast at 8 o'clock located 7 centimeters from the nipple. This correlates with the mammographic finding. Finding 2: A focused ultrasound was performed in the left breast at 11 o'clock 6 cm from the nipple using a radial and anti-radial approach. Ultrasound demonstrates a stable simple cyst measuring 21 x 21 x 4 mm in the left breast at 11 o'clock located 6 centimeters from the nipple. Finding porfirio elates to the palpable concern in the left breast at 11 o'clock. Finding 3: A focused ultrasound was performed in the left breast in the area of the palpable concern at 3 o'clock 6 cm from the nipple using a radial and anti-radial approach. There is a stable simple cyst measuring 40 x 40 x 25 mm in the left breast at 3 o'clock located 6 centimeters from the nipple. Finding correlates to the palpable concern in the left breast at 3 o'clock. IMPRESSION: BI-RADS Assessment Categ ory 3: Probably benign finding. RECOMMENDATION: Finding 1: Short term follow-up mammogram and ultrasound of the right breast in 6 months. Finding 3: Cyst aspiration was offered for symptom relief. COMMUNICATION: The patient was seen t curry by the [facility] surgery/oncology team. They discussed the findings as well as our recommendations with the patient and a printed lay language version of the imaging report was given to the patient at the time of visit. The mammogram was read wi th the assistance of CAD and tomosynthesis. Read By: KINGSTON URIARTE M.D. Signed By: KINGSTON URIARTE M.D. on 01/19/2018 at 12:43:25 Verified by: KINGSTON URIARTE M.D. on Jan 19 2018 12:43P Transcribed by: [facility] on Jan 19 2018 12:43P Dictated by: KINGSTON URIARTE M.D. on Jan 19 2018 12:43P Patient Name:Bridgette Mcknight : 1970 Age: 47 Gender: femaleDate of Service:01/19/2018 eferring Phy:Selma Parker APRNAccount: [phone] Selma Parker APRN [facility] [address] [place] [address] FINAL REPORT PROCEDURE: Tomosynthesis Diagnostic Bilateral - bilateral , Diagnostic Mammogram WithCAD - bilateral , Right Breast Ultrasound limited and Axilla - right and Left Breast Ultrasound limited and Axilla- left HISTORY: Patient is 47 years old and is seen for a second opinion. The patient hasthe following family history of breast cancer: maternal grandmother and cousin female. COMPARISON: The present examination has been compared to prior imaging studiesperformed at [facility] Outside Location on 06/29/2013, 11/11/2014, 11/13/2015, 12/04/2016, 12/23/2016 and06/23/2017. MAMMOGRAM TECHNIQUE: The following mammographic views were obtained: bilateral craniocaudal;bilateral mediolateral oblique; and bilateral tomosynthesis images were obtained. Computer assisted detection was usedin the interpretation of this study. FINDINGS: MAMMOGRAM The breast tissue is heterogeneously dense, which may obscure detection ofsmall masses. Finding 1: There is an oval mass measuring 23 millimeters in the rightbreast at 8 o'clock located 7 centimeters from the nipple. Ultrasound was performed to further evaluate. Finding 2: There is a mass in the left breast at 11 o'clock. Masscorrelates to the palpable concern in the left breast at 11 o'clock. Ultrasound was performed to further evaluate. Finding 3: correlates to the palpable concern in the left breast at 3o'clock Ultrasound was performed to further evaluate. ULTRASOUND Page 1 of 2 Patient Name:Bridgette Mcknight : 1970 Age: 47 Gender: femaleDate of Service:01/19/2018 eferring Phy:Selma Parker, APRNAccount: [phone] Finding 1: A focused ultrasound was performed in the right breast at 8o'clock 7 cm from the nipple using a radial and anti-radial approach. Ultrasound demonstrates a clustered microcyst ortwo lose cysts measuring 21 x 20 x 10 mm in the right breast at 8 o'clock located 7 centimeters from the nipple.This correlates with the mammographic finding. Finding 2: A focused ultrasound was performed in the left breast at 11o'clock 6 cm from the nipple using a radial and anti-radial approach. Ultrasound demonstrates a stable simple cystmeasuring 21 x 21 x 4 mm in the left breast at 11 o'clock located 6 centimeters from the nipple. Finding correlates tothe palpable concern in the left breast at 11 o'clock. Finding 3: A focused ultrasound was performed in the left breast in thearea of the palpable concern at 3 o'clock 6 cm from the nipple using a radial and anti-radial approach. There is astable simple cyst measuring 40 x 40 x 25 mm in the left breast at 3 o'clock located 6 centimeters from the nipple.Finding correlates to the palpable concern in the left breast at 3 o'clock. IMPRESSION: BI-RADS Assessment Category 3: Probably benign finding. RECOMMENDATION: Finding 1: Short term follow-up mammogram and ultrasound of the rightbreast in 6 months. Finding 3: Cyst aspiration was offered for symptom relief. COMMUNICATION: The patient was seen today by the [facility] surgery/oncology team. Theydiscussed the findings as well as our recommendations with the patient and a printed lay language version of theimaging report was given to the patient at the time of visit. The mammogram was read with the assistance of OLIVERIO sloan. Dictated By: Kingston Uriarte M.D. Verified By: Kingston Uriarte M.D. on 01/19/2018 at 12:38:11 PM Page 2 of 2 us Selma Parker APRN IMG BI PROCEDURES Final Res ult from Last 3 Months or Most Recently Relevant to Health Maintenance Insurance [facility] MEDICAID Advance Directives * Full Code (Latest Code Status on File) Date Activated Date Inactivated Comments 08/10/2024 7:25 PM 08/16/2024 2:31 PM Question Answer Comments I have reviewed the capacity from the link above and, if needed, have updated to appropriate status: Yes Care Teams Appliance Counselor Relationship Specialty Start Date End Date Anne Hancock APRN [address] [place] [address] PCP - General 07/28/20
== END 2024-11-16 23:59 | disposition home or self-care (01) ==
LOC: RAD 08:24
PROVIDERS: PCP Nurse Practitioner Family; Visit Provider Internal Medicine Pulmonary Disease
DX: R91.8 Other nonspecific abnormal finding of lung field (principal); Z12.2 Encounter for screening for malignant neoplasm of respiratory organs; F17.210 Nicotine dependence, cigarettes, uncomplicated
CPT/HCPCS: 71271

== ENCOUNTER 2025-01-26 08:27 | Outpatient (CLI) | payer MEDICAID, SELFPAY ==
--- OUTSIDE RECORDS SUMMARY | 2024-06-19 16:30 | XMS_ITS ---
Author Organization [facility] Address [address] [place] [address] Care Team Providers Care Md Do [facility] Name Role Phone Anne Hancock Primary Care Provider Darian Escamilla Unavailable [phone] Migration, Provider Unavailable Unavailable Allergies Allergen (clinical drug ingredient) Drug/Non Drug Allergy documented on EMR Reaction Allergy Type Onset Date Status CHLOROSEPTIC (uncoded) hives/rash Allergy Active LEVAQUIN (uncoded) rash Allergy A ctive ZYBAN (uncoded) hives Allergy Acti ve amoxicillin / clavulanate Augmentin hives Drug Allergy Active escitalopram Lexapro Unknown Drug Allergy Acti ve codeine Codeine hives Drug Allergy Active REASON FOR VISIT [facility] To [facility] Conversion Encounter Medications Medication SIG (Take, Route, Frequency, Duration) Notes Start Date End Date Status Folic Acid 1 MG 1 tab(s) orally once a day; Duration: 30 day(s) Active traZODone HCl 50 MG 2 tablets orally onc e a day at night; Duration: 30 days Active Atorvastatin Calcium 80 MG 1 tab(s) orally once a day; Duration: 90 days Active Valsartan-hydroCHLOR Othiazide 80-12.5 MG 1 tab(s) orally once a day; Duration: 30 days 06/02/2024 Active ALL DAY ALLERGY (CETIRIZINE) 10 MG 1 TAB(S) ORALLY ONCE A DAY; Duration: 90 DAYS *Please review for potential replacement for e-prescription and drug interaction check* Active Halobetasol Propionate 0.05 % 1 margaret applied topically 2 times a day; Duration: 25 Active Diclofenac Sodium 1 % as directed applied topically 4 times a day; Duration: 30 days Active amLODIPine Besylate 10 MG 1 tab(s) orally once a day; Duration: 90 days Active Celecoxib 100 MG 1 cap(s) orally 2 times a day prn; Duration: 30 days Active Ajovy VFRM 225 MG/1.5 ML INJECT SUBCUTANEOUSLY ONCE A MONTH; Duration: 30 DAYS *Please review and pick correct strength-formulat ion from [employer] options. If intended option is not shown, discontinue and re-order from Quick Search* Active Fluticasone Propionate 50 MCG/ACT 2 sprays each nostril once a day; Duration: 30 days Active Promethazine HCl 25 MG 1 tab(s) orally every 6 hours as needed for nausea/vomiting; Duration: 3 days 05/27/2023 Active NURTEC ODT 75 MG TAKE 1 TABLET BY MOUTH EVERY DAY NEEDED FOR MIGRAINES; Duration: 30 *Please review for potential replacement for e-prescription and drug interaction check* Active Omeprazole 20 MG 1 cap(s) orally once a day; Duration: 30 day(s) Active Methocarbamol 500 MG 1-2 tablets orally 2 times a day as needed for spasm; Duration: 10 days Active Combivent Respimat 20-100 MCG/ACT INHALE 1 PUFF BY MOUTH EVERY 6 HOURS NEEDED; Duration: 30 Active Ibuprofen 600 MG 1 tab(s) orally 4 times a day as needed; Duration: 30 Active Cosentyx 150 MG/ML 300mg subcutaneously every 4 weeks Active Stiolto Respimat 2.5 MCG-2.5 MCG/INH 2 PUFF(S) INHALED EVERY 24 HOURS *Please review and pick correct strength-formulat ion from [employer] options. If intended option is not shown, discontinue and re-order from Quick Search* Active Leflunomide 10 MG 1 tab(s) orally once a day Active Venlafaxine HCl ER 150 MG 1 cap(s) orally once a day; Duration: 30 days 06/16/2024 Active Encounters Encounter Location Date Provider Diagnosis [facility] [address] [place], [place] [address] 06/19/2024 Provider Migration Depression with anxiety F41.8 Assessments Encounter Date Diagnosis (ICD Code) Assessment Notes Treatment Notes Treatment Clinical Notes Section Notes 06/19/2024 Depression with anxiety (ICD-10 - F41.8) Plan Of Treatment Medication Medication Name Sig Start Date Stop Date Notes Venlafaxine HCl ER 150 MG 1 cap(s) orall y once a day; Duration: 30 days 06/16/2024 Progress Notes * Bridgette JENKINS RDOB:1969 (54 yo F)Acc No.[id number]:06/19/2024 Patient: Bridgette CASE Provider: Shaheed schmid Migration :1970 A ge:54 Y S ex:Female Date:06/19/2024 Address:[address] [place], [place] [id number] Pcp:Anne Hancock Subjective: * Chief Complaints: * [address] [facility] * Medical History: * Medications: T aking Leflunomide 10 MG Tablet 1 tab(s) orally once a day , Taking Stiolto Respimat 2.5 MCG-2.5 MCG/INH AEROSOL 2 PUFF(S) INHALED EVERY 24 HOURS , Notes to Pharmacist: *Please review and pick correct strength-formulation from [facility] options. If intended option is not shown, discontinue and re-order from Quick Search*, Taking Cosentyx 150 MG/ML Solution Prefilled Syringe 300mg subcutaneously every 4 weeks , Taking Ibuprofen 600 MG Tablet 1 tab(s) orally 4 times a day as needed , Taking Combivent Respimat 20-100 MCG/ACT Aerosol Solution INHALE 1 PUFF BY MOUTH EVERY 6 HOURS NEEDED , Taking Fluticasone Propionate 50 MCG/ACT Suspension 2 sprays each nostril once a day , Taking NURTEC ODT 75 MG TABLET, DISINTEGRATING TAKE 1 TABLET BY MOUTH EVERY DAY NEEDED FOR MIGRAINES , Notes to Pharmacist: *Please review for potential replacement for e-prescription and drug interaction check*, Taking Promethazine HCl 25 MG Tablet 1 tab(s) orally every 6 hours as needed for nausea/vomiting , Taking Omeprazole 20 MG Capsule Delayed Release 1 cap(s) orally once a day , Taking Methocarbamol 500 MG Tablet 1-2 tablets orally 2 times a day as needed for spasm , Taking Ajovy VFRM 225 MG/1.5 ML SOLUTION INJECT SUBCUTANEOUSLY ONCE A MONTH , Notes to Pharmacist: *Please review and pick correct strength-formulation from [employer] options. If intended option is not shown, discontinue and re-order from Quick Search*, Taking Celecoxib 100 MG Capsule 1 cap(s) orally 2 times a day prn , Taking amLODIPine Besylate 10 MG Tablet 1 tab(s) orally once a day , Taking Diclofenac Sodium 1 % Gel as directed applied topically 4 times a day , Taking Halobetasol Propionate 0.05 % Ointment 1 margaret applied topically 2 times a day , Taking traZODone HCl 50 MG Tablet 2 tablets orally once a day at night , Taking Folic Acid 1 MG Tablet 1 tab(s) orally once a day , Taking Atorvastatin Calcium 80 MG Tablet 1 tab(s) orally once a day , Taking ALL DAY ALLERGY (CETIRIZINE) 10 MG TABLET 1 TAB(S) ORALLY ONCE A DAY , Notes to Pharmacist: *Please review for potential replacement for e-prescription and drug interaction check*, Taking Valsartan-hydroCHLOROthiazide 80-12.5 MG Tablet 1 tab(s) orally once a day * Allergies: C odeine: hives, ZYBAN: hives, LEVAQUIN: rash, CHLOROSEPTIC: hives/rash, Augmentin: hives, Lexapro: Side Effects. Objective: * Vitals: Assessment: * Assessment: 1. D epression with anxiety - F41.8 Plan: * Treatment: * * Electronic signature of Prov marizolr Migration on 01/26/2025 at 08:34 AM EST Sign off status: Pending * Provider: Shaheed schmid Migration Date: 0 06/19/2024 Generated for Ernesto resendez/Lynda/Rebekah on: 1 03/28/2024 08:34 AM EST
--- OUTSIDE RECORDS SUMMARY | 2025-01-11 08:06 | XMS_ITS ---
Author Organization [facility] Address [address] [place] [address] Care Team Providers Care Automotive Customer Experience Advisor Name Role Phone Anne Hancokc Primary Care Provider Darian Escamilla [phone] Encounters Encounter Location Date Provider Diagnosis [facility] [address] [place] [address] 01/11/2025 Anne Hancock Visit for screening mammogram Z12.31 Assessments Encounter Date Diagnosis (ICD Code) Assessment Notes Treatment Notes Treatment Clinical Notes Section Notes 01/11/2025 Visit for screening mammogram (ICD-10 - Z12.31) Plan Of Treatment Pending Test Test Name Order Date Mammogram: Screening 01/11/2025 Progress Notes * Bridgette JENKINS RDOB:1969 (54 yo F)Acc No.[id number]:01/11/2025 Patient: Linn MAXBridgette CHO :1970 A ge:54 Y S ex:Female Address:[address] [place], [place] [address] [address] Subjective: * Chief Complaints: * * Medical History: * Surgical History: * Hospitalization/Major Diagno stic Procedure: * Medications: Objective: * Vitals: * Physical Examination: Assessment: * Assessment: 1. V isit for screening mammogram - Z12.31 (Primary) Plan: * Treatment: * Procedure Codes: * true * Date: Generated for Ernesto resendez/Lynda/Rebekah on: 03/28/2024 08:34 AM EST
--- NOTE | 2025-01-26 08:29 | MM_ITS ---
PROCEDURE INFORMATION: Exam: MG Bilateral Screening 3D Mammography Exam date and time: 01/26/2025 8:31 AM Age: 54 years old Clinical indication: Screening examination TECHNIQUE: Imaging protocol: Bilateral Screening tomosynthesis and 2D mammography including computer-aided detection (CAD) when performed. COMPARISON: 1. MG MM DIG SCREENING MAMM BI W/CAD 11/29/2022 10:58 AM 2. MG MM DIG SCREENING MAMM BI W/CAD 04/04/2021 8:00 AM FINDINGS: MAMMOGRAPHY: Breast composition: The breasts are heterogeneously dense, which may obscure small masses. Mass: No suspicious masses. Architectural distortion: None. Calcifications: No suspicious calcifications. Asymmetric density: None. Skin thickening: None. Axillary adenopathy: None. IMPRESSION: No mammographic evidence of malignancy. Annual screening is recommended unless otherwise clinically indicated. ASSESSMENT: BI-RADS Category 1: Negative.
--- OUTSIDE RECORDS SUMMARY | 2025-01-26 08:34 | XMS_ITS | Encounter Summary ---
Author Organization Healthcare Address [address] [place] [address] Care Team Providers Care Reservations And Ticketing Agent Name Role Phone Anne Hancock APRN Primary Care Provider [phone]- [phone] Reason for Visit * Reason Onset Date Comments Med Refill 04/18/2023 Encounter Details Date Type Department Care Team (Late st Contact Info) Description 04/18/2023 Refill [facility] Medicine Specialties [address] [place] [address] Cassidy Bolanos MD [address] [place] [address] Psoriatic arthritis (CMS/HCC) Social History [...] Care Team (Late st Contact Info) Description 01/27/2025 10:30 AM EST Office Visit [facility] Medicine Specialties [address] [place] [address] Rafael Michele, CELIA [address] [place] [address] documented as of this encounter Visit Diagnoses Diagnosis Psoriatic arthritis (CMS/HCC) Psoriatic arthropathy documented in this encounter Additional Health Concerns Assessment Noted Time A fall risk assessment has been complete d for the patient 04/19/2022 10:44 AM EST A Body Mass Index follow-up plan has been documented for the patient 10/18/2022 7:22 PM EDT documented as of this encounter Care Teams Reservations And Ticketing Agent Relationship Specialty Start Date End Date Anne Hancock APRN [address] [id number] PCP - General 07/28/20 documented as of this encounter
--- OUTSIDE RECORDS SUMMARY | 2025-01-26 08:34 | XMS_ITS | Patient Health Record ---
Author Organization [facility] Address [address] [facility] [address] [place] [address] Care Team Providers Care Trailhead Construction Worker Name Role Phone Anne Hancock Primary Care Provider Darian Escamilla Unavailable [phone] Migration, Provider Unavailable Unavailable Allergies Allergen (clinical [...] Range Notes QUANTIFERON(R)-TB GOLD PLUS, 1 TUBE (19876) Reviewed date:11/04/2024 10:50:09 AM Interpretation: Performing Lab:[facility], [facility] [place] [place] [id number] [facility] Lennox Menendez Notes/Report: NON-FASTING QUANTIFERON(R)-TB GOLD PLUS, [...] T-lymphocytes. For additional information, please refer to https://education.iFlipd.Bromium/faq/IMK301 (This link is being provided for informational/ educational purposes only.) Medications Medication SIG (Take, Route, Frequency, Duration) Notes Start Date End Date Status Valsartan-hydroCHLOR Othiazide 80-12.5 MG 1 tablet Orally Once a day; Duration: 90 days Active Leflunomide 10 MG 1 tab(s) orally once a day Active Stiolto Respimat 2.5 MCG-2.5 MCG/INH 2 PUFF(S) INHALED EVERY 24 HOURS *Please review and pick correct strength-formulat ion from Advanced Oncotherapy options. If intended option is not shown, discontinue and re-order from Quick Search* Active Ibuprofen 600 MG 1 tab(s) orally 3 times a day as needed for joint pain; Duration: 30 days Active Atorvastatin Calcium 80 MG TAKE 1 TABLET BY MOUTH EVERY DAY FOR 90 DAYS; Duration: 90 Active Ajovy 225 MG/1.5ML INJECT SUBCUTANEOUSL Y ONCE A MONTH 30 DAYS; Duration: 30 Active Diclofenac Sodium [...] PRN FOR MIGRAINES; Duration: 28 days Active Cosentyx 150 MG/ML 300mg subcutaneously every 4 weeks Active Combivent Respimat 20-100 MCG/ACT INHALE 1 [...] DAY FOR 30 DAYS; Duration: 30 Active Cetirizine HCl 10 MG TAKE 1 TABLET BY MOUTH EVERY DAY FOR 90 DAYS; Duration: 30 Active Folic Acid 1 MG TAKE 1 TABLET BY MOUTH EVERY DAY FOR 30 DAYS; Duration: 90 Active traZODone HCl 50 MG 2 tablets orally onc e a day at night; Duration: 90 days Active amLODIPine Besylate 5 MG TAKE 1 TABLET BY MOUTH EVERY DAY; Duration: 30 Active Venlafaxine HCl ER 150 MG 1 capsule with food Orally Once a day; Duration: 90 days Active Nystatin 543196 UNIT/GM 1 application Externally 3 times a day; Duration: 7 days 12/23/2024 Active Immunizations Vaccine Route Administration Date Status Comme nts Flublok IM Intramuscular 12/21/2019 Administered Lot # [id number] Flublok IM Intramuscular 01/09/2022 Administered Pneumovax 23 [...] Status W/U Status Risk Notes Problem Hyperlipidemia (79306423) Hyperlipidemia, unspecified (E78.5) Active confirmed Problem Anxiety disorder (172729818) Anxiety disorder, unspecified (F41.9) Active confirmed Problem Simple chronic bronchitis (19442728) Simple chronic bronchitis (J41.0) Active confirmed Problem Localized, primary osteoarthritis of the hand (128298108) Primary osteoarthritis, right hand (M19.041) Active confirmed Problem Localized, primary osteoarthritis of the hand (598606470) Primary osteoarthritis, left hand (M19.042) Active confirmed Problem Tobacco use (629063495) Tobacco use (Z72.0) Active confirmed Problem Mixed anxiety and depressive disorder (773773021) Depression with anxiety (F41.8) Active confirmed Problem Allergic rhinitis (28136926) Allergic rhinitis (J30.9) Active confirmed Problem Vitamin D deficiency (57103310) Vitamin D deficiency (E55.9) Active confirmed Problem Tobacco use (595029832) Tobacco use disorder (Z72.0) Active confirmed Problem Asthma-chronic obstructive pulmonary disease overlap syndrome (disorder) (39865770040410694) 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) Active confirmed Problem Psoriasis (7613842) Psoriasis (L40.9) Active co nfirmed Problem Seasonal allergy (389642421) Seasonal allergies (J30.2) Active confirmed Problem Chronic pain (65163495) Other chronic pain (G89.29) Active confirmed Problem BMI 30+ - obesity (342498219) BMI 32.0-32.9,adult (Z68.32) Active confirmed Problem Abnormal mammogram (722731298) Abnormal mammogram (R92.8) Active confirmed Problem Chronic insomnia (442519713) Chronic insomnia (F51.04) Active confirmed Problem Migraine without aura, not refractory (380654515) Migraine NOS/not intrcbl (G43.009) Active confirmed Problem Dysphagia (75628070) Dysphagia, unspecified type (R13.10) Active confirmed Problem Folate deficiency (158172546) Folate deficiency (E53.8) Active confirmed Problem Elevated blood-pressure reading without diagnosis of hypertension (546642741) Elevated blood pressure reading (R03.0) Active confirmed Problem Nocturia (042172162) Nocturia more than twice per night (R35.1) Active confirmed Problem Acne rosacea, erythematous telangiectatic type (800677) Acne rosacea, erythematous telangiectatic type (L71.8) Active confirmed Problem Thyromegaly (3297768) Thyromegaly (E01.0) Active confirmed Problem Menopausal flushing (115800717) Hot flashes, menopausal (N95.1) Active confirmed Problem Drug-induced immunodeficiency (disorder) (352320510) 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) Active confirmed Problem Impaired fasting glycaemia (386226483) IFG (impaired fasting glucose) (R73.01) Active confirmed Problem Sebaceous cyst of skin of breast (77285914) Sebaceous cyst of skin of left breast (N60.82) Active confirmed Problem Tomography - chest abnormal (670222728) Abnormal CT of the chest (R93.89) Active confirmed Problem Reflux gastritis (78042797) Reflux gastritis (K29.60) Active confirmed Problem Chronic migraine (921377617) Chronic migraine (G43.709) Active confirmed Problem Body mass index 30.00 to 34.99 (838699851854032) BMI 34.0-34.9,adult (Z68.34) Active confirmed Problem Essential hypertension (49280080) Essential hypertension (I10) Active confirmed Problem 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) Active confirmed Problem Disorder of immune function (445414786) Immunosuppressed status (D89.9) Active confirmed Vital Signs Heart Rate 92 /min 08/25/2024 Temperature 98 degrees Fahrenheit 08/25/2024 Blood pressure diastolic 80 mm Hg 08/25/2024 Height 60 in 08/25/2024 Blood pressure systolic 122 mm Hg 08/25/2024 Weight 168 lbs 08/25/2024 BMI 32.81 kg/m2 08/25/2024 Encounters Encounter Location Date Provider Diagnosis [facility] [address] [facility] [address] [place] [address] 06/19/2024 Provider Migration Depression with anxiety F41.8 [facility] [address] [address] 06/02/2024 Anne Karissa Essential hypertensi on I10 ; Polyarticular psoriatic arthritis L40.59 ; Depression with anxiety F41.8 ; BMI 34.0-34.9,adult Z68.34 and Acute left-sided low back pain without sciatica M54.50 [facility] [address] [address] 06/16/2024 Anne Karissa Essential hypertensi on I10 ; Depression with anxiety F41.8 and Hot flashes, menopausal N95.1 [facility] [address] [address] 08/25/2024 Anne Karissa Dental abscess K04.7 ; Essential hypertension I10 ; Hospital discharge follow-up Z09 ; BMI 32.0-32.9,adult Z68.32 ; Polyarticular psoriatic arthritis L40.59 ; Immunosuppressed status D89.9 and Submental abscess L02.01 [facility] [address] [facility] [address] [place] [address] 04/20/2024 Anne Karissa [facility] [address] [place] [address] 06/29/2024 Anne Karissa [facility] [address] [place] [address] 07/01/2024 Anne Karissa [facility] [place] [address] [place] [address] 08/04/2024 Anne Karissa [facility] [place] [address] [place] [address] 08/19/2024 Darian Escamilla [facility] [address] [place] [address] 08/25/2024 Anne Karissa [facility] [place] [address] [place] [address] 09/14/2024 Anne Karissa [facility] [address] [place] [address] 09/22/2024 Anne Karissa Polyarticular psoria tic arthritis L40.59 and Immunosuppressed status D89.9 [facility] [address] [place] [address] 12/07/2024 Anne Karissa Depression with anxi ety F41.8 [facility] [address] [place] [address] 12/08/2024 Anne Karissa Essential hypertensi on I10 and Depression with anxiety F41.8 [facility] [address] [facility] [address] [place] [address] 12/23/2024 Anne Karissa [facility] [place] [address] [place] [address] 01/04/2025 Anne Karissa [facility] [address] [place] [address] 01/11/2025 Anne Karissa Visit for screening mammogram Z12.31 Assessments Encounter Date Diagnosis (ICD Code) Assessment Notes Treatment Notes Treatment Clinical Notes Section Notes 06/02/2024 Essential hypertension (ICD-10 - I10) Echo [...] will have to monitor response to treatment 06/19/2024 Depression with anxiety (ICD-10 - F41.8) 08/25/2024 Essential hypertension (ICD-10 - I10) resume amlodipine 06/16/2024 Depression with anxiety (ICD-10 - F41.8) mood is stable but recommend increasing dose to see if this will help with her hot flashes. gabapentin may be a reasonable option. concerned about use of Veozah due to risk of hepatotoxicity and her other medications with similar risk. 06/16/2024 Essential hypertension (ICD-10 - I10) Much better control, requested results of echo 08/25/2024 Dental abscess (ICD-10 - K04.7) s/p extractions and abscess I&D...completing IV antibiotics and has FU arranged agree with holding immunosuppressants until IV antibiotics complete 09/22/2024 Immunosuppressed status (ICD-10 - D89.9) 09/22/2024 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) 12/07/2024 Depression with anxiety (ICD-10 - F41.8) 12/08/2024 Essential hypertension (ICD-10 - I10) 01/11/2025 Visit for screening mammogram (ICD-10 - Z12.31) 08/25/2024 Hospital discharge follow-up (ICD-10 - Z09) records reviewed 06/02/2024 Depression with anxiety (ICD-10 - F41.8) no changes recommended, much of this seems situational at present 12/08/2024 Depression with anxiety (ICD-10 - F41.8) 06/16/2024 Hot flashes, menopausal (ICD-10 - N95.1) 08/25/2024 BMI 32.0-32.9,adult (ICD-10 - Z68.32) discussed [...] : Chest 06/10/2019 Ultrasound : Breast, Left 06/24/2017 Ultrasound : Breast, Left 12/13/2016 Ultrasound : Pelvis, Transvaginal 2011 Mammogram : Diagnostic 06/04/2017 Mammogram : Left breast 12/13/2016 Mammogram : Left breast 12/23/2016 Mammogram : Right Breast 12/23/2016 Rapid Strep 11/28/2008 H-CRP 06/01/2014 , Rapid Urine 09/25/2011 Physical Therapy 11/28/2021 Physical Therapy 11/21/2021 Physical Therapy 09/15/2013 Physical Therapy 05/01/2011 CT Scan : Head, with/without contrast H-CBC with AUTO DIFF 07/08/2011 H-CBC with AUTO DIFF 09/02/2016 H-CBC with AUTO DIFF 11/28/2008 H-CBC with AUTO DIFF 03/28/2015 H-CBC with AUTO DIFF 01/20/2017 H-CBC with AUTO DIFF 09/06/2013 H-CBC with AUTO DIFF 09/24/2010 H-THROAT CULTURE 09/24/2010 H-THROAT CULTURE 11/28/2008 H-IRON & TIBC 06/12/2009 H-FOLATE, SERUM 06/12/2009 H-FERRITIN 06/12/2009 H-CMP 09/02/2016 H-CMP 09/06/2013 H-CMP 03/28/2015 H-CMP 01/20/2017 H-LIPID PANEL 01/20/2017 H-LIPID PANEL 03/28/2015 H-LIPID PANEL 02/14/2016 H-LIPID PANEL 09/06/2013 H-LIPID PANEL 09/02/2016 H-TSH 09/02/2016 H-SED RATE 07/08/2011 H-NOAH PROFILE 07/08/2011 P-WGUMLMC-HOSF NUCLEAR AG IgG 11/28/2008 R-ITXTHVZ-DHFW NUCLEAR AG IgM 11/28/2008 H-URINALYSIS 07/08/2011 C-CBC 03/02/2010 C-CMP 03/02/2010 C-LIPID PANEL 03/02/2010 M-Complete Blood Count Auto Diff 019 M-Complete Blood Count Auto Diff 020 M-Complete Blood Count Auto Diff 020 M-Complete Blood Count Auto Diff 018 M-Comprehensive Metabolic Panel 11/14/19 18 M-Comprehensive Metabolic Panel 11/10/19 M-Comprehensive Metabolic Panel 04/01/19 M-Comprehensive Metabolic Panel 09/25/19 M-Lipid Panel 04/01/2019 M-Lipid Panel 09/24/2018 M-Lipid Panel 11/10/2019 M-Lipid Panel 11/13/2017 M-Lipid Panel 10/30/2022 M-Free T4 (Free Thyroxine) 11/13/2017 M-Thyroid Stimulating Hormone 11/13/2017 M-Thyroid Stimulating Hormone 10/30/2022 M-Thyroid Stimulating Hormone 04/01/2019 M-Thyroid Stimulating Hormone 09/24/2018 M-Vitamin B12 09/24/2018 M-Vitamin D 25 Hydroxy 09/24/2018 M-Vitamin D 25 Hydroxy 04/01/2019 M-Vitamin D 25 Hydroxy 11/10/2019 M-Vitamin D 25 Hydroxy 10/30/2022 M-Vitamin D 25 Hydroxy 11/01/2020 M-Folate 10/30/2022 Mammogram: Screening 01/11/2025 Physical Therapy Eval and Treat 07/25/19 23 LIPID PANEL, STANDARD (7600) 05/16/2023 COMPREHENSIVE METABOLIC PANEL (86275) CBC (INCLUDES DIFF/PLT) (6399) HEMOGLOBIN A1c (496) 10/29/2023 HEMOGLOBIN A1c (496) 05/16/2023 FOLATE, SERUM (466) 05/16/2023 VITAMIN B12 (927) 05/16/2023 TSH W/REFLEX TO FT4 (94443) 05/16/2023 VITAMIN D,25-OH,TOTAL,IA [phone] Insurance Providers Payer Name Payer Address Payer Phone Subscriber Number Group Number Insured Name Patient Relationship to Insured Coverage Start Date Coverage End Date [employer] [place] [employer] [address] [address] [place] [address] [id number] Bridgette Herr Self - patient is the insured Medications Administered Medication Instructions Date of Administration Dosage Notes Dexamethasone 4mg Injection 12/18/2022 4 mg Medical (General) History Medical History History ICD Code depression psoriasis anxiety hyperlipidemia tobacco use Migraine headaches Asthma with COPD - diagnosed by Dr Delatorre uroj reflux gastritis screening colonoscopy 2021, tubular adenoma, repeat [address] Cao [address] CT chest - followed by Dr Cheek gi Surgical History Surgery Date(Month/Year) appendectomy ovarian cyst nasal surgery 2009 mirena colonoscopy Hospitalization History Reason Date(Month/Year) 08/10-08/15/2024 allergic reaction
--- OUTSIDE RECORDS SUMMARY | 2025-01-26 08:35 | XMS_ITS | Encounter Summary ---
Author Organization Healthcare Address [address] [place] [address] Care Team Providers Care Cell Room Supervisor Name Role Phone Anne Hancock CELIA Primary Care Provider +1- [phone] Reason for Visit * Reason Onset Date Comments Med Refill 01/12/2025 Encounter Details Date Type Department Care Team (Late st Contact Info) Description 01/12/2025 Refill [facility] [address] [place] [address] Rafael Michele, [employer] SUPERVISOR [address] [place] [address] Social History Tobacco Use Types Packs/Day Years [...] any time in the past 12 m [facility], were you homeless or living in a longterm (including now)? No 08/13/2024 Utilities Answer Date [...] encounter Miscellaneous Notes * Telephone Encounter - Estela Biswas PharmD - 01/12/2025 11:49 AM EDT 1 medication(s) has been approved per protocol. documented in this encounter Plan of Treatment Upcoming Encounters Date Type Department Care Team (Late st Contact Info) Description 01/27/2025 10:30 AM EST Office Visit [facility] [address] [place] [address] Rafael Michele APRN [address] [place] [address] documented as of this encounter Visit Diagnoses Not on filedocumented in this encounter Additional Health Concerns Assessment Noted Time A fall risk assessment has been complete d for the patient 05/13/2024 9:20 AM EST A Body Mass Index follow-up plan has been documented for the patient 09/30/2024 3:45 PM EDT documented as of this encounter Care Teams Cell Room Supervisor Relationship Specialty Start Date End Date Anne Hancock APRN [address] [id number] PCP - General 07/28/20 documented as of this encounter
--- OUTSIDE RECORDS SUMMARY | 2025-01-26 08:35 | XMS_ITS | Clinical Summary ---
Author Organization Healthcare Address [address] [place] [address] Care Team Providers Care Green Promotions Specialist Name Role Phone Anne Hancock CELIA Primary Care Provider +1- [phone] Allergies Active Allergy Reactions Criticality Noted Date [...] days. 2 mL 8 05/13/19 25 Active valsartan-hydroCHL OROthiazide (Diovan-HCT) 80-12.5 MG [...] (Percocet) 5-325 MG tablet 07/24/19 25 Active leflunomide (Arava) 10 MG tablet Take 2 tablets by mouth daily. 60 tablet 01/13/20 25 Active leflunomide (Arava) 10 MG tablet Take 2 tablets by mouth daily. 60 tablet 4 07/29/19 25 025 Discontin ued(Reord er) Active Problems Problem Noted Date Diagnosed Date Chronic obstructive pulmonary disease 08/11/2024 HTN (hypertension) 08/11/2024 Gastroesophageal reflux disease 08/11/2024 Rheumatoid arthritis 08/11/2024 Smoker 08/11/2024 Submental abscess 08/10/2024 Encounters Date Type Department Care Team Description 01/12/2025 Refill [facility] [address] [place] [id number] Rafael Michele APRN 12/16/2024 Telephone [facility] [address] [place] [address] Raquel García RPh from Last 3 Months Immunizations Immunization Administration [...] any time in the past 12 m [facility], were you homeless or living in a intermediate (including now)? No 08/13/2024 Utilities Answer Date [...] Visit [place] [facility] [address] [place] [address] Rafael Michele, CELIA [address] [place] [address] Health Maintenance Due Date Last Done Comments Dental Oral Exam 1971 Dental Prophylaxis 1971 Dental X-Ray: Bitewings 1971 Dental X-Ray: Full Mouth 1971 [facility]-/Child/Adol SDOH Screenings 1971 [facility]-DTaP,Tdap,and Td Vaccines (1 - Tdap) 1990 [facility]-Hepatitis B Vaccines (1 of 3 - 19+ 3-dose series) 1990 [facility]-Zoster Vaccines (1 of 2) 1990 [facility]-Pap Smear 02/25/1992 [facility]-Cervical Cancer Screening 2001 [facility]-HPV/Cotest 2001 CT Colonography 02/25/2016 Colonoscopy 02/25/2016 FIT-DNA 02/25/2016 FIT 02/25/2016 FOBT 02/25/2016 Sigmoidoscopy 02/25/2016 [facility]-Colorectal Cancer Screening 02/25/2016 [id number] Vaccine (3 - Pfizer risk series) 07/28/2020 [...] Procedure Name Priority Date/Time Associated Diagnosis Comments HEPATITIS C ANTIBODY - ED W/REFLEX TO HCV QUANT PCR STAT 08/10/2024 6:22 PM EDT ED HIV 1/2 ANTIBODY/ANTIGEN SCREEN WITH REFLEX TO HIV I/II DIFFERENTIATION STAT 08/10/2024 6:22 PM EDT MAMMOGRAPHY BREAST DIAGNOSTIC TOMOSYNTHESIS BILATERAL Routine 01/19/2018 12:00 AM EST from Last 3 Months or Most Recently Relevant to Health Maintenance Results * ED HIV 1/2 Antibody/Antigen Screen w/Reflex to HIV 1/2 Differentiation (08/10/2024 6:22 PM EDT) HIV 1 & 2 Antibody/Antigen Screen Non Reactive Non Reactive 08/10/2024 7:48 PM EDT [facility] Comment:Screening for HIV 1 & 2 antibodies, and P24 antigen is NONREACTIVE. No confirmatory testing is required. Blood Venous blood specimen / Unknown Venipuncture / Unknown 08/10/2024 6:22 PM EDT 08/10/2024 7:08 PM EDT us Anthony Jeong MD LAB BLOOD ORDERABLES Fi nal Result [facility] [address] [place] [address] * Hepatitis C Antibody - ED (08/10/2024 6:22 PM EDT) Pathologist [facility] Hepatitis C Antibody Negative Negative 08/10/2024 7:46 PM EDT [facility] Blood Venous blood specimen / Unknown Venipuncture / Unknown 08/10/2024 6:22 PM EDT 08/10/2024 7:07 PM EDT Anthony Jeong MD LAB BLOOD ORDERABLES Fi nal Result [facility] [address] [place] [address] * Mammography Breast Diagnostic Tomosynthesis Bilateral (01/19/2018 12:00 AM EST) Anatomical Region Laterality Modality Breast Bilateral Mammography Impressions 01/19/2018 12:44 PM EST BI-RADS Assessment Category 3: Probably benign finding. RECOMMENDATION: Finding 1: Short term follow-up mammogram and ultrasound of the right breast in 6 months. Finding 3: Cyst aspiration was offered for symptom relief. COMMUNICATION: The patient was seen today by the [facility] surgery/oncology team. They discussed the findings as well as our recommendations with the patient and a printed lay language version of the imaging report was given to the patient at the time of visit. The mammogram was read with the assistance of CAD and tomosynthesis. Dictated By: Kingston Johnson M.D. Verified By: Kingston Johnson M.D. on 01/19/2018 at 12:38:11 PM Page [...] patient was seen t curry by the [facility] surgery/oncology team. They discussed the findings as well as our recommendations with the patient and a printed lay language version of the imaging report was given to the patient at the time of visit. The mammogram was read wi th the assistance of CAD and tomosynthesis. Read By: KINGSTON JOHNSON M.D. Signed By: KINGSTON JOHNSON M.D. on 01/19/2018 at 12:43:25 Verified by: KINGSTON JOHNSON M.D. on Jan 19 2018 12:43P Transcribed by: [facility] on Jan 19 2018 12:43P Dictated by: KINGSTON JOHNSON M.D. on Jan 19 2018 12:43P Patient Name:Bridgette Mcknight : 1970 Age: 47 Gender: femaleDate of Service: 01/19/2018 eferring Phy:Kavondmitriy Parker, APRNAccount: [phone] Selma Parker APRN [facility] [address] [place] [address], [place] [address] FINAL REPORT PROCEDURE: Tomosynthesis Diagnostic Bilateral - [...] Age: 47 Gender: femaleDate of Service: 01/19/2018 efruth anning Phy:KavonFior Santoyocount: [phone] Finding 1: A focused ultrasound was performed [...] breast at 3 o'clock. Procedure Note Kingston Johnson - 07/23/2020 REQUESTING PHYSICIAN: SELMA PARKER REASON FOR EXAMINATION/PROCEDURE: 2nd op EXAMINATION / PROCEDURE: Diag Mamm Servando w/cad Jan 19 2018 - :44; LORIN DIAGNOSTIC SERVANDO Jan 19 2018:44; US [...] patient was seen t curry by the [facility] surgery/oncology team. They discussed the findings as well as our recommendations with the patient and a printed lay language version of the imaging report was given to the patient at the time of visit. The mammogram was read wi th the assistance of CAD and tomosynthesis. Read By: KINGSTON JOHNSON M.D. Signed By: KINGSTON JOHNSON M.D. on 01/19/2018 at 12:43:25 Verified by: KINGSTON JOHNSON M.D. on Jan 19 2018 12:43P Transcribed by: [facility] on Jan 19 2018 12:43P Dictated by: KINGSTON JOHNSON M.D. on Jan 19 2018 12:43P Patient Name:Bridgette Mcknight : 1970 Age: 47 Gender: femaleDate of Service:01/19/2018 eferring Phy:Selma Parker, APRNAccount: [phone] Selma Parker [facility] [address] [place] [address], [place] [address] FINAL REPORT PROCEDURE: Tomosynthesis Diagnostic Bilateral - [...] femaleDate of Service:01/19/2018 eferring Phy:Selma Parker, APRNAccount: [phone] Finding 1: A focused ultrasound was performed [...] The patient was seen today by the [facility] surgery/oncology team. Theydiscussed the findings as well as our recommendations with the patient and a printed lay language version of theimaging report was given to the patient at the time of visit. The mammogram was read with the assistance of OLIVERIO sloan. Dictated By: Kingston Johnson M.D. Verified By: Kingston Johnson M.D. on 01/19/2018 at 12:38:11 PM Page 2 of 2 Selma Parker APRN IMG BI PROCEDURES Final Res ult from Last 3 Months or Most Recently Relevant to Health Maintenance Insurance [employer] Advance Directives * Full Code (Latest Code Status on File) Date Activated Date Inactivated Comments 08/10/2024 7:25 PM 08/16/2024 2:31 PM Question Answer Comments I have reviewed the capacity from the link above and, if needed, have updated to appropriate status: Yes Care Teams Green Promotions Specialist Relationship Specialty Start Date End Date Anne Hancock APRN [address] [place] [address] PCP - General 07/28/20
--- OUTSIDE RECORDS SUMMARY | 2025-01-26 08:35 | XMS_ITS | Encounter Summary ---
Author Organization Healthcare Address [address] [place] [address] Care Team Providers Care Photo Booth Operator Name Role Phone Anne Hancock CELIA Primary Care Provider +1- [phone] Encounter Details Date Type Department Care Team (Late st Contact Info) Description 12/16/2024 Telephone [facility] [address] [place] [address] Raquel García, [facility] [place] [address] Social History Tobacco Use Types Packs/Day Years [...] any time in the past 12 m [facility], were you homeless or [...] encounter Miscellaneous Notes * Telephone Encounter - Raquel García, [facility] - 12/16/2024 9:01 AM EDT [facility] Specialty Medication Follow Up Care Plan Bridgette Herr is a 54 y.o. female assessed via phone for continuation of drug therapy Cosentyx for diagnosis PsA. Therapeutic Category: Psoriatic Arthritis Chart Review Allergies: Albuterol, Amoxicillin-pot clavulanate, Bupropion, Cephalexin, Codeine, Escitalopram, Levofloxacin,and Phenol Current Outpatient Medications Medication Instructions amLODIPine (Norvasc) 10 MG tablet Every 24 hours atorvastatin (Lipitor) 80 MG tablet Take 1 tablet by mouth daily. Azelastine HCl 137 MCG/SPRAY solution Administer 2 sprays into each nostril nightly. celecoxib (CELEBREX) 100 mg, Oral, 2 times daily cetirizine (ZYRTEC) 10 mg, Daily chlorhexidine (Peridex) 0.12 % solution 15 mL, Mouth/Throat, 2 times daily PRN Cosentyx Sensoready (300 MG) 300 mg, Subcutaneous, Every 28 days diclofenac (Voltaren) 1 % topical gel 4 times daily ertapenem (INVanz) injection fluticasone (Flonase) 50 MCG/ACT nasal spray 2 sprays, Daily folic acid (Folvite) 1 MG tablet Take 1 tablet by mouth daily. Fremanezumab-vfrm 225 MG/1.5ML solution auto-injector 1.5 mL, Every 30 days halobetasol (UltraVATE) 0.05 % ointment 1 application., 2 times daily ibuprofen 600 mg, Oral, Every 8 hours ipratropium-albuterol (Combivent Respimat) 20-100 MCG/ACT inhaler 1 puff, Every 6 hours PRN KP Ketotifen Fumarate 0.035 % ophthalmic solution 1 drop, 2 times daily leflunomide (ARAVA) 20 mg, Oral, Daily methocarbamol (ROBAXIN) 500 mg, Oral, 4 times daily montelukast (SINGULAIR) 10 mg, Daily omeprazole (PRILOSEC) 20 mg, Daily oxyCODONE (ROXICODONE) 5 mg, Oral, Every 6 hours PRN oxyCODONE-acetaminophen (Percocet) 5-325 MG tablet Rimegepant Sulfate (NURTEC) 75 mg, As needed senna-docusate (Susie-Colace) 8.6-50 MG tablet 1 tablet, Oral, 2 times daily tiotropium-olodaterol (Stiolto Respimat) 2.5-2.5 MCG/ACT aerosol solution inhaler 2 Inhalations, Daily traZODone (Desyrel) 50 MG tablet Take 2 tablets by mouth nightly. valsartan-hydroCHLOROthiazide (Diovan-HCT) 80-12.5 MG tablet 1 tablet, Daily venlafaxine XR (Effexor-XR) 150 MG 24 hr capsule Take 1 capsule by mouth daily. Problem List[1] Immunization History Administered Date(s) Administered Influenza, injectable, quadrivalent 12/28/2015, 12/21/2019 Boomerang COVID-19 Vaccine (Purple Cap) 12+ 06/09/2020, 06/30/2020 Pneumococcal Polysaccharide PPV23 01/20/2017 Selected lab results: Lab Results Component Value Date WBC 6.1 09/16/2024 HGB 12.80 09/16/2024 HCT 39.4 08/19/2024 PLT 241 09/16/2024 , Lab Results Component Value Date NA 136 08/15/2024 K 4.3 08/15/2024 CL 103 08/15/2024 CREATININE 0.9 09/16/2024 BUN 9 09/16/2024 GLUCOSE 106 (H) 08/15/2024 CALCIUM 8.9 08/15/2024 CO2 25 08/15/2024 , Lab Results Component Value Date ALBUMIN 3.8 08/10/2024 ALKPHOS 82 09/16/2024 ALT 135 09/16/2024 AST 80 09/16/2024 BILITOT 0.5 09/16/2024 , No results found for: QUANTIFERON , and Lab Results Component Value Date HEPBSAG NEGATIVE Reference Value: Negative 12/09/2016 Patient profile review for changes in Medications, Allergies, Conditions, Vaccinations? Reviewed - no changes Medication reconciliation - review all current medications including prescriptions, PTC, herbals, and supplements with the patient? Completed Is this an infusion therapy? No Patient is treatment: Experienced: Previous therapies include Cosentyx Reasons for previous treatment failure doing well on medication and will continue at this time with Cosentyx injections Is patient of child bearing potential? No Disease specific labs or assessments: Other CBC, CMP, TB Does patient have an active infection? None Drug Review Patient drug therapy initiated: Cosentyx Is the patient taking concomitant therapy for this disease? Yes - Leflunomide and Celecoxib Drug assessment : is this the appropriate drug/dose/route/frequency/duration? Yes Drug utilization review Drug-disease precautions: No clinically significant issues identified Drug-drug interactions: No clinically significant issues identified Drug-patient precautions: No clinically significant issues identified Adherence summary: What percent of doses did the patient miss in the past 4 weeks? No missed doses Therapeutic benefit summary: Patient is achieving benefit Patient's therapy is appropriate to: Continue Education and Counseling Patient refused education & counseling on disease education including an overview of the condition, its progression and potential complications, associated comorbidities, prevention strategies, goals of therapy, and treatment and therapy management. Patient refused education & counseling on medication(s) including REMS/Black box warnings, proper use, timely administration or intake, missed dose instructions, potential side effects, contraindications, safety and handling precautions, storage and disposal guidelines, and general warnings and precautions. Patient refused education & counseling on adherence including the importance of adherence and adherence management strategies. Medication specific education provided: Cosentyx Monitoring Questions Patient reported outcomes: Do you feel comfortable administering your medication and following the treatment plan as prescribed? Yes If therapy is injectable, does patient require further injection training? No How would you rate your pain on average? (0 = no pain, 10 = worst pain imaginable) 5 On a scale from 1 to 10, with 10 being very well and 1 being very poor, how are you feeling overall? 7 PREVIOUS quality of life: 6 How satisfied are you with the ongoing education and counseling you receive regarding your health condition, on a scale of 1 to 5, with 5 being completely satisfied and 1 being dissatisfied? CURRENT patient management score: 5-Completely Satisfied PREVIOUS patient management score: 5-Completely Satisfied Patient Management Assessment scores must be reviewed by a clinician with each Care Plan. Scores of2 or lower must be documented in a Clinical Intervention Care Plan. Missed doses: Have you missed a dose in the last 4 weeks? No Patient reported response to therapy In regards to your condition, how are you feeling compared to the last time we spoke? Better Disease symptoms assessment Has the patient been seen for planned or unplanned healthcare visit in the last 4 weeks? No Has the patient missed any days from work, school, or planned activities in the past 4 weeks due totheir disease? No Care Plan Questions Goal(s) of therapy: Control signs and symptoms of disease and Slow or prevent progression of disease Strategies to achieve goal(s) of therapy: Adhere to plan of care (drug therapy) Identified barrier(s) to care/intervention problem type: No problems identified (No barriers to care or risks associated with medication storage and handling identified) Mitigation strategy for identified barriers: none Outcome of Clinical Intervention: Intervention not needed Outcomes of previous adverse events/side effects: None Current adverse events/side effects patient is experiencing: No adverse events/side effects Counseled patient on selected side effects: Patient refused Summary/Plan Pharmacist reviewed the plan of care in regards to specialty medication Cosentyx for diagnosis of Psoriatic Arthritis. Patient will continue therapy.. Anticipated filling pharmacy is: Specialty Pharmacy and location of administration will be patient's home Plan/Patient specific needs: Continue to administer Cosentyx as prescribed. Patient/caregiver participated in the development and agreed to the plan of care. Patient/caregiverhad no additional questions or concerns for the care team. Patient/caregiver voiced understanding of the goals with the regimen and agreed to attend follow up appointments to assess progress toward their goal. The plan of care will be reviewed at least annually, or more often if there is a need. The patient agrees with all elements of the care plan: Yes Raquel García RPh 12/16/2024 9:01 AM [1] Patient Active Problem List Diagnosis Submental abscess Chronic obstructive pulmonary disease HTN (hypertension) Gastroesophageal reflux disease Rheumatoid arthritis (CMS/HCC) Smoker documented in this encounter Plan of Treatment Upcoming Encounters Date Type Department Care Team (Late st Contact Info) Description 01/27/2025 10:30 AM EST Office Visit [facility] [address] [place] [address] Rafael Michele APRN [address] [place] [address] documented as of this encounter Visit Diagnoses Not on filedocumented in this encounter Additional Health Concerns Assessment Noted Time A fall risk assessment has been complete d for the patient 05/13/2024 9:20 AM EST A Body Mass Index follow-up plan has been documented for the patient 09/30/2024 3:45 PM EDT documented as of this encounter Care Teams Photo Booth Operator Relationship Specialty Start Date End Date Anne Hancock APRN [address] [address] PCP - General 07/28/20 documented as of this encounter
== END 2025-01-26 23:59 | disposition home or self-care (01) ==
LOC: RAD 08:28
PROVIDERS: PCP Nurse Practitioner Family; Visit Provider Nurse Practitioner Family
DX: Z12.31 Encounter for screening mammogram for malignant neoplasm of breast (principal); R92.333 Mammographic heterogeneous density, bilateral breasts
CPT/HCPCS: 77063; 77067